=== PATIENT | male | born 1980 | race Caucasian/White ===

== ENCOUNTER 2017-11-24 22:03 | Emergency (ER) | payer MEDICAID ==
[~2017-11-24] VITALS: Ht 195.6 cm; Wt 101.2 kg
[~2017-11-24 22:03] MED LIST: ALBU6.7H INH; DIVA500T7 PO; GEO20I IM; LORA2TAB96 PO; RISP3TAB11 PO; TOPI50TA24 PO; ZIPR20CA2 PO
[2017-11-24 22:15] VITALS: BP 134/102
== END 2017-11-24 22:30 | disposition home or self-care (01) ==
LOC: ER 22:04
DX: Z00.8 Encounter for other general examination (principal); F15.10 Other stimulant abuse, uncomplicated; G89.29 Other chronic pain; M54.9 Dorsalgia, unspecified; Z79.899 Other long term (current) drug therapy
CPT/HCPCS: 99281

== ENCOUNTER 2017-11-26 17:09 | Emergency (ER) | payer MEDICAID ==
[~2017-11-26] VITALS: Ht 213244.9 cm; Wt 101.5 kg
[2017-11-26 17:45] LABS: BASOPHILS % (AUTO) 0.4 % (0-1); EOSINOPHILS # (AUTO) 0.3 X10'3 (0-0.9); EOSINOPHILS % (AUTO) 3.3 % (0-6); HEMATOCRIT 44.9 % (42.0-52.0); HEMOGLOBIN 15.2 g/dl (14.0-17.9); LYMPHOCYTES # (AUTO) 3.2 X10'3 (1.1-4.8); MEAN CORPUSCULAR HGB CONC 33.9 % (33.0-36.5); MEAN CORPUSCULAR VOLUME 88.7 FL (78-98); MEAN PLATELET VOLUME 8.6 FL (7.4-10.4); MONOCYTES # (AUTO) 0.4 X10'3 (0-0.9); MONOCYTES % (AUTO) 4.2 % (2-12); NEUTROPHILS # (AUTO) 5.2 X10'3 (1.8-7.7); NEUTROPHILS % (AUTO) 57.1 % (42-75); PLATELET COUNT 309 X10'3 (140-440); RED BLOOD COUNT 5.07 X10'6 (4.70-6.10); RED CELL DISTRIBUTION WIDTH 13.9 % (11.5-14.5); WHITE BLOOD COUNT 9.2 X10'3 (4.5-11.0)
[2017-11-26] MEDS ORDERED: TOPI50TA PO (17:56)
[2017-11-26] MEDS ORDERED: IBUP-1984 PO (17:57)
[2017-11-26 17:59] LABS: ALANINE AMINOTRANSFERASE 58 U/L (12-78); ALBUMIN/GLOBULIN RATIO 1.2 (1.1-1.5); ALKALINE PHOSPHATASE 68 IU/L (46-116); ANION GAP 7 (8-16); ASPARTATE AMINO TRANSFERASE 39 U/L (10-37); BILIRUBIN,TOTAL 0.6 MG/DL (0.1-1.0); BLOOD UREA NITROGEN 9 MG/DL (7-18); BUN/CREATININE RATIO 10.1 (5.4-32.0); CALCIUM 9.6 MG/DL (8.5-10.1); CHLORIDE 104 MMOL/L (99-107); CREATININE 0.89 MG/DL (0.60-1.10); GLUCOSE 88 MG/DL (70-104); POTASSIUM 3.9 MMOL/L (3.5-5.1); SODIUM 144 MMOL/L (135-145); TOTAL CARBON DIOXIDE 32.8 MMOL/L (24-32); TOTAL PROTEIN 7.3 G/DL (6.4-8.2); eGFR > 90 ML/MIN
[2017-11-26 18:08] LABS: ETHANOL < 0.010 GM/DL (0.0-0.010)
[2017-11-26] MEDS ORDERED: ibuprofen tablet 400 MG TABLET PO PRN (19:20)
[2017-11-26] MEDS: topiramate 25mg tablet PO SCH (20:30)
[2017-11-26] MEDS: risperiDONE 0.5mg tablet PO SCH (20:30)
[2017-11-26] MEDS: divalproex sodium 500mg tablet.DR PO SCH (20:30)
[2017-11-27 02:53] LABS: URINE AMPHETAMINE SCREEN NEGATIVE (Neg); URINE BARBITUATE SCREEN NEGATIVE (Neg); URINE BENZODIAZEPINES SCREEN NEGATIVE (Neg); URINE CANNABINOID SCREEN NEGATIVE (Neg); URINE COCAINE SCREEN NEGATIVE (Neg); URINE METHADONE SCREEN NEGATIVE (Neg); URINE OPIATE SCREEN NEGATIVE (Neg); URINE PHENCYCLIDINE SCREEN NEGATIVE (Neg)
[2017-11-27] MEDS: risperiDONE 0.5mg tablet PO SCH ×2 (07:37→20:26)
[2017-11-27] MEDS: topiramate 25mg tablet PO SCH ×2 (07:37→20:26)
[2017-11-27] MEDS: divalproex sodium 500mg tablet.DR PO SCH ×2 (07:47→20:27)
[2017-11-27] MEDS: risperiDONE 2mg tablet PO SCH (20:26)
[2017-11-28] MEDS: risperiDONE 2mg tablet PO SCH (08:13)
[2017-11-28] MEDS: divalproex sodium 500mg tablet.DR PO SCH (08:13)
[2017-11-28] MEDS: topiramate 25mg tablet PO SCH (08:14)
[2017-11-28] MEDS: risperiDONE 0.5mg tablet PO SCH (08:14)
[2017-11-28 09:57] VITALS: BP 99/58
== END 2017-11-28 09:59 ==
LOC: ER 17:10
DX: R45.851 Suicidal ideations (principal); F25.9 Schizoaffective disorder, unspecified; F15.10 Other stimulant abuse, uncomplicated; F17.200 Nicotine dependence, unspecified, uncomplicated; F41.9 Anxiety disorder, unspecified; G89.29 Other chronic pain; Z59.0 Homelessness
CPT/HCPCS: 36415; 80053; 80305; 80320; 84443; 85025; 99285

== ENCOUNTER 2017-11-29 03:08 | Emergency (ER) | payer MEDICAID ==
[~2017-11-29] VITALS: Ht 195.6 cm; Wt 100.0 kg
[~2017-11-29 03:08] MED LIST changes: -ALBU6.7H INH; -GEO20I IM; +IBUP-1984 PO; -LORA2TAB96 PO; +TOPI50TA PO; -TOPI50TA24 PO; -ZIPR20CA2 PO
[2017-11-29 03:45] VITALS: BP 118/85
== END 2017-11-29 03:47 | disposition home or self-care (01) ==
LOC: ER 03:09
DX: R41.0 Disorientation, unspecified (principal); G89.29 Other chronic pain; F41.9 Anxiety disorder, unspecified; F31.9 Bipolar disorder, unspecified; F17.210 Nicotine dependence, cigarettes, uncomplicated; F15.10 Other stimulant abuse, uncomplicated; Z59.0 Homelessness; Z79.899 Other long term (current) drug therapy
CPT/HCPCS: 99281

== ENCOUNTER 2017-12-10 16:04 | Emergency (ER) | payer MEDICAID ==
[~2017-12-10] VITALS: Ht 195.6 cm; Wt 107.5 kg
[2017-12-10 16:07] VITALS: BP 120/74
[2017-12-10] MEDS ORDERED: CYCL-1 PO (17:12)
[2017-12-10] MEDS ORDERED: TRAM50TA2 PO (17:12)
== END 2017-12-10 17:16 | disposition home or self-care (01) ==
LOC: ER 16:05
DX: S00.83XA Contusion of other part of head, initial encounter (principal); S20.222A Contusion of left back wall of thorax, initial encounter; S20.221A Contusion of right back wall of thorax, initial encounter; M62.838 Other muscle spasm; M54.2 Cervicalgia; G89.29 Other chronic pain; F15.10 Other stimulant abuse, uncomplicated; Z98.890 Other specified postprocedural states; Y08.89XA Assault by other specified means, initial encounter; Y93.89 Activity, other specified; Y92.89 Other specified places as the place of occurrence of the external cause; Y99.8 Other external cause status
CPT/HCPCS: 72040; 99284; A6449

== ENCOUNTER 2017-12-10 22:22 | Emergency (ER) | payer MEDICAID ==
[~2017-12-10] VITALS: Ht 193 cm; Wt 106.0 kg
[~2017-12-10 22:22] MED LIST changes: +CYCL-1 PO; +TRAM50TA2 PO
[2017-12-10 22:30] VITALS: BP 126/85
== END 2017-12-10 23:48 | disposition left against medical advice (07) ==
LOC: ER 22:23
DX: R51 Headache (principal); Z53.21 Procedure and treatment not carried out due to patient leaving prior to being seen by health care provider

== ENCOUNTER 2017-12-12 20:54 | Emergency (ER) | payer MEDICAID ==
[~2017-12-12] VITALS: Ht 190.5 cm; Wt 100.0 kg
[2017-12-12] MEDS ORDERED: acetaminophen 325mg tablet PO ONE (21:30)
[2017-12-12] MEDS ORDERED: ibuprofen tablet 400 MG TABLET PO ONE (21:30)
[2017-12-12 21:46] VITALS: BP 125/83
== END 2017-12-12 21:47 | disposition home or self-care (01) ==
LOC: ER 20:55
DX: M79.672 Pain in left foot (principal); M79.671 Pain in right foot; G89.29 Other chronic pain; F15.10 Other stimulant abuse, uncomplicated; Z59.0 Homelessness
CPT/HCPCS: 99283

== ENCOUNTER 2017-12-13 16:59 | Emergency (ER) | payer MEDICAID ==
[~2017-12-13] VITALS: Ht 190.5 cm; Wt 106.0 kg
[2017-12-13 18:14] LABS: BASOPHILS % (AUTO) 0.3 % (0-1); EOSINOPHILS # (AUTO) 0.2 X10'3 (0-0.9); EOSINOPHILS % (AUTO) 1.8 % (0-6); HEMATOCRIT 42.5 % (42.0-52.0); HEMOGLOBIN 14.5 g/dl (14.0-17.9); LYMPHOCYTES % (AUTO) 33.6 % (21-51); MEAN CORPUSCULAR HEMOGLOBIN 29.8 PG (27.0-31.0); MEAN CORPUSCULAR HGB CONC 34.1 % (33.0-36.5); MEAN CORPUSCULAR VOLUME 87.2 FL (78-98); MEAN PLATELET VOLUME 8.4 FL (7.4-10.4); MONOCYTES # (AUTO) 0.5 X10'3 (0-0.9); MONOCYTES % (AUTO) 5.8 % (2-12); NEUTROPHILS # (AUTO) 5.2 X10'3 (1.8-7.7); NEUTROPHILS % (AUTO) 58.5 % (42-75); PLATELET COUNT 322 X10'3 (140-440); RED BLOOD COUNT 4.87 X10'6 (4.70-6.10); WHITE BLOOD COUNT 8.9 X10'3 (4.5-11.0)
[2017-12-13 18:40] LABS: ALANINE AMINOTRANSFERASE 28 U/L (12-78); ALBUMIN 3.7 G/DL (3.4-5.0); ALBUMIN/GLOBULIN RATIO 1.2 (1.1-1.5); ALKALINE PHOSPHATASE 67 IU/L (46-116); ANION GAP 11 (8-16); ASPARTATE AMINO TRANSFERASE 21 U/L (10-37); BILIRUBIN,TOTAL 0.6 MG/DL (0.1-1.0); BLOOD UREA NITROGEN 19 MG/DL (7-18); BUN/CREATININE RATIO 21.1 (5.4-32.0); CHLORIDE 108 MMOL/L (99-107); ETHANOL < 0.010 GM/DL (0.0-0.010); GLUCOSE 108 MG/DL (70-104); POTASSIUM 3.6 MMOL/L (3.5-5.1); SODIUM 143 MMOL/L (135-145); TOTAL CARBON DIOXIDE 24.5 MMOL/L (24-32); TOTAL PROTEIN 6.9 G/DL (6.4-8.2); eGFR > 90 ML/MIN
[2017-12-13] MEDS ORDERED: ibuprofen tablet 400 MG TABLET PO PRN (19:25)
[2017-12-13] MEDS ORDERED: risperiDONE 2mg tablet PO SCH (20:00)
[2017-12-13] MEDS: divalproex sodium 500mg tablet.DR PO SCH (20:00)
[2017-12-13 20:01] LABS: CLARITY,URINE CLEAR (Clear); COLOR,URINE YELLOW (Yellow); GLUCOSE, URINE NEGATIVE (Neg); KETONES,URINE 40 mg/dl (Neg); LEUKOCYTE ESTERASE ,URINE NEGATIVE (Neg); NITRITES, URINE NEGATIVE (Neg); OCCULT BLOOD,URINE NEGATIVE (Neg); PH,URINE 6.5 (4.8-8.0); PROTEIN,URINE TRACE mg/dl (Neg)
[2017-12-13 20:06] LABS: UA COLLECTION TYPE CLN CATCH MIDSTREAM
[2017-12-13 20:09] LABS: URINE AMPHETAMINE SCREEN NEGATIVE (Neg); URINE BARBITUATE SCREEN NEGATIVE (Neg); URINE BENZODIAZEPINES SCREEN NEGATIVE (Neg); URINE CANNABINOID SCREEN NEGATIVE (Neg); URINE COCAINE SCREEN NEGATIVE (Neg); URINE METHADONE SCREEN NEGATIVE (Neg); URINE OPIATE SCREEN NEGATIVE (Neg); URINE PHENCYCLIDINE SCREEN NEGATIVE (Neg)
[2017-12-13 20:10] LABS: WBC,URINE 0-4 /HPF (0-4)
[2017-12-13 20:11] LABS: BACTERIA,URINE NONE SEEN /HPF (Neg); HYALINE CASTS 0-3 /LPF (NEGATIVE); MUCUS STRANDS MANY /LPF (Neg); RBC,URINE NONE SEEN /HPF (0-2); SQUAMOUS EPITHELIAL CELL,UR FEW /LPF (FEW)
[2017-12-13] MEDS: risperiDONE 0.5mg tablet PO SCH (21:22)
[2017-12-13] MEDS: topiramate 25mg tablet PO SCH (21:22)
[2017-12-14 05:54] VITALS: BP 107/66
[2017-12-14] MEDS: divalproex sodium 500mg tablet.DR PO SCH (07:50)
[2017-12-14] MEDS: risperiDONE 0.5mg tablet PO SCH (07:50)
[2017-12-14] MEDS: topiramate 25mg tablet PO SCH (07:50)
== END 2017-12-14 10:46 ==
LOC: ER 17:00
DX: T14.91XA Suicide attempt, initial encounter (principal); F31.9 Bipolar disorder, unspecified; F41.9 Anxiety disorder, unspecified; G89.29 Other chronic pain; F15.10 Other stimulant abuse, uncomplicated; Z59.0 Homelessness; Z79.899 Other long term (current) drug therapy; Y93.89 Activity, other specified; X83.8XXA Intentional self-harm by other specified means, initial encounter; Y99.8 Other external cause status; Y92.89 Other specified places as the place of occurrence of the external cause
CPT/HCPCS: 36415; 80053; 80305; 80320; 81001; 84443; 85025; 99285

== ENCOUNTER 2018-01-09 00:27 | Emergency (ER) | payer MEDICAID ==
[~2018-01-09] VITALS: Ht 190.5 cm; Wt 105.0 kg
[2018-01-09 00:50] VITALS: BP 137/79
== END 2018-01-09 00:50 | disposition home or self-care (01) ==
LOC: ER 00:27
DX: F29 Unspecified psychosis not due to a substance or known physiological condition (principal); G89.29 Other chronic pain; F15.90 Other stimulant use, unspecified, uncomplicated; Z59.0 Homelessness; Z79.899 Other long term (current) drug therapy
CPT/HCPCS: 99284

== ENCOUNTER 2018-01-15 14:18 | Emergency (ER) | payer MEDICAID ==
[~2018-01-15] VITALS: Ht 193 cm; Wt 105.7 kg
[~2018-01-15 14:18] MED LIST changes: -TRAM50TA2 PO
[2018-01-15 17:23] VITALS: BP 136/78
== END 2018-01-15 17:25 | disposition home or self-care (01) ==
LOC: ER 14:18
DX: R21 Rash and other nonspecific skin eruption (principal); F20.9 Schizophrenia, unspecified; F41.9 Anxiety disorder, unspecified; G89.29 Other chronic pain; F17.200 Nicotine dependence, unspecified, uncomplicated; F15.10 Other stimulant abuse, uncomplicated; Z79.899 Other long term (current) drug therapy; Z59.0 Homelessness
CPT/HCPCS: 99281

== ENCOUNTER 2018-04-29 17:43 | Emergency (ER) | payer MEDICAID ==
[~2018-04-29] VITALS: Ht 673.2 cm; Wt 112.7 kg
[2018-04-29] MEDS ORDERED: LORazepam 1 MG tablet PO ONE (18:10)
[2018-04-29] MEDS ORDERED: OLANZapine 5mg rapidly disint. tablet PO ONE (18:10)
[2018-04-29] MEDS ORDERED: diphenhydrAMINE 25mg capsule PO ONE (18:10)
[2018-04-29 18:22] LABS: BASOPHILS # (AUTO) 0.1 X10'3 (0-0.2); BASOPHILS % (AUTO) 0.9 % (0-1); EOSINOPHILS # (AUTO) 0.3 X10'3 (0-0.9); EOSINOPHILS % (AUTO) 2.6 % (0-6); HEMATOCRIT 46.3 % (42.0-52.0); HEMOGLOBIN 16.1 g/dl (14.0-17.9); LYMPHOCYTES # (AUTO) 4.1 X10'3 (1.1-4.8); LYMPHOCYTES % (AUTO) 41.2 % (21-51); MEAN CORPUSCULAR HEMOGLOBIN 31.4 PG (27.0-31.0); MEAN CORPUSCULAR HGB CONC 34.7 % (33.0-36.5); MEAN CORPUSCULAR VOLUME 90.4 FL (78-98); MEAN PLATELET VOLUME 8.8 FL (7.4-10.4); MONOCYTES # (AUTO) 0.5 X10'3 (0-0.9); NEUTROPHILS % (AUTO) 50.3 % (42-75); PLATELET COUNT 254 X10'3 (140-440); RED BLOOD COUNT 5.12 X10'6 (4.70-6.10); RED CELL DISTRIBUTION WIDTH 14.1 % (11.5-14.5); WHITE BLOOD COUNT 9.9 X10'3 (4.5-11.0)
[2018-04-29] MEDS ORDERED: ziprasidone IM 20mg inj **IM only IM ONE (18:35)
[2018-04-29 18:54] LABS: ALANINE AMINOTRANSFERASE 36 U/L (12-78); ALBUMIN/GLOBULIN RATIO 1.1 (1.1-1.5); ALKALINE PHOSPHATASE 63 IU/L (46-116); ANION GAP 12 (8-16); ASPARTATE AMINO TRANSFERASE 22 U/L (10-37); BILIRUBIN,TOTAL 0.4 MG/DL (0.1-1.0); BLOOD UREA NITROGEN 14 MG/DL (7-18); BUN/CREATININE RATIO 14.1 (5.4-32.0); CHLORIDE 106 MMOL/L (99-107); CREATININE 0.99 MG/DL (0.60-1.10); GLUCOSE 102 MG/DL (70-104); POTASSIUM 4.1 MMOL/L (3.5-5.1); SODIUM 141 MMOL/L (135-145); TOTAL CARBON DIOXIDE 22.6 MMOL/L (24-32); TOTAL PROTEIN 7.6 G/DL (6.4-8.2); eGFR 84 ML/MIN
[2018-04-29 19:02] LABS: ETHANOL 0.023 GM/DL (0.0-0.010)
[2018-04-29 20:09] LABS: CLARITY,URINE CLEAR (Clear); COLOR,URINE YELLOW (Yellow); GLUCOSE, URINE NEGATIVE (Neg); KETONES,URINE TRACE mg/dl (Neg); LEUKOCYTE ESTERASE ,URINE NEGATIVE (Neg); NITRITES, URINE NEGATIVE (Neg); OCCULT BLOOD,URINE NEGATIVE (Neg); PH,URINE 8.5 (4.8-8.0); PROTEIN,URINE NEGATIVE (Neg); UROBILINOGEN,URINE 0.2 E.U/dL (0.2-1.0)
[2018-04-29 20:14] LABS: UA COLLECTION TYPE NON-SPECIFIED
[2018-04-29 20:18] LABS: URINE AMPHETAMINE SCREEN NEGATIVE (Neg); URINE BARBITUATE SCREEN NEGATIVE (Neg); URINE BENZODIAZEPINES SCREEN NEGATIVE (Neg); URINE CANNABINOID SCREEN NEGATIVE (Neg); URINE COCAINE SCREEN NEGATIVE (Neg); URINE METHADONE SCREEN NEGATIVE (Neg); URINE OPIATE SCREEN POSITIVE (Neg); URINE PHENCYCLIDINE SCREEN NEGATIVE (Neg)
[2018-04-29] MEDS ORDERED: OLANZapine **IM** 10 mg inj. IM PRN (22:35)
[2018-04-30] MEDS: risperiDONE 2mg tablet PO SCH ×2 (08:33→22:04)
[2018-04-30] MEDS: topiramate 25mg tablet PO SCH ×2 (08:33→22:03)
[2018-04-30] MEDS: divalproex sodium 500mg tablet.DR PO SCH ×2 (08:33→22:03)
[2018-04-30] MEDS: nicotine 21mg patch - 24 hr TD SCH (10:52)
[2018-04-30] MEDS ORDERED: LORazepam 2 mg/ml vial IM ONE (16:20)
[2018-05-01] MEDS: nicotine 21mg patch - 24 hr TD SCH (08:18)
[2018-05-01] MEDS: divalproex sodium 500mg tablet.DR PO SCH ×2 (08:18→19:13)
[2018-05-01] MEDS: risperiDONE 2mg tablet PO SCH ×2 (08:18→19:15)
[2018-05-01] MEDS: topiramate 25mg tablet PO SCH ×2 (08:18→19:14)
[2018-05-01] MEDS ORDERED: LORazepam 2 mg/ml vial IM ONE (08:55)
[2018-05-01] MEDS ORDERED: haloperidol lactate 5mg/ml inj IM ONE (09:07)
[2018-05-01] MEDS ORDERED: diphenhydrAMINE 50 mg/ml inj ONE (09:08)
[2018-05-01] MEDS ORDERED: traZODone 50mg tablet PO PRN (20:15)
[2018-05-01] MEDS ORDERED: Melatonin 3mg tablet PO SCH (21:00)
[2018-05-02] MEDS: divalproex sodium 500mg tablet.DR PO SCH (08:22)
[2018-05-02] MEDS: risperiDONE 2mg tablet PO SCH (08:22)
[2018-05-02] MEDS: topiramate 25mg tablet PO SCH (08:23)
[2018-05-02] MEDS: nicotine 21mg patch - 24 hr TD SCH (08:23)
[2018-05-02] MEDS ORDERED: haloperidol lactate 5mg/ml inj IM ONE (09:45)
[2018-05-02] MEDS ORDERED: LORazepam 2 mg/ml vial IM ONE (09:45)
[2018-05-02] MEDS ORDERED: diphenhydrAMINE 50 mg/ml inj IM ONE (09:45)
[2018-05-02 12:00] VITALS: BP 111/64
== END 2018-05-02 09:45 ==
LOC: ER 17:43
DX: F20.9 Schizophrenia, unspecified (principal); F31.9 Bipolar disorder, unspecified; F41.9 Anxiety disorder, unspecified; F29 Unspecified psychosis not due to a substance or known physiological condition; G89.29 Other chronic pain; F15.10 Other stimulant abuse, uncomplicated; Z79.899 Other long term (current) drug therapy
CPT/HCPCS: 36415; 80053; 80164; 80305; 80320; 81003; 84443; 85025; 96372; 99285; J2060; J3486; Q0163

== ENCOUNTER 2018-07-06 10:19 | Emergency (ER) | payer MEDICAID ==
[~2018-07-06] VITALS: Ht 188 cm; Wt 102.3 kg
[~2018-07-06 10:19] MED LIST changes: +DIVA-76 PO; -DIVA500T7 PO
[2018-07-06 10:29] VITALS: BP 148/101
[2018-07-06] MEDS ORDERED: ketorolac trometh inj. 60 MG/2 ML VIAL IM ONE (11:05)
== END 2018-07-06 11:46 | disposition home or self-care (01) ==
LOC: ER 10:20
DX: R52 Pain, unspecified (principal); R11.10 Vomiting, unspecified; R19.7 Diarrhea, unspecified; G89.29 Other chronic pain; F15.90 Other stimulant use, unspecified, uncomplicated; Z88.8 Allergy status to other drugs, medicaments and biological substances; Z79.899 Other long term (current) drug therapy
CPT/HCPCS: 96372; 99284; J1885

== ENCOUNTER 2018-07-08 11:13 | Emergency (ER) | payer MEDICAID ==
[~2018-07-08] VITALS: Ht 190.5 cm; Wt 125.0 kg
[2018-07-08 11:19] VITALS: BP 130/84
[2018-07-08] MEDS ORDERED: IBUP-1984 PO (22:42)
== END 2018-07-08 12:13 | disposition left against medical advice (07) ==
LOC: ER 11:14
DX: M54.2 Cervicalgia (principal); Z53.21 Procedure and treatment not carried out due to patient leaving prior to being seen by health care provider

== ENCOUNTER 2018-09-26 07:00 | Emergency (ER) | payer MEDICAID | END 2018-09-26 07:15 | disposition left against medical advice (07) | LOC: ER 07:01 | DX: K08.89 Other specified disorders of teeth and supporting structures (principal); Z53.21 Procedure and treatment not carried out due to patient leaving prior to being seen by health care provider ==

== ENCOUNTER 2020-02-04 00:39 | Emergency (ER) | payer MEDICAID ==
[~2020-02-04] VITALS: Ht 188 cm; Wt 113.0 kg
[2020-02-04] MEDS ORDERED: ACET-3068 PO (01:56)
[2020-02-04 02:03] VITALS: BP 136/89
== END 2020-02-04 02:05 | disposition home or self-care (01) ==
LOC: ER 00:40
DX: K02.9 Dental caries, unspecified (principal); G89.29 Other chronic pain; F31.9 Bipolar disorder, unspecified; F41.9 Anxiety disorder, unspecified; F20.9 Schizophrenia, unspecified; F17.200 Nicotine dependence, unspecified, uncomplicated; Z86.69 Personal history of other diseases of the nervous system and sense organs; Z88.8 Allergy status to other drugs, medicaments and biological substances; Z79.899 Other long term (current) drug therapy
CPT/HCPCS: 99283

== ENCOUNTER 2020-04-05 23:09 | Emergency (ER) | payer MEDICAID ==
[~2020-04-05] VITALS: Ht 195.6 cm; Wt 115.0 kg
[2020-04-05 23:14] VITALS: BP 130/89
== END 2020-04-06 00:12 | disposition home or self-care (01) ==
LOC: ER 23:10
DX: Z00.00 Encounter for general adult medical examination without abnormal findings (principal); G89.29 Other chronic pain; F41.9 Anxiety disorder, unspecified; F31.9 Bipolar disorder, unspecified; F29 Unspecified psychosis not due to a substance or known physiological condition; F20.9 Schizophrenia, unspecified; Z86.69 Personal history of other diseases of the nervous system and sense organs; Z88.8 Allergy status to other drugs, medicaments and biological substances; Z79.899 Other long term (current) drug therapy
CPT/HCPCS: 99281

== ENCOUNTER 2020-04-18 16:54 | Emergency (ER) | payer MEDICAID ==
[~2020-04-18] VITALS: Ht 190.5 cm; Wt 115.0 kg
[2020-04-18 17:03] VITALS: BP 130/81
[2020-04-18 19:03] LABS: BASOPHILS # (AUTO) 0.1 X10'3 (0-0.2); BASOPHILS % (AUTO) 0.4 % (0-1); EOSINOPHILS # (AUTO) 0.5 X10'3 (0-0.9); EOSINOPHILS % (AUTO) 3.9 % (0-6); HEMOGLOBIN 15.5 g/dl (14.0-17.9); LYMPHOCYTES # (AUTO) 3.6 X10'3 (1.1-4.8); LYMPHOCYTES % (AUTO) 30.5 % (21-51); MEAN CORPUSCULAR HEMOGLOBIN 30.3 PG (27.0-31.0); MEAN CORPUSCULAR HGB CONC 34.4 g/dL (33.0-36.5); MEAN CORPUSCULAR VOLUME 88.2 FL (78-98); MEAN PLATELET VOLUME 8.5 FL (7.4-10.4); MONOCYTES # (AUTO) 0.7 X10'3 (0-0.9); MONOCYTES % (AUTO) 6.2 % (2-12); NEUTROPHILS # (AUTO) 6.9 X10'3 (1.8-7.7); PLATELET COUNT 383 X10'3 (140-440); RED CELL DISTRIBUTION WIDTH 13.8 % (11.5-14.5); WHITE BLOOD COUNT 11.7 X10'3 (4.5-11.0)
[2020-04-18 19:17] LABS: PARTIAL THROMBOPLASTIN TIME 32 SECONDS (22-32)
[2020-04-18 19:18] LABS: D-DIMER < 0.19 MG/L FEU (0-0.50)
[2020-04-18 19:23] LABS: ALANINE AMINOTRANSFERASE 30 U/L (12-78); ALBUMIN/GLOBULIN RATIO 1.3 (1.1-1.5); ALKALINE PHOSPHATASE 58 IU/L (46-116); ANION GAP 11 (8-16); ASPARTATE AMINO TRANSFERASE 22 U/L (10-37); BILIRUBIN,TOTAL 0.4 MG/DL (0.1-1.0); BLOOD UREA NITROGEN 14 MG/DL (7-18); CALCIUM 8.9 MG/DL (8.5-10.1); CHLORIDE 106 MMOL/L (99-107); CREATININE 1.08 MG/DL (0.60-1.10); GLUCOSE 92 MG/DL (70-104); POTASSIUM 4.1 MMOL/L (3.5-5.1); SODIUM 140 MMOL/L (135-145); TOTAL CARBON DIOXIDE 23.4 MMOL/L (24-32); TOTAL PROTEIN 7.2 G/DL (6.4-8.2); eGFR 75 ML/MIN
[2020-04-18] MEDS ORDERED: NAPR-56 PO (19:39)
[2020-04-18] MEDS ORDERED: naproxen 500mg tablet PO ONE ×2 (19:40)
== END 2020-04-18 19:57 | disposition home or self-care (01) ==
LOC: ER 16:55
DX: G89.29 Other chronic pain (principal); F17.200 Nicotine dependence, unspecified, uncomplicated; Z88.8 Allergy status to other drugs, medicaments and biological substances
CPT/HCPCS: 36415; 80053; 85025; 85379; 85610; 85730; 99283

== ENCOUNTER 2020-05-18 12:13 | Emergency (ER) | payer MEDICAID ==
[~2020-05-18] VITALS: Ht 193 cm; Wt 113.6 kg
[~2020-05-18 12:13] MED LIST changes: +NAPR-56 PO
[2020-05-18 12:51] VITALS: BP 112/74
[2020-05-18] MEDS ORDERED: ketorolac trometh inj. 60 MG/2 ML VIAL IM ONE (13:55)
[2020-05-18] MEDS ORDERED: CYCL-1 PO (13:57)
[2020-05-18] MEDS ORDERED: NAPR-56 PO (13:57)
== END 2020-05-18 14:51 | disposition home or self-care (01) ==
LOC: ER 12:14
DX: M54.5 Low back pain (principal); G89.29 Other chronic pain; F41.9 Anxiety disorder, unspecified; F20.9 Schizophrenia, unspecified; F31.9 Bipolar disorder, unspecified; Z86.69 Personal history of other diseases of the nervous system and sense organs; Z59.0 Homelessness; Z79.899 Other long term (current) drug therapy
CPT/HCPCS: 96372; 99283; J1885

== ENCOUNTER 2020-05-19 21:40 | Emergency (ER) | payer MEDICAID ==
[~2020-05-19] VITALS: Ht 188 cm; Wt 117.3 kg
[2020-05-19 23:15] LABS: BASOPHILS # (AUTO) 0.1 X10'3 (0-0.2); BASOPHILS % (AUTO) 0.6 % (0-1); EOSINOPHILS # (AUTO) 0.3 X10'3 (0-0.9); EOSINOPHILS % (AUTO) 2.5 % (0-6); HEMOGLOBIN 16.2 g/dl (14.0-17.9); LYMPHOCYTES # (AUTO) 2.8 X10'3 (1.1-4.8); LYMPHOCYTES % (AUTO) 24.3 % (21-51); MEAN CORPUSCULAR HEMOGLOBIN 30.9 PG (27.0-31.0); MEAN CORPUSCULAR HGB CONC 34.4 g/dL (33.0-36.5); MEAN CORPUSCULAR VOLUME 89.8 FL (78-98); MEAN PLATELET VOLUME 8.4 FL (7.4-10.4); MONOCYTES % (AUTO) 9.1 % (2-12); NEUTROPHILS # (AUTO) 7.2 X10'3 (1.8-7.7); NEUTROPHILS % (AUTO) 63.5 % (42-75); PLATELET COUNT 368 X10'3 (140-440); RED BLOOD COUNT 5.24 X10'6 (4.70-6.10); RED CELL DISTRIBUTION WIDTH 14.2 % (11.5-14.5); WHITE BLOOD COUNT 11.4 X10'3 (4.5-11.0)
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
[2020-05-19 23:33] LABS: ALANINE AMINOTRANSFERASE 41 U/L (12-78); ALBUMIN 4.4 G/DL (3.4-5.0); ALBUMIN/GLOBULIN RATIO 1.3 (1.1-1.5); ALKALINE PHOSPHATASE 67 IU/L (46-116); ANION GAP 14 (8-16); ASPARTATE AMINO TRANSFERASE 36 U/L (10-37); BLOOD UREA NITROGEN 31 MG/DL (7-18); BUN/CREATININE RATIO 25.8 (5.4-32.0); CALCIUM 9.5 MG/DL (8.5-10.1); CHLORIDE 100 MMOL/L (99-107); ETHANOL < 0.010 GM/DL (0.0-0.010); GLUCOSE 92 MG/DL (70-104); POTASSIUM 3.8 MMOL/L (3.5-5.1); SODIUM 137 MMOL/L (135-145); TOTAL CARBON DIOXIDE 23.4 MMOL/L (24-32); TOTAL PROTEIN 7.7 G/DL (6.4-8.2); eGFR 67 ML/MIN
[2020-05-19 23:55] LABS: URINE AMPHETAMINE SCREEN NEGATIVE (Neg); URINE BARBITUATE SCREEN NEGATIVE (Neg); URINE BENZODIAZEPINES SCREEN NEGATIVE (Neg); URINE CANNABINOID SCREEN NEGATIVE (Neg); URINE COCAINE SCREEN NEGATIVE (Neg); URINE METHADONE SCREEN NEGATIVE (Neg); URINE OPIATE SCREEN NEGATIVE (Neg); URINE PHENCYCLIDINE SCREEN NEGATIVE (Neg)
--- NOTE | 2020-05-20 00:13 | NUR ---
packet faxed to [facility]
--- NOTE | 2020-05-20 01:09 | NUR ---
The patient appears to be sleeping
--- NOTE | 2020-05-20 02:34 | NUR ---
The patient appears to be sleeping
--- NOTE | 2020-05-20 04:00 | NUR ---
The patient appears to be sleeping
[2020-05-20] MEDS ORDERED: CYCL-1 PO (05:53)
[2020-05-20] MEDS ORDERED: DIVA500T9 PO (05:53)
[2020-05-20] MEDS ORDERED: NAPR-1154 PO (05:53)
[2020-05-20] MEDS ORDERED: RISP3TAB11 PO (05:53)
[2020-05-20] MEDS ORDERED: IBUP-1984 PO (05:53)
[2020-05-20] MEDS ORDERED: TOPI50TA PO (05:53)
--- NOTE | 2020-05-20 07:30 | NUR ---
Nursing Note: Pt laying in bed, eyes closed, no S&S of distress, RR even and unlabored, will continue to monitor.
[2020-05-20] MEDS: naproxen 500mg tablet PO SCH ×2 (08:42→20:13)
[2020-05-20] MEDS: cyclobenzaprine 10mg tablet PO SCH ×2 (08:42→16:50)
[2020-05-20] MEDS: topiramate 25mg tablet PO SCH ×2 (08:42→20:14)
[2020-05-20] MEDS: divalproex sodium 500mg tablet.DR PO SCH ×2 (08:42→20:13)
[2020-05-20] MEDS: risperiDONE 0.5mg tablet PO SCH ×2 (08:43→20:14)
--- NOTE | 2020-05-20 09:17 | NUR ---
Nursing Note: Pt laying in bed on his back, eyes closed, RR even and unlabored, no S&S of distress, will continue to monitor.
[2020-05-20] MEDS ORDERED: albuterol 2.5 MG/3 ML nebule NEB ONE (09:50)
--- NOTE | 2020-05-20 09:50 | NUR ---
Nursing Note: Notified Dr. Brown that pt was complaining of SOB and requesting inhaler. Awaiting orders and will continue to monitor.
--- NOTE | 2020-05-20 11:01 | NUR ---
Nursing Note: Pt laying on R side, RR even and unlabored, no S&S of distress, will continue to monitor.
--- NOTE | 2020-05-20 12:12 | NUR ---
Nursing Note: Pt laying on L side, RT at bedside administering breathing treatment, no S&S of distress, will continue to monitor.
--- NOTE | 2020-05-20 14:00 | NUR ---
Nursing Note: Pt laying in bed with eyes closed, RR even and unlabored, no S&S of distress, will continue to monitor.
--- NOTE | 2020-05-20 15:34 | NUR ---
Nursing Note: Pt laying on L side, eyes closed, appears asleep, RR even and unlabored, will continue to monitor.
--- NOTE | 2020-05-20 16:53 | NUR ---
Nursing Note: Pt awakened to administer Flexeril. After taking medication, pt rolled over and shut his eyes. No S&S of distress, will continue to monitor.
--- NOTE | 2020-05-20 19:20 | NUR ---
One to one with the patient who is resting on his bed. He appears disheveled. He has been quiet and cooperative with the assessment. He has not had any threatening or agitated behaviors. When asked how his mood was he stated, "ailyn confused and stuff" and when asked to elaborate he replied, "I just don't understand how people can be so crappy in the world" He reports suicidal thoughts earlier in the day but not currently. When asked if he had a plan he replied, "Just a bridge. The kind that can't be burnt but you can sure jump off" When asked about AH "A little bit. Just like stuff from the past. Like playing a tape back from the past" He denied being paranoid.
[2020-05-20] MEDS ORDERED: divalproex sodium 500mg tablet.DR PO ONE (20:25)
--- NOTE | 2020-05-20 20:46 | NUR ---
Geovanni Chou is requesting TSH and UA. MD made aware and orders received.
--- NOTE | 2020-05-20 22:06 | NUR ---
The patient appears to be sleeping
--- NOTE | 2020-05-20 23:21 | NUR ---
The patient appears to be sleeping
--- NOTE | 2020-05-21 01:49 | NUR ---
The patient appears to be sleeping
--- NOTE | 2020-05-21 04:05 | NUR ---
The patient appears to be sleeping
[2020-05-21 04:24] LABS: CLARITY,URINE CLEAR (Clear); COLOR,URINE YELLOW (Yellow); GLUCOSE, URINE NEGATIVE (Neg); KETONES,URINE TRACE mg/dl (Neg); LEUKOCYTE ESTERASE ,URINE NEGATIVE (Neg); NITRITES, URINE NEGATIVE (Neg); OCCULT BLOOD,URINE NEGATIVE (Neg); PROTEIN,URINE NEGATIVE (Neg); UROBILINOGEN,URINE 0.2 E.U/dL (0.2-1.0)
[2020-05-21 04:29] LABS: UA COLLECTION TYPE CLN CATCH MIDSTREAM
[2020-05-21 06:14] VITALS: BP 112/61
--- NOTE | 2020-05-21 06:15 | NUR ---
Received report from JAZZ Schmidt. Patient is resting in bed peacefully in the prone position. No distress observed.
[2020-05-21] MEDS ORDERED: divalproex sodium 500mg tablet.DR PO SCH (08:00)
[2020-05-21] MEDS: naproxen 500mg tablet PO SCH (08:12)
[2020-05-21] MEDS: cyclobenzaprine 10mg tablet PO SCH ×2 (08:12)
[2020-05-21] MEDS: topiramate 25mg tablet PO SCH (08:12)
[2020-05-21] MEDS: risperiDONE 0.5mg tablet PO SCH (08:12)
--- NOTE | 2020-05-21 08:25 | NUR ---
Patient is leaning on left elbow, eating breakfast. He is pleasant and cooperative but guarded and takes his medications as ordered without protest. He states that he has been in [facility] for 7-8 years, but it has been "terrible for the last 5". When asked if he would care to elaborate, he states "maybe someday I will talk about it, but not today."
[2020-05-21] MEDS ORDERED: NICOTINE POLACRILEX 4 MG LOZENGE BC PRN (08:45)
--- NOTE | 2020-05-21 08:58 | NUR ---
Shaheed, at [facility] is at bedside re-evaluating patient as he states that he is no longer suicidal.
--- NOTE | 2020-05-21 09:23 | NUR ---
Patient d/c'd home from unit, ambulating self in no distress, accompanied by security. Patient curtrently denies SI, HI, A/VH. All items inventoried and in patient's possession at time of discharge.
== END 2020-05-21 09:27 | disposition home or self-care (01) ==
LOC: ER 21:41
DX: F79 Unspecified intellectual disabilities (principal); G89.29 Other chronic pain; F41.9 Anxiety disorder, unspecified; F31.9 Bipolar disorder, unspecified; F20.9 Schizophrenia, unspecified; F29 Unspecified psychosis not due to a substance or known physiological condition; Z59.0 Homelessness; Z79.899 Other long term (current) drug therapy
CPT/HCPCS: 36415; 80053; 80305; 80320; 81003; 84443; 85025; 99284; 99285

== ENCOUNTER 2020-05-24 22:36 | Emergency (ER) | payer MEDICAID ==
[~2020-05-24] VITALS: Ht 193 cm; Wt 95.5 kg
[~2020-05-24 22:36] MED LIST changes: -DIVA-76 PO; +DIVA500T9 PO; -IBUP-1984 PO; +NAPR-1154 PO; -NAPR-56 PO
[2020-05-24 22:43] VITALS: BP 133/85
== END 2020-05-24 22:59 | disposition home or self-care (01) ==
LOC: ER 22:38
DX: M79.642 Pain in left hand (principal); M79.641 Pain in right hand; G89.29 Other chronic pain; F41.9 Anxiety disorder, unspecified; F31.9 Bipolar disorder, unspecified; F20.9 Schizophrenia, unspecified; F17.200 Nicotine dependence, unspecified, uncomplicated; Z72.89 Other problems related to lifestyle; Z86.69 Personal history of other diseases of the nervous system and sense organs; Z76.5 Malingerer [conscious simulation]; Z59.0 Homelessness; W53.01XA Bitten by mouse, initial encounter; Y93.89 Activity, other specified; Y92.89 Other specified places as the place of occurrence of the external cause; Y99.8 Other external cause status
CPT/HCPCS: 99283

== ENCOUNTER 2021-05-08 20:11 | Emergency (ER) | payer MEDICAID | END 2021-05-08 22:06 | disposition left against medical advice (07) | LOC: ER 20:12 | DX: T78.40XA Allergy, unspecified, initial encounter (principal); Z53.21 Procedure and treatment not carried out due to patient leaving prior to being seen by health care provider; X58.XXXA Exposure to other specified factors, initial encounter ==

== ENCOUNTER 2021-05-15 09:30 | Emergency (ER) | payer MEDICAID ==
[~2021-05-15] VITALS: Ht 190.5 cm; Wt 95.0 kg
[2021-05-15 10:27] VITALS: BP 140/92
[2021-05-15 10:37] LABS: BASOPHILS % (AUTO) 0.4 % (0-1); EOSINOPHILS # (AUTO) 0.2 X10'3 (0-0.9); EOSINOPHILS % (AUTO) 1.3 % (0-6); HEMATOCRIT 46.2 % (42.0-52.0); HEMOGLOBIN 15.9 g/dl (14.0-17.9); LYMPHOCYTES # (AUTO) 2.7 X10'3 (1.1-4.8); LYMPHOCYTES % (AUTO) 22.1 % (21-51); MEAN CORPUSCULAR HEMOGLOBIN 30.6 PG (27.0-31.0); MEAN CORPUSCULAR HGB CONC 34.5 g/dL (33.0-36.5); MEAN CORPUSCULAR VOLUME 88.6 FL (78-98); MEAN PLATELET VOLUME 8.7 FL (7.4-10.4); MONOCYTES # (AUTO) 1.2 X10'3 (0-0.9); MONOCYTES % (AUTO) 9.9 % (2-12); NEUTROPHILS % (AUTO) 66.3 % (42-75); PLATELET COUNT 378 X10'3 (140-440); RED BLOOD COUNT 5.21 X10'6 (4.70-6.10)
[2021-05-15 10:45] LABS: ALANINE AMINOTRANSFERASE 49 U/L (12-78); ALBUMIN 4.2 G/DL (3.4-5.0); ALBUMIN/GLOBULIN RATIO 1.2 (1.1-1.5); ALKALINE PHOSPHATASE 59 IU/L (46-116); ANION GAP 13 (8-16); ASPARTATE AMINO TRANSFERASE 25 U/L (10-37); BILIRUBIN,TOTAL 1.2 MG/DL (0.1-1.0); BLOOD UREA NITROGEN 25 MG/DL (7-18); BUN/CREATININE RATIO 13.4 (5.4-32.0); CALCIUM 8.9 MG/DL (8.5-10.1); CHLORIDE 94 MMOL/L (99-107); CREATININE 1.87 MG/DL (0.60-1.10); GLUCOSE 98 MG/DL (70-104); SODIUM 131 MMOL/L (135-145); TOTAL CARBON DIOXIDE 23.7 MMOL/L (24-32); TOTAL PROTEIN 7.6 G/DL (6.4-8.2); eGFR 40 ML/MIN
[2021-05-15] MEDS ORDERED: normal saline 1000ml 1,000 ML IV ONE (10:55)
== END 2021-05-15 11:51 | disposition home or self-care (01) ==
LOC: ER 09:30
DX: E86.0 Dehydration (principal); R00.2 Palpitations; R42 Dizziness and giddiness; R07.89 Other chest pain; G89.29 Other chronic pain; R60.0 Localized edema; F31.9 Bipolar disorder, unspecified; F20.9 Schizophrenia, unspecified; F17.200 Nicotine dependence, unspecified, uncomplicated; Z86.69 Personal history of other diseases of the nervous system and sense organs; Z59.0 Homelessness; Z79.899 Other long term (current) drug therapy
CPT/HCPCS: 71045; 80053; 83880; 84484; 85025; 93005; 96360; 99285; J7030

== ENCOUNTER 2021-05-30 19:01 | Emergency (ER) | payer MEDICAID ==
[~2021-05-30] VITALS: Ht 185.4 cm; Wt 105.5 kg
[2021-05-30 19:44] LABS: BASOPHILS # (AUTO) 0.1 X10'3 (0-0.2); BASOPHILS % (AUTO) 0.5 % (0-1); EOSINOPHILS # (AUTO) 0.4 X10'3 (0-0.9); EOSINOPHILS % (AUTO) 3.7 % (0-6); HEMATOCRIT 41.4 % (42.0-52.0); HEMOGLOBIN 14.3 g/dl (14.0-17.9); LYMPHOCYTES # (AUTO) 3.1 X10'3 (1.1-4.8); LYMPHOCYTES % (AUTO) 27.9 % (21-51); MEAN CORPUSCULAR HEMOGLOBIN 30.8 PG (27.0-31.0); MEAN CORPUSCULAR HGB CONC 34.6 g/dL (33.0-36.5); MEAN CORPUSCULAR VOLUME 88.9 FL (78-98); MEAN PLATELET VOLUME 8.4 FL (7.4-10.4); MONOCYTES # (AUTO) 0.8 X10'3 (0-0.9); MONOCYTES % (AUTO) 7.6 % (2-12); NEUTROPHILS # (AUTO) 6.7 X10'3 (1.8-7.7); NEUTROPHILS % (AUTO) 60.3 % (42-75); PLATELET COUNT 356 X10'3 (140-440); RED BLOOD COUNT 4.66 X10'6 (4.70-6.10); WHITE BLOOD COUNT 11.1 X10'3 (4.5-11.0)
[2021-05-30 19:58] LABS: ALBUMIN 3.8 G/DL (3.4-5.0); ANION GAP 9 (8-16); BLOOD UREA NITROGEN 19 MG/DL (7-18); BUN/CREATININE RATIO 13.8 (5.4-32.0); CALCIUM 8.4 MG/DL (8.5-10.1); CHLORIDE 103 MMOL/L (99-107); CREATININE 1.38 MG/DL (0.60-1.10); GLUCOSE 115 MG/DL (70-104); SODIUM 139 MMOL/L (135-145); TOTAL CARBON DIOXIDE 26.6 MMOL/L (24-32); eGFR 57 ML/MIN
[2021-05-30 20:19] VITALS: BP 100/76
[2021-05-30] MEDS ORDERED: potassium Cl 20 mEq SR tablet PO STA (20:19)
== END 2021-05-30 20:53 | disposition home or self-care (01) ==
LOC: ER 19:02
DX: T67.9XXA Effect of heat and light, unspecified, initial encounter (principal); E87.6 Hypokalemia; I10 Essential (primary) hypertension; G89.29 Other chronic pain; M54.9 Dorsalgia, unspecified; F31.9 Bipolar disorder, unspecified; X30.XXXA Exposure to excessive natural heat, initial encounter; Y93.89 Activity, other specified; Y92.89 Other specified places as the place of occurrence of the external cause; Y99.8 Other external cause status; Z59.0 Homelessness
CPT/HCPCS: 36415; 80048; 85025; 93005; 99284

== ENCOUNTER 2021-07-23 11:12 | Emergency (ER) | payer MEDICAID ==
[~2021-07-23] VITALS: Ht 190.5 cm; Wt 122.7 kg
[2021-07-23 11:46] VITALS: BP 144/75
== END 2021-07-23 13:46 | disposition left against medical advice (07) ==
LOC: ER 11:14
DX: R20.0 Anesthesia of skin (principal); I10 Essential (primary) hypertension; G89.29 Other chronic pain; F41.9 Anxiety disorder, unspecified; F31.9 Bipolar disorder, unspecified; F20.9 Schizophrenia, unspecified; Z86.69 Personal history of other diseases of the nervous system and sense organs; Z72.89 Other problems related to lifestyle; Z59.0 Homelessness; Z79.899 Other long term (current) drug therapy
CPT/HCPCS: 99281

== ENCOUNTER 2021-09-07 18:40 | Emergency (ER) | payer MEDICAID ==
[~2021-09-07] VITALS: Ht 190.5 cm; Wt 102.0 kg
[2021-09-07] MEDS ORDERED: bacitracin 15gm ointment TP ONE (22:55)
[2021-09-07] MEDS ORDERED: MUPI22OI30 TOP (23:00)
[2021-09-07 23:15] VITALS: BP 136/72
--- NOTE | 2021-09-07 23:15 | NUR ---
PATIENT SEEN BY MD, TREATED AND DISCHARGED.
== END 2021-09-07 23:24 | disposition home or self-care (01) ==
LOC: ER 18:40
DX: T14.8XXA Other injury of unspecified body region, initial encounter (principal); B99.8 Other infectious disease; I10 Essential (primary) hypertension; F41.9 Anxiety disorder, unspecified; F31.9 Bipolar disorder, unspecified; F20.9 Schizophrenia, unspecified; Z86.69 Personal history of other diseases of the nervous system and sense organs; Z72.89 Other problems related to lifestyle; Z59.00 Homelessness unspecified; Z79.899 Other long term (current) drug therapy; X58.XXXA Exposure to other specified factors, initial encounter; Y93.89 Activity, other specified; Y92.89 Other specified places as the place of occurrence of the external cause; Y99.8 Other external cause status
CPT/HCPCS: 99281

== ENCOUNTER 2021-12-23 18:53 | Emergency (ER) | payer MEDICAID ==
[~2021-12-23] VITALS: Ht 190.5 cm; Wt 86.0 kg
[2021-12-23] MEDS ORDERED: CYCL-1 PO (19:19)
[2021-12-23] MEDS ORDERED: NAPR-56 PO (19:19)
[2021-12-23] MEDS ORDERED: HYDROcodone/acetaminophen 5mg/325mg tablet PO ONE (19:20)
[2021-12-23] MEDS ORDERED: orphenadrine citrate 60mg/2ml inj. IM ONE (19:20)
[2021-12-23] MEDS ORDERED: ketorolac trometh inj. 60 MG/2 ML VIAL IM ONE (19:20)
[2021-12-23 19:36] VITALS: BP 135/87
== END 2021-12-23 19:38 | disposition home or self-care (01) ==
LOC: ER 18:54
DX: M54.50 Low back pain, unspecified (principal); G89.29 Other chronic pain; I10 Essential (primary) hypertension; Z59.00 Homelessness unspecified
CPT/HCPCS: 96372; 99284; J1885; J2360

== ENCOUNTER 2021-12-29 15:33 | Emergency (ER) | payer MEDICAID ==
[~2021-12-29] VITALS: Ht 193 cm; Wt 86.0 kg
[~2021-12-29 15:33] MED LIST changes: +NAPR-56 PO
[2021-12-29 15:40] VITALS: BP 135/92
[2021-12-29] MEDS ORDERED: ketorolac trometh inj. 60 MG/2 ML VIAL IM ONE (16:00)
[2021-12-29] MEDS ORDERED: orphenadrine citrate 60mg/2ml inj. IM ONE (16:00)
--- NOTE | 2021-12-29 16:31 | NUR ---
Pt given and understands d/c instructions. Ambulatory with a slow gait.
== END 2021-12-29 16:32 | disposition home or self-care (01) ==
LOC: ER 15:33
DX: M54.41 Lumbago with sciatica, right side (principal); G89.29 Other chronic pain; I10 Essential (primary) hypertension; F41.9 Anxiety disorder, unspecified; F31.9 Bipolar disorder, unspecified; F20.9 Schizophrenia, unspecified; Z86.69 Personal history of other diseases of the nervous system and sense organs; Z72.89 Other problems related to lifestyle; Z59.00 Homelessness unspecified; Z79.899 Other long term (current) drug therapy
CPT/HCPCS: 96372; 99284; J1885; J2360

== ENCOUNTER 2021-12-30 17:32 | Emergency (ER) | payer MEDICAID ==
[~2021-12-30] VITALS: Ht 188 cm; Wt 125.0 kg
[2021-12-30] MEDS ORDERED: cyclobenzaprine 10mg tablet PO ONE (17:55)
[2021-12-30 19:09] VITALS: BP 152/101
== END 2021-12-30 19:11 | disposition home or self-care (01) ==
LOC: ER 17:33
DX: M54.41 Lumbago with sciatica, right side (principal); G89.29 Other chronic pain; Z76.5 Malingerer [conscious simulation]; I10 Essential (primary) hypertension; F41.9 Anxiety disorder, unspecified; F31.9 Bipolar disorder, unspecified; F20.9 Schizophrenia, unspecified; Z72.89 Other problems related to lifestyle; Z59.00 Homelessness unspecified; Z79.899 Other long term (current) drug therapy
CPT/HCPCS: 99283

== ENCOUNTER 2022-01-27 15:29 | Emergency (ER) | payer MEDICAID ==
[~2022-01-27] VITALS: Ht 190.5 cm; Wt 109.0 kg
[2022-01-27 15:29] VITALS: BP 135/85
[~2022-01-27 15:29] MED LIST changes: -NAPR-56 PO
--- NOTE | 2022-01-27 15:45 | NUR ---
Patient reports sore directly above intergluteal cleft x 3 years; patient refuses to allow this RN to assess visually.
== END 2022-01-27 16:20 | disposition home or self-care (01) ==
LOC: ER 15:30
DX: L53.8 Other specified erythematous conditions (principal); M54.59 Other low back pain; M25.552 Pain in left hip; M25.551 Pain in right hip; I10 Essential (primary) hypertension; G89.29 Other chronic pain; M54.9 Dorsalgia, unspecified; F31.9 Bipolar disorder, unspecified; F20.9 Schizophrenia, unspecified
CPT/HCPCS: 99281

== ENCOUNTER 2022-05-11 19:25 | Emergency (ER) | payer MEDICAID ==
[~2022-05-11] VITALS: Ht 190.5 cm; Wt 123.6 kg
[2022-05-11 19:49] VITALS: BP 123/78
[2022-05-11] MEDS ORDERED: PENI250T2 PO (21:48)
[2022-05-11] MEDS ORDERED: naproxen 500mg tablet PO ONE (21:50)
--- NOTE | 2022-05-11 22:03 | NUR ---
po med given
== END 2022-05-11 22:07 | disposition home or self-care (01) ==
LOC: ER 19:25
DX: S02.5XXA Fracture of tooth (traumatic), initial encounter for closed fracture (principal); I10 Essential (primary) hypertension; G89.29 Other chronic pain; F41.9 Anxiety disorder, unspecified; F31.9 Bipolar disorder, unspecified; F20.9 Schizophrenia, unspecified; Z72.89 Other problems related to lifestyle; Z59.00 Homelessness unspecified; Z79.899 Other long term (current) drug therapy; X58.XXXA Exposure to other specified factors, initial encounter; Y93.89 Activity, other specified; Y92.89 Other specified places as the place of occurrence of the external cause; Y99.8 Other external cause status
CPT/HCPCS: 99283

== ENCOUNTER 2022-07-11 23:18 | Emergency (ER) | payer MEDICAID ==
[~2022-07-11] VITALS: Ht 373.4 cm; Wt 124.0 kg
[2022-07-11 23:28] VITALS: BP 132/88
[2022-07-12] MEDS ORDERED: mag hydrox/Alum hydrox/simeth 30ml oral suspension PO ONE (04:00)
[2022-07-12] MEDS ORDERED: divalproex sod 250mg ER (24-hour) tablet PO ONE (04:00)
[2022-07-12] MEDS ORDERED: LIDOcaine Viscous 15ml cup MM ONE (04:00)
[2022-07-12] MEDS ORDERED: topiramate 100mg tablet PO ONE (04:00)
[2022-07-12] MEDS ORDERED: ibuprofen tablet 400 MG TABLET PO ONE (04:00)
--- NOTE | 2022-07-12 05:50 | NUR ---
Pt arrived on unit at 0110. Pleasant and cooperative but fatigued. Dr. Alan here ordered some x1 medications. Pt sleeping at this time.
--- NOTE | 2022-07-12 06:40 | NUR ---
Patient sleeping on right side. No distress observed. Continue to monitor.
--- NOTE | 2022-07-12 08:45 | NUR ---
Patient eating breakfast. No distress observed. Continue to monitor.
== END 2022-07-12 09:17 | disposition home or self-care (01) ==
LOC: ER 23:18
DX: Z13.79 Encounter for other screening for genetic and chromosomal anomalies (principal); K04.7 Periapical abscess without sinus; K08.89 Other specified disorders of teeth and supporting structures; I10 Essential (primary) hypertension; F41.9 Anxiety disorder, unspecified; F31.9 Bipolar disorder, unspecified; F20.9 Schizophrenia, unspecified; Z86.69 Personal history of other diseases of the nervous system and sense organs; Z59.00 Homelessness unspecified; Z72.89 Other problems related to lifestyle; Z79.899 Other long term (current) drug therapy
CPT/HCPCS: 99284

== ENCOUNTER 2022-07-12 20:08 | Emergency (ER) | payer MEDICAID ==
[~2022-07-12] VITALS: Ht 190.5 cm; Wt 118.8 kg
[2022-07-12 21:05] LABS: BASOPHILS % (AUTO) 0.3 % (0-1); EOSINOPHILS # (AUTO) 0.3 X10'3 (0-0.9); EOSINOPHILS % (AUTO) 2.1 % (0-6); HEMATOCRIT 48.8 % (42.0-52.0); HEMOGLOBIN 17.2 g/dl (14.0-17.9); LYMPHOCYTES # (AUTO) 3.4 X10'3 (1.1-4.8); LYMPHOCYTES % (AUTO) 21.9 % (21-51); MEAN CORPUSCULAR HEMOGLOBIN 31.5 PG (27.0-31.0); MEAN CORPUSCULAR HGB CONC 35.3 g/dL (33.0-36.5); MEAN CORPUSCULAR VOLUME 89.2 FL (78-98); MEAN PLATELET VOLUME 8.1 FL (7.4-10.4); MONOCYTES # (AUTO) 1.5 X10'3 (0-0.9); MONOCYTES % (AUTO) 9.5 % (2-12); NEUTROPHILS # (AUTO) 10.2 X10'3 (1.8-7.7); NEUTROPHILS % (AUTO) 66.2 % (42-75); PLATELET COUNT 449 X10'3 (140-440); RED BLOOD COUNT 5.47 X10'6 (4.70-6.10); RED CELL DISTRIBUTION WIDTH 14.4 % (11.5-14.5); WHITE BLOOD COUNT 15.5 X10'3 (4.5-11.0)
[2022-07-12 21:13] LABS: ALANINE AMINOTRANSFERASE 65 U/L (12-78); ALBUMIN 4.6 G/DL (3.4-5.0); ALBUMIN/GLOBULIN RATIO 1.2 (1.1-1.5); ALKALINE PHOSPHATASE 75 IU/L (46-116); ANION GAP 16 (8-16); ASPARTATE AMINO TRANSFERASE 28 U/L (10-37); BILIRUBIN,TOTAL 0.7 MG/DL (0.1-1.0); BLOOD UREA NITROGEN 37 MG/DL (7-18); BUN/CREATININE RATIO 10.7 (5.4-32.0); CALCIUM 10.1 MG/DL (8.5-10.1); CHLORIDE 99 MMOL/L (99-107); CREATININE 3.46 MG/DL (0.60-1.10); GLUCOSE 114 MG/DL (70-104); SODIUM 136 MMOL/L (135-145); TOTAL CARBON DIOXIDE 20.8 MMOL/L (24-32); TOTAL PROTEIN 8.6 G/DL (6.4-8.2); eGFR 19 ML/MIN
[2022-07-12] MEDS ORDERED: normal saline 1000ML IV soln IV ONE (22:00)
[2022-07-12] MEDS ORDERED: CefTRIAXone 2gm/D5W 50ml BAG 50 ML IV ONE (22:00)
[2022-07-12 22:40] LABS: ETHANOL < 0.010 GM/DL (0.0-0.010)
[2022-07-12 23:42] LABS: URINE AMPHETAMINE SCREEN POSITIVE (Neg); URINE BARBITUATE SCREEN NEGATIVE (Neg); URINE BENZODIAZEPINES SCREEN NEGATIVE (Neg); URINE CANNABINOID SCREEN NEGATIVE (Neg); URINE COCAINE SCREEN NEGATIVE (Neg); URINE METHADONE SCREEN NEGATIVE (Neg); URINE OPIATE SCREEN NEGATIVE (Neg); URINE PHENCYCLIDINE SCREEN NEGATIVE (Neg)
[2022-07-12] MEDS ORDERED: normal saline 1000ML IV soln IVB ONE (23:50)
[2022-07-13 04:53] LABS: ALANINE AMINOTRANSFERASE 53 U/L (12-78); ALBUMIN 3.4 G/DL (3.4-5.0); ALKALINE PHOSPHATASE 59 IU/L (46-116); ANION GAP 11 (8-16); ASPARTATE AMINO TRANSFERASE 24 U/L (10-37); BILIRUBIN,TOTAL 0.4 MG/DL (0.1-1.0); BLOOD UREA NITROGEN 31 MG/DL (7-18); BUN/CREATININE RATIO 14.1 (5.4-32.0); CALCIUM 8.4 MG/DL (8.5-10.1); CHLORIDE 106 MMOL/L (99-107); GLUCOSE 96 MG/DL (70-104); POTASSIUM 3.7 MMOL/L (3.5-5.1); SODIUM 141 MMOL/L (135-145); TOTAL CARBON DIOXIDE 24.3 MMOL/L (24-32); TOTAL PROTEIN 6.7 G/DL (6.4-8.2); eGFR 33 ML/MIN
[2022-07-13] MEDS ORDERED: normal saline 1000ml 1,000 ML IV ONE (05:15)
[2022-07-13 06:06] VITALS: BP 140/82
== END 2022-07-13 06:08 | disposition home or self-care (01) ==
LOC: ER 20:12
DX: E86.0 Dehydration (principal); F10.20 Alcohol dependence, uncomplicated; F15.10 Other stimulant abuse, uncomplicated; K13.79 Other lesions of oral mucosa; R07.89 Other chest pain; R06.02 Shortness of breath; I10 Essential (primary) hypertension; G89.29 Other chronic pain; F41.9 Anxiety disorder, unspecified; F31.9 Bipolar disorder, unspecified; F20.9 Schizophrenia, unspecified; Z86.69 Personal history of other diseases of the nervous system and sense organs; Z72.89 Other problems related to lifestyle; Z59.00 Homelessness unspecified; Z79.899 Other long term (current) drug therapy
CPT/HCPCS: 36415; 71045; 80053; 80305; 80320; 83880; 84145; 84484; 85025; 93005; 96361; 96365; 99285; J0696; J7030

== ENCOUNTER 2022-07-13 20:52 | Emergency (ER) | payer MEDICAID | END 2022-07-13 23:10 | disposition left against medical advice (07) | LOC: ER 20:53 | DX: Z00.00 Encounter for general adult medical examination without abnormal findings (principal); Z53.21 Procedure and treatment not carried out due to patient leaving prior to being seen by health care provider ==

== ENCOUNTER 2022-07-14 10:04 | Emergency (ER) | payer MEDICAID ==
[~2022-07-14] VITALS: Ht 188 cm; Wt 113.6 kg
[2022-07-14 10:14] VITALS: BP 124/85
[2022-07-14 12:47] LABS: BASOPHILS % (AUTO) 0.2 % (0-1); EOSINOPHILS # (AUTO) 0.3 X10'3 (0-0.9); EOSINOPHILS % (AUTO) 2.1 % (0-6); HEMATOCRIT 44.2 % (42.0-52.0); HEMOGLOBIN 15.3 g/dl (14.0-17.9); LYMPHOCYTES # (AUTO) 2.5 X10'3 (1.1-4.8); LYMPHOCYTES % (AUTO) 18.2 % (21-51); MEAN CORPUSCULAR HEMOGLOBIN 30.9 PG (27.0-31.0); MEAN CORPUSCULAR HGB CONC 34.6 g/dL (33.0-36.5); MEAN CORPUSCULAR VOLUME 89.4 FL (78-98); MEAN PLATELET VOLUME 7.9 FL (7.4-10.4); MONOCYTES # (AUTO) 1.4 X10'3 (0-0.9); MONOCYTES % (AUTO) 10.5 % (2-12); NEUTROPHILS # (AUTO) 9.3 X10'3 (1.8-7.7); PLATELET COUNT 420 X10'3 (140-440); RED BLOOD COUNT 4.94 X10'6 (4.70-6.10); RED CELL DISTRIBUTION WIDTH 14.1 % (11.5-14.5); WHITE BLOOD COUNT 13.5 X10'3 (4.5-11.0)
[2022-07-14 13:01] LABS: ALANINE AMINOTRANSFERASE 80 U/L (12-78); ALBUMIN 4.1 G/DL (3.4-5.0); ALBUMIN/GLOBULIN RATIO 1.2 (1.1-1.5); ALKALINE PHOSPHATASE 67 IU/L (46-116); ANION GAP 15 (8-16); ASPARTATE AMINO TRANSFERASE 47 U/L (10-37); BILIRUBIN,TOTAL 0.6 MG/DL (0.1-1.0); BLOOD UREA NITROGEN 37 MG/DL (7-18); BUN/CREATININE RATIO 23.6 (5.4-32.0); CALCIUM 9.2 MG/DL (8.5-10.1); CHLORIDE 101 MMOL/L (99-107); CREATININE 1.57 MG/DL (0.60-1.10); GLUCOSE 98 MG/DL (70-104); POTASSIUM 4.7 MMOL/L (3.5-5.1); SODIUM 137 MMOL/L (135-145); TOTAL CARBON DIOXIDE 21.5 MMOL/L (24-32); TOTAL PROTEIN 7.6 G/DL (6.4-8.2); eGFR 48 ML/MIN
[2022-07-14 13:09] LABS: ETHANOL < 0.010 GM/DL (0.0-0.010)
--- NOTE | 2022-07-14 13:10 | NUR ---
PT REPORTS THAT HE HEARS VOICES THAT TELL HIM TO JUMP OFF THE BRIDGE. AWARE.
--- NOTE | 2022-07-14 13:18 | NUR ---
MD WAS TALKING WITH THE PATIENT AND THE PATIENT BECAME UPSET AND WANTED TO LEAVE. MD PRINTED DC INSTRUCTIONS AND HAD THE PT SIGN THE DC FORM. PT LEFT
== END 2022-07-14 13:36 | disposition home or self-care (01) ==
LOC: ER 10:07
DX: Z13.89 Encounter for screening for other disorder (principal); Z20.822 Contact with and (suspected) exposure to COVID-19; I12.9 Hypertensive chronic kidney disease with stage 1 through stage 4 chronic kidney disease, or unspecified chronic kidney disease; N18.9 Chronic kidney disease, unspecified; F15.90 Other stimulant use, unspecified, uncomplicated; G89.29 Other chronic pain; F41.9 Anxiety disorder, unspecified; F31.9 Bipolar disorder, unspecified; F20.9 Schizophrenia, unspecified; Z86.69 Personal history of other diseases of the nervous system and sense organs; Z72.89 Other problems related to lifestyle; Z59.00 Homelessness unspecified; Z79.899 Other long term (current) drug therapy; Z91.19 Patient's noncompliance with other medical treatment and regimen
CPT/HCPCS: 36415; 80053; 80320; 84443; 85025; 87811; 99283

== ENCOUNTER 2022-07-16 09:51 | Emergency (ER) | payer MEDICAID ==
[~2022-07-16] VITALS: Ht 190.5 cm; Wt 106.8 kg
[~2022-07-16 09:51] MED LIST changes: -CYCL-1 PO; -NAPR-1154 PO
[2022-07-16 10:31] VITALS: BP 111/82
== END 2022-07-16 14:58 | disposition left against medical advice (07) ==
LOC: ER 09:51
DX: R53.1 Weakness (principal); Z53.21 Procedure and treatment not carried out due to patient leaving prior to being seen by health care provider

== ENCOUNTER 2022-07-22 14:12 | Emergency (ER) | payer MEDICAID ==
[~2022-07-22] VITALS: Ht 190.5 cm; Wt 108.0 kg
[2022-07-22 14:37] VITALS: BP 121/76
[2022-07-22 16:05] LABS: BASOPHILS % (AUTO) 0.3 % (0-1); EOSINOPHILS # (AUTO) 0.4 X10'3 (0-0.9); EOSINOPHILS % (AUTO) 3.6 % (0-6); HEMATOCRIT 40.1 % (42.0-52.0); LYMPHOCYTES # (AUTO) 2.7 X10'3 (1.1-4.8); LYMPHOCYTES % (AUTO) 23.6 % (21-51); MEAN CORPUSCULAR HEMOGLOBIN 31.3 PG (27.0-31.0); MEAN CORPUSCULAR HGB CONC 34.9 g/dL (33.0-36.5); MEAN CORPUSCULAR VOLUME 89.9 FL (78-98); MEAN PLATELET VOLUME 7.8 FL (7.4-10.4); MONOCYTES # (AUTO) 0.9 X10'3 (0-0.9); MONOCYTES % (AUTO) 7.9 % (2-12); NEUTROPHILS # (AUTO) 7.5 X10'3 (1.8-7.7); NEUTROPHILS % (AUTO) 64.6 % (42-75); PLATELET COUNT 437 X10'3 (140-440); RED BLOOD COUNT 4.46 X10'6 (4.70-6.10); RED CELL DISTRIBUTION WIDTH 14.4 % (11.5-14.5); WHITE BLOOD COUNT 11.6 X10'3 (4.5-11.0)
--- NOTE | 2022-07-22 16:14 | NUR ---
PER LAB, AFTER LABS WERE DRAWN PT STATES THAT "I WILL COME BACK TOMORROW." AND PT LEFT THE LAB ROOM AND EREN LOYD
[2022-07-22 16:22] LABS: ALANINE AMINOTRANSFERASE 54 U/L (12-78); ALBUMIN 3.8 G/DL (3.4-5.0); ALBUMIN/GLOBULIN RATIO 1.2 (1.1-1.5); ALKALINE PHOSPHATASE 56 IU/L (46-116); ANION GAP 6 (8-16); ASPARTATE AMINO TRANSFERASE 39 U/L (10-37); BILIRUBIN,TOTAL 0.5 MG/DL (0.1-1.0); BLOOD UREA NITROGEN 20 MG/DL (7-18); BUN/CREATININE RATIO 15.6 (5.4-32.0); CALCIUM 9.2 MG/DL (8.5-10.1); CHLORIDE 108 MMOL/L (99-107); CREATININE 1.28 MG/DL (0.60-1.10); GLUCOSE 92 MG/DL (70-104); LIPASE 167 U/L (73-393); POTASSIUM 3.7 MMOL/L (3.5-5.1); SODIUM 143 MMOL/L (135-145); TOTAL CARBON DIOXIDE 28.9 MMOL/L (24-32); eGFR 61 ML/MIN
== END 2022-07-22 16:14 | disposition left against medical advice (07) ==
LOC: ER 14:15
DX: K92.1 Melena (principal); Z53.21 Procedure and treatment not carried out due to patient leaving prior to being seen by health care provider
CPT/HCPCS: 36415; 80053; 83690; 85025

== ENCOUNTER 2022-07-24 06:33 | Emergency (ER) | payer MEDICAID ==
[~2022-07-24] VITALS: Ht 190.5 cm; Wt 110.0 kg
[2022-07-24] MEDS ORDERED: ketorolac trometh. 30mg/ml inj. IV ONE (06:55)
[2022-07-24] MEDS ORDERED: acetaminophen 325mg tablet PO ONE (06:55)
[2022-07-24] MEDS ORDERED: normal saline 1000ml 1,000 ML IV ONE (06:55)
[2022-07-24 07:21] VITALS: BP 123/75
[2022-07-24 07:24] LABS: BASOPHILS % (AUTO) 0.1 % (0-1); EOSINOPHILS # (AUTO) 0.2 X10'3 (0-0.9); HEMATOCRIT 39.5 % (42.0-52.0); HEMOGLOBIN 13.7 g/dl (14.0-17.9); LYMPHOCYTES # (AUTO) 0.3 X10'3 (1.1-4.8); LYMPHOCYTES % (AUTO) 4.9 % (21-51); MEAN CORPUSCULAR HEMOGLOBIN 31.1 PG (27.0-31.0); MEAN CORPUSCULAR HGB CONC 34.7 g/dL (33.0-36.5); MEAN CORPUSCULAR VOLUME 89.8 FL (78-98); MEAN PLATELET VOLUME 7.8 FL (7.4-10.4); MONOCYTES # (AUTO) 0.5 X10'3 (0-0.9); MONOCYTES % (AUTO) 8.6 % (2-12); NEUTROPHILS # (AUTO) 4.8 X10'3 (1.8-7.7); NEUTROPHILS % (AUTO) 83.4 % (42-75); PLATELET COUNT 359 X10'3 (140-440); RED CELL DISTRIBUTION WIDTH 14.2 % (11.5-14.5); WHITE BLOOD COUNT 5.7 X10'3 (4.5-11.0)
[2022-07-24 07:39] LABS: ALANINE AMINOTRANSFERASE 55 U/L (12-78); ALBUMIN 3.6 G/DL (3.4-5.0); ALBUMIN/GLOBULIN RATIO 1.2 (1.1-1.5); ALKALINE PHOSPHATASE 51 IU/L (46-116); ANION GAP 11 (8-16); ASPARTATE AMINO TRANSFERASE 35 U/L (10-37); BILIRUBIN,TOTAL 0.4 MG/DL (0.1-1.0); BLOOD UREA NITROGEN 20 MG/DL (7-18); BUN/CREATININE RATIO 17.1 (5.4-32.0); CALCIUM 8.8 MG/DL (8.5-10.1); CHLORIDE 108 MMOL/L (99-107); CREATININE 1.17 MG/DL (0.60-1.10); GLUCOSE 90 MG/DL (70-104); LIPASE 110 U/L (73-393); POTASSIUM 3.4 MMOL/L (3.5-5.1); SODIUM 143 MMOL/L (135-145); TOTAL CARBON DIOXIDE 24.5 MMOL/L (24-32); TOTAL PROTEIN 6.7 G/DL (6.4-8.2); eGFR 68 ML/MIN
[2022-07-24 07:47] LABS: TOTAL CELLS COUNTED 100
[2022-07-24 07:48] LABS: PLATELET ESTIMATE NORMAL; POLYCHROMASIA FEW
[2022-07-24 08:13] LABS: CLARITY,URINE CLEAR (Clear); GLUCOSE, URINE NEGATIVE (Neg); KETONES,URINE 15 mg/dl (Neg); LEUKOCYTE ESTERASE ,URINE NEGATIVE (Neg); NITRITES, URINE NEGATIVE (Neg); OCCULT BLOOD,URINE NEGATIVE (Neg); PROTEIN,URINE NEGATIVE (Neg)
[2022-07-24 08:19] LABS: COLOR,URINE AMBER (Yellow); UA COLLECTION TYPE VOIDED
--- NOTE | 2022-07-24 08:35 | NUR ---
Patient stepped out of bed 8, requesting that IV be removed from is RAC. I discussed with patient the need to keep IV in place until all lab results are finalized, Patient agreed.
--- NOTE | 2022-07-24 08:45 | NUR ---
Patient came to door way again asking for IV to be removed. Dr. Sargent in room now to discuss care of patient. Dr. Sargent stated to me that patient can have IV removed for discharge. I agreed and removed IV.
== END 2022-07-24 09:26 | disposition home or self-care (01) ==
LOC: ER 06:34
DX: B34.9 Viral infection, unspecified (principal); Z20.822 Contact with and (suspected) exposure to COVID-19; M79.10 Myalgia, unspecified site; G89.29 Other chronic pain; M54.9 Dorsalgia, unspecified; F31.9 Bipolar disorder, unspecified; I10 Essential (primary) hypertension; F15.10 Other stimulant abuse, uncomplicated; Z56.0 Unemployment, unspecified; Z79.899 Other long term (current) drug therapy
CPT/HCPCS: 36415; 80053; 81003; 83605; 83690; 84145; 85007; 85025; 87040; 87635; 96361; 96374; 99284; C9803; J1885; J7030

== ENCOUNTER 2022-08-20 21:43 | Emergency (ER) | payer MEDICAID ==
[~2022-08-20] VITALS: Ht 190.5 cm; Wt 117.3 kg
[2022-08-20 22:18] VITALS: BP 119/79
== END 2022-08-21 03:07 | disposition left against medical advice (07) ==
LOC: ER 21:45
DX: M25.571 Pain in right ankle and joints of right foot (principal); M25.572 Pain in left ankle and joints of left foot; Z53.21 Procedure and treatment not carried out due to patient leaving prior to being seen by health care provider

== ENCOUNTER 2022-08-23 22:16 | Emergency (ER) | payer MEDICAID | END 2022-08-24 00:18 | disposition left against medical advice (07) | LOC: ER 22:17 | DX: M79.673 Pain in unspecified foot (principal); Z53.21 Procedure and treatment not carried out due to patient leaving prior to being seen by health care provider ==

== ENCOUNTER 2022-09-06 23:00 | Emergency (ER) | payer MEDICAID ==
[~2022-09-06] VITALS: Ht 193 cm; Wt 102.3 kg
[2022-09-06 23:06] VITALS: BP 118/85
[2022-09-07] MEDS ORDERED: traZODone 150mg tablet PO SCH (20:00)
== END 2022-09-07 01:51 | disposition home or self-care (01) ==
LOC: ER 23:00
DX: G47.00 Insomnia, unspecified (principal); I10 Essential (primary) hypertension; G89.29 Other chronic pain; F41.9 Anxiety disorder, unspecified; F31.9 Bipolar disorder, unspecified; F20.9 Schizophrenia, unspecified; F15.90 Other stimulant use, unspecified, uncomplicated; Z86.69 Personal history of other diseases of the nervous system and sense organs; Z72.89 Other problems related to lifestyle; Z59.00 Homelessness unspecified; Z79.899 Other long term (current) drug therapy
CPT/HCPCS: 99281

== ENCOUNTER 2022-09-19 21:19 | Emergency (ER) | payer MEDICAID ==
[~2022-09-19] VITALS: Ht 193 cm; Wt 114.0 kg
[2022-09-19 21:37] VITALS: BP 170/98
== END 2022-09-20 02:38 | disposition left against medical advice (07) ==
LOC: ER 21:19
DX: F29 Unspecified psychosis not due to a substance or known physiological condition (principal); Z53.21 Procedure and treatment not carried out due to patient leaving prior to being seen by health care provider

== ENCOUNTER 2022-09-20 09:21 | Emergency (ER) | payer MEDICAID ==
[~2022-09-20] VITALS: Ht 190.5 cm; Wt 114.8 kg
[2022-09-20 09:25] VITALS: BP 135/85
== END 2022-09-20 09:53 | disposition left against medical advice (07) ==
LOC: ER 09:22
DX: Z00.8 Encounter for other general examination (principal); Z53.21 Procedure and treatment not carried out due to patient leaving prior to being seen by health care provider

== ENCOUNTER 2022-09-21 17:44 | Emergency (ER) | payer MEDICAID | END 2022-09-21 19:35 | disposition left against medical advice (07) | LOC: ER 17:44 | DX: Z00.8 Encounter for other general examination (principal); Z53.21 Procedure and treatment not carried out due to patient leaving prior to being seen by health care provider ==

== ENCOUNTER 2022-09-30 18:47 | Emergency (ER) | payer MEDICAID ==
[~2022-09-30] VITALS: Ht 190.5 cm; Wt 106.8 kg
[2022-09-30 19:05] VITALS: BP 138/89
== END 2022-09-30 23:38 | disposition left against medical advice (07) ==
LOC: ER 18:47
DX: F29 Unspecified psychosis not due to a substance or known physiological condition (principal); Z53.21 Procedure and treatment not carried out due to patient leaving prior to being seen by health care provider

== ENCOUNTER 2022-12-26 20:13 | Emergency (ER) | payer MEDICAID ==
[~2022-12-26] VITALS: Ht 191.8 cm; Wt 107.5 kg
[2022-12-26] MEDS ORDERED: TOPI50TA24 PO (20:38)
[2022-12-26] MEDS ORDERED: GABA300C PO (20:39)
[2022-12-26 20:43] LABS: BASOPHILS # (AUTO) 0.1 X10'3 (0-0.2); BASOPHILS % (AUTO) 0.7 % (0-1); EOSINOPHILS # (AUTO) 0.4 X10'3 (0-0.9); EOSINOPHILS % (AUTO) 3.2 % (0-6); HEMATOCRIT 44.4 % (42.0-52.0); HEMOGLOBIN 15.3 g/dl (14.0-17.9); LYMPHOCYTES # (AUTO) 3.3 X10'3 (1.1-4.8); LYMPHOCYTES % (AUTO) 24.4 % (21-51); MEAN CORPUSCULAR HGB CONC 34.4 g/dL (33.0-36.5); MEAN CORPUSCULAR VOLUME 87.4 FL (78-98); MEAN PLATELET VOLUME 7.8 FL (7.4-10.4); MONOCYTES # (AUTO) 0.8 X10'3 (0-0.9); MONOCYTES % (AUTO) 5.8 % (2-12); NEUTROPHILS # (AUTO) 8.8 X10'3 (1.8-7.7); NEUTROPHILS % (AUTO) 65.9 % (42-75); PLATELET COUNT 519 X10'3 (140-440); RED BLOOD COUNT 5.08 X10'6 (4.70-6.10); RED CELL DISTRIBUTION WIDTH 14.4 % (11.5-14.5); WHITE BLOOD COUNT 13.4 X10'3 (4.5-11.0)
[2022-12-26 20:57] LABS: ALANINE AMINOTRANSFERASE 65 U/L (12-78); ALBUMIN 4.1 G/DL (3.4-5.0); ALBUMIN/GLOBULIN RATIO 1.4 (1.1-1.5); ALKALINE PHOSPHATASE 84 IU/L (46-116); ANION GAP 9 (8-16); ASPARTATE AMINO TRANSFERASE 46 U/L (10-37); BILIRUBIN,TOTAL 0.4 MG/DL (0.1-1.0); BLOOD UREA NITROGEN 18 MG/DL (7-18); BUN/CREATININE RATIO 18.6 (5.4-32.0); CALCIUM 9.2 MG/DL (8.5-10.1); CHLORIDE 106 MMOL/L (99-107); CREATININE 0.97 MG/DL (0.60-1.10); ETHANOL < 0.010 GM/DL (0.0-0.010); GLUCOSE 111 MG/DL (70-104); POTASSIUM 3.9 MMOL/L (3.5-5.1); SODIUM 140 MMOL/L (135-145); TOTAL CARBON DIOXIDE 25.4 MMOL/L (24-32); TOTAL PROTEIN 7.1 G/DL (6.4-8.2); eGFR 84 ML/MIN
--- NOTE | 2022-12-26 22:08 | NUR ---
The patient moved to bed 25 from the main ER. He was very cooperative. Given a meal and fluids. He is aware that w urine sample is needed.
--- NOTE | 2022-12-26 23:41 | NUR ---
The patient appears to be sleeping.
--- NOTE | 2022-12-27 01:07 | NUR ---
The patient appears to be sleeping
--- NOTE | 2022-12-27 02:54 | NUR ---
The patient appears to be sleeping
[2022-12-27 05:37] LABS: URINE AMPHETAMINE SCREEN POSITIVE (Neg); URINE BARBITUATE SCREEN NEGATIVE (Neg); URINE BENZODIAZEPINES SCREEN NEGATIVE (Neg); URINE CANNABINOID SCREEN POSITIVE (Neg); URINE COCAINE SCREEN NEGATIVE (Neg); URINE METHADONE SCREEN NEGATIVE (Neg); URINE OPIATE SCREEN NEGATIVE (Neg); URINE PHENCYCLIDINE SCREEN NEGATIVE (Neg)
--- NOTE | 2022-12-27 05:40 | NUR ---
The patient appeared to have slept well. He gave a urine sample
--- NOTE | 2022-12-27 05:44 | NUR ---
PACKET SENT TO [facility]
[2022-12-27 06:00] VITALS: BP 101/82
--- NOTE | 2022-12-27 06:40 | NUR ---
Patient sleeping on his right side. No distress observed. Continue to monitor.
[2022-12-27] MEDS ORDERED: risperiDONE 0.5mg tablet PO SCH (08:00)
[2022-12-27] MEDS ORDERED: topiramate 25mg tablet PO SCH (08:00)
[2022-12-27] MEDS ORDERED: gabapentin 300mg capsule PO SCH (08:00)
--- NOTE | 2022-12-27 08:20 | NUR ---
Patient eating breakfast. No distress observed. Continue to monitor.
--- NOTE | 2022-12-27 08:32 | NUR ---
Patient had a small amount of emesis in the BR. Continue to monitor.
--- NOTE | 2022-12-27 09:02 | NUR ---
Patient took his medication and stated he didn't need anything for nausea. No distress observed. Continue to monitor.
== END 2022-12-27 11:25 | disposition home or self-care (01) ==
LOC: ER 20:14
DX: R45.851 Suicidal ideations (principal); Z20.822 Contact with and (suspected) exposure to COVID-19; I10 Essential (primary) hypertension; G89.29 Other chronic pain; M54.50 Low back pain, unspecified; F17.200 Nicotine dependence, unspecified, uncomplicated; F15.20 Other stimulant dependence, uncomplicated; Z59.00 Homelessness unspecified
CPT/HCPCS: 36415; 80053; 80305; 80320; 85025; 87811; 99285

== ENCOUNTER 2023-01-04 17:29 | Emergency (ER) | payer MEDICAID ==
[~2023-01-04] VITALS: Ht 177.8 cm; Wt 77.3 kg
[~2023-01-04 17:29] MED LIST changes: -DIVA500T9 PO; +GABA300C PO; -TOPI50TA PO; +TOPI50TA24 PO
[2023-01-04 17:33] VITALS: BP 135/87
== END 2023-01-04 18:30 | disposition home or self-care (01) ==
LOC: ER 17:30
DX: F10.20 Alcohol dependence, uncomplicated (principal); R22.33 Localized swelling, mass and lump, upper limb, bilateral; I10 Essential (primary) hypertension; G89.29 Other chronic pain; F41.9 Anxiety disorder, unspecified; F31.9 Bipolar disorder, unspecified; F20.9 Schizophrenia, unspecified; F15.90 Other stimulant use, unspecified, uncomplicated; Z72.89 Other problems related to lifestyle; Z59.00 Homelessness unspecified; Z79.899 Other long term (current) drug therapy; Y90.9 Presence of alcohol in blood, level not specified
CPT/HCPCS: 99281

== ENCOUNTER 2023-01-13 13:22 | Emergency (ER) | payer MEDICAID ==
[~2023-01-13] VITALS: Ht 194.3 cm; Wt 108.0 kg
[2023-01-13 13:30] VITALS: BP 123/92
[2023-01-13] MEDS ORDERED: dexamethasone sod phosphate 10mg/ml inj PO STA (16:12)
[2023-01-13] MEDS ORDERED: amox tr/potassium clavulanate 875/125mg TAB PO ONE (16:15)
[2023-01-13] MEDS ORDERED: sulfamethoxazole/trimethoprim DS (800/160mg) tablet PO ONE (16:15)
[2023-01-13] MEDS ORDERED: albuterol 2.5 MG/3 ML nebule NEB ONE (16:15)
[2023-01-13 16:52] LABS: BASOPHILS % (AUTO) 0.3 % (0-1); EOSINOPHILS # (AUTO) 0.3 X10'3 (0-0.9); EOSINOPHILS % (AUTO) 3.5 % (0-6); HEMATOCRIT 45.4 % (42.0-52.0); HEMOGLOBIN 15.1 g/dl (14.0-17.9); LYMPHOCYTES # (AUTO) 2.1 X10'3 (1.1-4.8); MEAN CORPUSCULAR HEMOGLOBIN 29.4 PG (27.0-31.0); MEAN CORPUSCULAR HGB CONC 33.2 g/dL (33.0-36.5); MEAN CORPUSCULAR VOLUME 88.5 FL (78-98); MONOCYTES # (AUTO) 0.5 X10'3 (0-0.9); MONOCYTES % (AUTO) 6.6 % (2-12); NEUTROPHILS % (AUTO) 63.6 % (42-75); PLATELET COUNT 494 X10'3 (140-440); RED BLOOD COUNT 5.13 X10'6 (4.70-6.10); RED CELL DISTRIBUTION WIDTH 14.5 % (11.5-14.5); WHITE BLOOD COUNT 7.9 X10'3 (4.5-11.0)
[2023-01-13 17:05] LABS: ALANINE AMINOTRANSFERASE 39 U/L (12-78); ALBUMIN/GLOBULIN RATIO 1.3 (1.1-1.5); ALKALINE PHOSPHATASE 95 IU/L (46-116); ANION GAP 12 (8-16); ASPARTATE AMINO TRANSFERASE 39 U/L (10-37); BILIRUBIN,TOTAL 0.6 MG/DL (0.1-1.0); BLOOD UREA NITROGEN 19 MG/DL (7-18); BUN/CREATININE RATIO 21.6 (5.4-32.0); CALCIUM 9.4 MG/DL (8.5-10.1); CHLORIDE 106 MMOL/L (99-107); CREATININE 0.88 MG/DL (0.60-1.10); GLUCOSE 90 MG/DL (70-104); POTASSIUM 3.7 MMOL/L (3.5-5.1); SODIUM 142 MMOL/L (135-145); TOTAL PROTEIN 7.1 G/DL (6.4-8.2); eGFR > 90 ML/MIN
[2023-01-13] MEDS ORDERED: AMOX-117 PO (17:09)
[2023-01-13] MEDS ORDERED: SULF1TAB49 PO (17:09)
[2023-01-13] MEDS ORDERED: DIVA500T39 PO (17:20)
== END 2023-01-13 17:33 | disposition home or self-care (01) ==
LOC: ER 13:22
DX: L97.219 Non-pressure chronic ulcer of right calf with unspecified severity (principal); K05.10 Chronic gingivitis, plaque induced; M54.50 Low back pain, unspecified; R06.02 Shortness of breath; I10 Essential (primary) hypertension; G89.29 Other chronic pain; F41.9 Anxiety disorder, unspecified; F31.9 Bipolar disorder, unspecified; F20.9 Schizophrenia, unspecified; F17.200 Nicotine dependence, unspecified, uncomplicated; F15.90 Other stimulant use, unspecified, uncomplicated; Z72.89 Other problems related to lifestyle; Z59.00 Homelessness unspecified; Z79.899 Other long term (current) drug therapy
CPT/HCPCS: 36415; 71045; 80053; 85025; 94640; 99284; A6222; J1100; L3260; 94760; A6449

== ENCOUNTER 2023-02-02 18:27 | Emergency (ER) | payer MEDICAID ==
[~2023-02-02] VITALS: Ht 190.5 cm; Wt 90.9 kg
[~2023-02-02 18:27] MED LIST changes: +DIVA500T39 PO; +TOPI-253 PO; -TOPI50TA24 PO
[2023-02-02 21:17] VITALS: BP 141/97
[2023-02-02] MEDS ORDERED: ibuprofen 200mg tablet PO ONE (22:50)
[2023-02-02] MEDS ORDERED: dexamethasone sod phosphate 10mg/ml inj PO STA (22:52)
[2023-02-02] MEDS ORDERED: albuterol 2.5 MG/3 ML nebule NEB ONE (23:00)
== END 2023-02-02 23:43 | disposition home or self-care (01) ==
LOC: ER 18:28
DX: T69.8XXA Other specified effects of reduced temperature, initial encounter (principal); J40 Bronchitis, not specified as acute or chronic; L84 Corns and callosities
CPT/HCPCS: 71045; 94640; 99283; J1100; 94760

== ENCOUNTER 2023-02-15 13:02 | Emergency (ER) | payer MEDICAID ==
[~2023-02-15] VITALS: Ht 193 cm; Wt 109.0 kg
[2023-02-15] MEDS ORDERED: ALBU6.7H14 INH (14:44)
== END 2023-02-15 15:20 | disposition home or self-care (01) ==
LOC: ER 13:03
DX: R06.02 Shortness of breath (principal); I10 Essential (primary) hypertension; G89.29 Other chronic pain; F41.9 Anxiety disorder, unspecified; F20.9 Schizophrenia, unspecified; F31.9 Bipolar disorder, unspecified; F15.90 Other stimulant use, unspecified, uncomplicated; Z59.00 Homelessness unspecified; Z79.899 Other long term (current) drug therapy
CPT/HCPCS: 71046; 99283

== ENCOUNTER 2023-02-16 02:01 | Emergency (ER) | payer MEDICAID ==
[~2023-02-16] VITALS: Ht 193 cm; Wt 113.6 kg
[~2023-02-16 02:01] MED LIST changes: +ALBU6.7H14 INH
[2023-02-16 02:30] VITALS: BP 101/66
== END 2023-02-16 05:45 | disposition left against medical advice (07) ==
LOC: ER 02:02
DX: M25.511 Pain in right shoulder (principal); Z53.21 Procedure and treatment not carried out due to patient leaving prior to being seen by health care provider
CPT/HCPCS: 99281

== ENCOUNTER 2023-05-07 14:22 | Emergency (ER) | payer MEDICAID ==
[~2023-05-07] VITALS: Ht 190.5 cm; Wt 85.9 kg
[~2023-05-07 14:22] MED LIST changes: -ALBU6.7H14 INH; -DIVA500T39 PO; +DIVA500T9 PO; -GABA300C PO; +HYDR-3686 PO; +IBUP-1986 PO; +METH35.42 TOP; +NICO-687 TD; +NICO-907 BC; -RISP3TAB11 PO; +RISP3TAB63 PO
[2023-05-07 14:28] VITALS: BP 151/91
[2023-05-08] MEDS ORDERED: RISP3TAB63 PO (07:26)
[2023-05-08] MEDS ORDERED: DIVA-76 PO (07:26)
[2023-05-08] MEDS ORDERED: TOPI-253 PO (07:26)
[2023-05-08] MEDS ORDERED: HYDR-3686 PO (07:26)
== END 2023-05-07 14:35 | disposition home or self-care (01) ==
LOC: ER 14:23
DX: F19.10 Other psychoactive substance abuse, uncomplicated (principal); I10 Essential (primary) hypertension; G89.29 Other chronic pain; M54.9 Dorsalgia, unspecified; F41.9 Anxiety disorder, unspecified; F15.10 Other stimulant abuse, uncomplicated; Z59.00 Homelessness unspecified; Z56.0 Unemployment, unspecified; Z88.8 Allergy status to other drugs, medicaments and biological substances; Z79.899 Other long term (current) drug therapy
CPT/HCPCS: 99281

== ENCOUNTER 2023-06-14 09:27 | Emergency (ER) | payer MEDICAID ==
[~2023-06-14] VITALS: Ht 190.5 cm; Wt 100.0 kg
[~2023-06-14 09:27] MED LIST changes: +ALBU8HFA PO; +NAPR-56 PO
[2023-06-14 09:54] VITALS: BP 97/78; PULSE 97; RESP 18; O2SAT 97
[2023-06-14] MEDS ORDERED: normal saline 1000ML IV soln IVB ONE ×2 (13:05)
[2023-07-03] MEDS ORDERED: TOPI-253 PO (17:39)
[2023-07-03] MEDS ORDERED: RISP3TAB63 PO (17:39)
== END 2023-06-14 14:15 | disposition home or self-care (01) ==
LOC: ER 09:28
DX: E86.0 Dehydration (principal); G35 Multiple sclerosis; I10 Essential (primary) hypertension; G89.29 Other chronic pain; F15.90 Other stimulant use, unspecified, uncomplicated; Z56.0 Unemployment, unspecified; Z59.00 Homelessness unspecified; Z88.8 Allergy status to other drugs, medicaments and biological substances; Z79.899 Other long term (current) drug therapy
CPT/HCPCS: 96360; 99284; J7030

== ENCOUNTER 2023-07-03 13:40 | Emergency (ER) | payer MEDICAID ==
[~2023-07-03] VITALS: Ht 193 cm; Wt 105.0 kg
[~2023-07-03 13:40] MED LIST changes: -NAPR-56 PO
[2023-07-03 15:36] VITALS: BP 101/68; PULSE 84; RESP 16; TEMP 98.5; O2SAT 97
[2023-07-03] MEDS ORDERED: DIVA500T9 PO (17:39)
[2023-07-03] MEDS ORDERED: TOPI-253 PO ×2 (17:39)
[2023-07-03] MEDS ORDERED: RISP3TAB63 PO ×2 (17:39)
[2023-07-26] MEDS ORDERED: AMOX500C2 PO ×2 (06:02)
== END 2023-07-03 17:54 | disposition home or self-care (01) ==
LOC: ER 13:41
DX: Z76.0 Encounter for issue of repeat prescription (principal); Z20.822 Contact with and (suspected) exposure to COVID-19; G35 Multiple sclerosis; I10 Essential (primary) hypertension; G89.29 Other chronic pain; F17.200 Nicotine dependence, unspecified, uncomplicated; F15.90 Other stimulant use, unspecified, uncomplicated; Z72.89 Other problems related to lifestyle; Z59.00 Homelessness unspecified; Z56.0 Unemployment, unspecified; Z88.8 Allergy status to other drugs, medicaments and biological substances; Z79.899 Other long term (current) drug therapy
CPT/HCPCS: 36415; 87811; 99283

== ENCOUNTER 2023-07-03 20:34 | Emergency (ER) | payer MEDICAID ==
[~2023-07-03] VITALS: Ht 193 cm; Wt 77.3 kg
[2023-07-03 23:05] VITALS: BP 184/163; PULSE 108; RESP 16; O2SAT 98
--- NOTE | 2023-07-03 23:09 | NUR ---
After telling patient to await a room in the lobby patient became hostile with triage nurse demanding to be on 5150. Triage nurse explained to patient that a room would be worked out for him and that it was out of scope to write "5150", patient then got loud stating "Oh because you think i am crazy okay". Triage nurse attempted to descelate situation, patient eventually took his seat in the lobby. Security present.
== END 2023-07-04 02:01 | disposition left against medical advice (07) ==
LOC: ER 20:35
DX: R44.0 Auditory hallucinations (principal); Z53.21 Procedure and treatment not carried out due to patient leaving prior to being seen by health care provider
CPT/HCPCS: 99281

== ENCOUNTER 2023-07-25 12:49 | Emergency (ER) | payer MEDICAID ==
[~2023-07-25 12:49] MED LIST changes: -ALBU8HFA PO
[2023-07-26] MEDS ORDERED: AMOX500C2 PO (06:02)
== END 2023-07-25 13:55 | disposition left against medical advice (07) ==
LOC: ER 12:50
DX: K04.7 Periapical abscess without sinus (principal); Z53.21 Procedure and treatment not carried out due to patient leaving prior to being seen by health care provider

== ENCOUNTER 2023-07-26 04:42 | Emergency (ER) | payer MEDICAID ==
[~2023-07-26] VITALS: Ht 190.5 cm; Wt 82.6 kg
[2023-07-26 04:46] VITALS: TEMP 97.6
[2023-07-26 05:30] VITALS: BP 133/88; PULSE 76; RESP 18; O2SAT 98
[2023-07-26] MEDS ORDERED: amoxicillin 250mg capsule PO ONE (05:35)
[2023-07-26] MEDS ORDERED: ondansetron 4mg rapidly disintigrating tab PO ONE (05:35)
[2023-07-26] MEDS ORDERED: hydrOXYzine 25 MG tablet PO ONE (05:35)
[2023-07-26] MEDS ORDERED: acetaminophen 325mg tablet PO ONE (05:35)
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
[2023-07-26] MEDS ORDERED: AMOX500C2 PO (06:02)
== END 2023-07-26 06:28 | disposition home or self-care (01) ==
LOC: ER 04:43
DX: K08.89 Other specified disorders of teeth and supporting structures (principal); H92.01 Otalgia, right ear; I10 Essential (primary) hypertension; G89.29 Other chronic pain; F41.9 Anxiety disorder, unspecified; F31.9 Bipolar disorder, unspecified; F20.9 Schizophrenia, unspecified; F15.90 Other stimulant use, unspecified, uncomplicated; Z72.89 Other problems related to lifestyle; Z59.00 Homelessness unspecified; Z56.0 Unemployment, unspecified; Z88.8 Allergy status to other drugs, medicaments and biological substances; Z79.899 Other long term (current) drug therapy; Y04.8XXA Assault by other bodily force, initial encounter; Y93.89 Activity, other specified; Y92.89 Other specified places as the place of occurrence of the external cause; Y99.8 Other external cause status
CPT/HCPCS: 70450; 70486; 99284; Q0177

== ENCOUNTER 2023-07-26 16:23 | Emergency (ER) | payer MEDICAID ==
[~2023-07-26 16:23] MED LIST changes: +AMOX500C2 PO
== END 2023-07-26 18:15 | disposition left against medical advice (07) ==
LOC: ER 16:24
DX: Z00.8 Encounter for other general examination (principal); Z53.21 Procedure and treatment not carried out due to patient leaving prior to being seen by health care provider

== ENCOUNTER 2023-07-26 20:41 | Emergency (ER) | payer MEDICAID ==
[~2023-07-26] VITALS: Ht 193 cm; Wt 97.3 kg
[2023-07-26 20:49] VITALS: BP 117/84; PULSE 80; RESP 16; TEMP 98.3; O2SAT 98
[2023-07-26 22:22] LABS: BASOPHILS # (AUTO) 0.1 X10'3 (0-0.2); EOSINOPHILS # (AUTO) 0.4 X10'3 (0-0.9); MEAN CORPUSCULAR VOLUME 88.7 FL (78-98); MONOCYTES # (AUTO) 1.9 X10'3 (0-0.9)
[2023-07-26 22:23] LABS: BASOPHILS % (AUTO) 0.6 % (0-1); EOSINOPHILS % (AUTO) 2.6 % (0-6); HEMATOCRIT 44.4 % (42.0-52.0); HEMOGLOBIN 15.1 g/dl (14.0-17.9); LYMPHOCYTES # (AUTO) 3.7 X10'3 (1.1-4.8); LYMPHOCYTES % (AUTO) 25.3 % (21-51); MEAN CORPUSCULAR HEMOGLOBIN 30.1 PG (27.0-31.0); MEAN PLATELET VOLUME 7.2 FL (7.4-10.4); MONOCYTES % (AUTO) 13.1 % (2-12); NEUTROPHILS # (AUTO) 8.5 X10'3 (1.8-7.7); NEUTROPHILS % (AUTO) 58.4 % (42-75); PLATELET COUNT 641 X10'3 (140-440); RED CELL DISTRIBUTION WIDTH 14.8 % (11.5-14.5); WHITE BLOOD COUNT 14.5 X10'3 (4.5-11.0)
[2023-07-26 22:36] LABS: ALANINE AMINOTRANSFERASE 21 U/L (12-78); ALBUMIN 3.6 G/DL (3.4-5.0); ALBUMIN/GLOBULIN RATIO 1.1 (1.1-1.5); ALKALINE PHOSPHATASE 63 IU/L (46-116); ANION GAP 7 (8-16); ASPARTATE AMINO TRANSFERASE 17 U/L (10-37); BILIRUBIN,TOTAL 0.5 MG/DL (0.1-1.0); BLOOD UREA NITROGEN 40 MG/DL (7-18); CALCIUM 9.1 MG/DL (8.5-10.1); CHLORIDE 103 MMOL/L (99-107); CREATININE 1.54 MG/DL (0.60-1.10); ETHANOL < 10 MG/DL (<10); GLUCOSE 125 MG/DL (70-104); SODIUM 140 MMOL/L (135-145); TOTAL CARBON DIOXIDE 30.4 MMOL/L (24-32); TOTAL PROTEIN 6.9 G/DL (6.4-8.2); eCRCL 74 ML/MIN; eGFR 49 ML/MIN
== END 2023-07-27 00:12 | disposition left against medical advice (07) ==
LOC: ER 20:42
DX: R45.851 Suicidal ideations (principal); Z20.822 Contact with and (suspected) exposure to COVID-19
CPT/HCPCS: 80053; 80320; 85025; 87811; 99283

== ENCOUNTER 2023-07-27 22:20 | Emergency (ER) | payer MEDICAID | END 2023-07-27 23:07 | disposition left against medical advice (07) | LOC: ER 22:20 | DX: Z00.8 Encounter for other general examination (principal); Z53.21 Procedure and treatment not carried out due to patient leaving prior to being seen by health care provider ==

== ENCOUNTER 2023-08-05 11:30 | Emergency (ER) | payer MEDICAID ==
[~2023-08-05] VITALS: Ht 190.5 cm; Wt 106.4 kg
[2023-08-05 11:40] VITALS: BP 99/69; PULSE 90; RESP 16; TEMP 98.1; O2SAT 97
[2023-08-05] MEDS ORDERED: LIDOcaine 1% W/epiNEPHrine 1:100,000 20ml vial SQ ONE (14:35)
[2023-08-05] MEDS ORDERED: DOXY-356 PO (14:51)
[2023-08-05] MEDS ORDERED: CEPH250T PO (14:51)
== END 2023-08-05 15:07 | disposition home or self-care (01) ==
LOC: ER 11:31
DX: L02.416 Cutaneous abscess of left lower limb (principal); I10 Essential (primary) hypertension; G89.29 Other chronic pain; F41.9 Anxiety disorder, unspecified; F31.9 Bipolar disorder, unspecified; F20.9 Schizophrenia, unspecified; F17.200 Nicotine dependence, unspecified, uncomplicated; F15.90 Other stimulant use, unspecified, uncomplicated; Z72.89 Other problems related to lifestyle; Z59.00 Homelessness unspecified; Z56.0 Unemployment, unspecified; Z88.8 Allergy status to other drugs, medicaments and biological substances; Z79.899 Other long term (current) drug therapy
CPT/HCPCS: 10060; 99283; J7030; A6449

== ENCOUNTER 2023-08-11 16:00 | Emergency (ER) | payer MEDICAID ==
[~2023-08-11] VITALS: Ht 188 cm; Wt 90.0 kg
[~2023-08-11 16:00] MED LIST changes: +CEPH250T PO; +DOXY-356 PO
[2023-08-11 17:08] LABS: BASOPHILS # (AUTO) 0.1 X10'3 (0-0.2); BASOPHILS % (AUTO) 0.5 % (0-1); EOSINOPHILS # (AUTO) 0.3 X10'3 (0-0.9); MONOCYTES # (AUTO) 1.4 X10'3 (0-0.9); MONOCYTES % (AUTO) 10.1 % (2-12)
[2023-08-11 17:09] LABS: EOSINOPHILS % (AUTO) 2.2 % (0-6); HEMATOCRIT 47.9 % (42.0-52.0); HEMOGLOBIN 16.5 g/dl (14.0-17.9); LYMPHOCYTES # (AUTO) 3.8 X10'3 (1.1-4.8); MEAN CORPUSCULAR HEMOGLOBIN 30.7 PG (27.0-31.0); MEAN CORPUSCULAR HGB CONC 34.5 g/dL (33.0-36.5); MEAN PLATELET VOLUME 7.7 FL (7.4-10.4); NEUTROPHILS # (AUTO) 8.5 X10'3 (1.8-7.7); NEUTROPHILS % (AUTO) 60.2 % (42-75); PLATELET COUNT 868 X10'3 (140-440); RED BLOOD COUNT 5.39 X10'6 (4.70-6.10); RED CELL DISTRIBUTION WIDTH 14.9 % (11.5-14.5); WHITE BLOOD COUNT 14.1 X10'3 (4.5-11.0)
[2023-08-11 17:22] LABS: ALANINE AMINOTRANSFERASE 28 U/L (12-78); ALBUMIN 4.1 G/DL (3.4-5.0); ALBUMIN/GLOBULIN RATIO 1.1 (1.1-1.5); ALKALINE PHOSPHATASE 74 IU/L (46-116); ANION GAP 15 (8-16); ASPARTATE AMINO TRANSFERASE 26 U/L (10-37); BILIRUBIN,TOTAL 0.9 MG/DL (0.1-1.0); BLOOD UREA NITROGEN 50 MG/DL (7-18); BUN/CREATININE RATIO 19.9 (10.0-20.0); CALCIUM 10.7 MG/DL (8.5-10.1); CHLORIDE 97 MMOL/L (99-107); CREATININE 2.51 MG/DL (0.60-1.10); GLUCOSE 88 MG/DL (70-104); POTASSIUM 3.9 MMOL/L (3.5-5.1); SODIUM 134 MMOL/L (135-145); TOTAL CARBON DIOXIDE 21.9 MMOL/L (24-32); TOTAL PROTEIN 7.9 G/DL (6.4-8.2); eCRCL 43 ML/MIN; eGFR 28 ML/MIN
[2023-08-11 17:30] LABS: ETHANOL < 10 MG/DL (<10)
[2023-08-11] MEDS ORDERED: ringers solution, lacted 1,000 ML IV ONE ×2 (17:55→19:20)
[2023-08-11] MEDS ORDERED: OLANZapine 5mg rapidly disint. tablet PO ONE (18:30)
[2023-08-11] MEDS ORDERED: LORazepam 1 MG tablet PO ONE (18:30)
[2023-08-11] MEDS ORDERED: diphenhydrAMINE 25mg capsule PO ONE (18:30)
[2023-08-11 20:48] LABS: CKMB RELATIVE INDEX 0.6 RATIO (0-2.5); CREATINE KINASE 443 U/L (39-308); CREATINE KINASE MB 2.8 ng/ml (0.3-3.6)
--- NOTE | 2023-08-11 21:39 | NUR ---
PT IS EXTREMELY PARANOID AND HAVING VISUAL/AUDITORY HALUCINATIONS. PT MOVED FROM ROOM 18 TO ER ROOM 14 D/T BEING UNCOOPERATIVE. PT WAS VERBALLY COMBATIVE WITH SECURITY AND TECH AT BEDSIDE. PT AGREED TO TAKE MEDICATIONS ORDERED BY ER MD AND CHANGE INTO GREEN SCRUBS. PT GIVEN SNACKS REQUESTED. PT IS NOW RESTING IN THE BED WITH THE LIGHTS OFF AND A BLANKET. PT STATES NO FURTHER NEEDS AT THIS TIME.
[2023-08-12] MEDS ORDERED: ringers solution, lacted 1,000 ML IV ONE (00:15)
[2023-08-12 04:40] LABS: BILIRUBIN,URINE NEGATIVE (Neg); CLARITY,URINE CLEAR (Clear); COLOR,URINE YELLOW (Yellow); GLUCOSE, URINE NEGATIVE (Neg); KETONES,URINE TRACE mg/dl (Neg); LEUKOCYTE ESTERASE ,URINE NEGATIVE (Neg); NITRITES, URINE NEGATIVE (Neg); OCCULT BLOOD,URINE NEGATIVE (Neg); PROTEIN,URINE NEGATIVE (Neg); URINE AMPHETAMINE SCREEN POSITIVE (Neg); URINE BARBITUATE SCREEN NEGATIVE (Neg); URINE BENZODIAZEPINES SCREEN NEGATIVE (Neg); URINE CANNABINOID SCREEN NEGATIVE (Neg); URINE COCAINE SCREEN NEGATIVE (Neg); URINE METHADONE SCREEN NEGATIVE (Neg); URINE OPIATE SCREEN NEGATIVE (Neg); URINE PHENCYCLIDINE SCREEN NEGATIVE (Neg); UROBILINOGEN,URINE 0.2 E.U/dL (0.2-1.0)
[2023-08-12 04:46] LABS: UA COLLECTION TYPE VOIDED
[2023-08-12 11:36] LABS: ALBUMIN 3.1 G/DL (3.4-5.0); ANION GAP 9 (8-16); BLOOD UREA NITROGEN 41 MG/DL (7-18); BUN/CREATININE RATIO 31.3 (10.0-20.0); CALCIUM 9.5 MG/DL (8.5-10.1); CHLORIDE 103 MMOL/L (99-107); CREATININE 1.31 MG/DL (0.60-1.10); GLUCOSE 88 MG/DL (70-104); POTASSIUM 3.9 MMOL/L (3.5-5.1); SODIUM 139 MMOL/L (135-145); TOTAL CARBON DIOXIDE 26.8 MMOL/L (24-32); eCRCL 83 ML/MIN; eGFR 59 ML/MIN
[2023-08-12] MEDS: olanzapine 10mg tablet PO SCH (19:03)
--- NOTE | 2023-08-12 19:04 | NUR ---
PT FOUND WANDERING IN [address] REQUESTING TO LEAVE AND REMOVE HIS IV SINCE HE IS "RECIEVING NO TREATMENT". PT WAS ABLE TO BE REDIRECED BACK TO ER ROOM 14. PT STATES HIS NEEDS ARE NOT BEING MET. IV REMOVED FROM RIGHT AC. PT GIVEN DINNER TRAY. MEDICATION GIVEN TO PATIENT PERSCRIBED BY ER MD. PT IS NOW ASKING WHY HE IS HAVING VISUAL HALLUCINATIONS AND IS STILL ON EDGE BUT IS REDIRECTABLE AT THIS TIME.
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
--- NOTE | 2023-08-12 21:00 | NUR ---
Fell asleep at 20:15. Resting on right side. Resp even and unlabored.
--- NOTE | 2023-08-12 22:51 | NUR ---
Asked for a snack at 22:30 then returned to bed and fell asleep. Resting on left side. Resp even and unlabored.
--- NOTE | 2023-08-12 23:43 | NUR ---
Pt awake, requesting snack, provided sandwich and milk.
--- NOTE | 2023-08-13 01:16 | NUR ---
Sleeping. Resp even and unlabored.
--- NOTE | 2023-08-13 03:17 | NUR ---
Sleeping. Resp even and unlabored.
--- NOTE | 2023-08-13 05:27 | NUR ---
Sleeping on left side. Resp even and unlabored.
[2023-08-13 05:53] VITALS: BP 92/58; PULSE 65; RESP 16; TEMP 97.9; O2SAT 100
--- NOTE | 2023-08-13 07:35 | NUR ---
Patient reclining in bed awake. No distress observed. Continue to monitor.
--- NOTE | 2023-08-13 08:20 | NUR ---
Patient eating breakfast. No distress observed. Continue to monitor.
--- NOTE | 2023-08-13 08:45 | NUR ---
Elias WHITFIELD, evaluating patient. No distress observed. Continue to monitor.
[2023-08-13] MEDS: olanzapine 10mg tablet PO SCH (08:48)
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
[2023-08-14] MEDS ORDERED: SULF1TAB49 PO (08:07)
== END 2023-08-13 09:00 | disposition home or self-care (01) ==
LOC: ER 16:01
DX: F19.10 Other psychoactive substance abuse, uncomplicated (principal); Z20.822 Contact with and (suspected) exposure to COVID-19; R44.0 Auditory hallucinations; G35 Multiple sclerosis; I10 Essential (primary) hypertension; G89.29 Other chronic pain; F15.90 Other stimulant use, unspecified, uncomplicated; Z72.89 Other problems related to lifestyle; Z56.0 Unemployment, unspecified; Z59.00 Homelessness unspecified; Z79.899 Other long term (current) drug therapy; Z88.8 Allergy status to other drugs, medicaments and biological substances
CPT/HCPCS: 36415; 80048; 80053; 80305; 80320; 81003; 82550; 82553; 83874; 84443; 85025; 87811; 96360; 96361; 99284; J7120; Q0163; 99285

== ENCOUNTER 2023-08-13 21:55 | Emergency (ER) | payer MEDICAID ==
[~2023-08-13] VITALS: Ht 188 cm; Wt 87.4 kg
[2023-08-13 22:01] VITALS: BP 111/63; PULSE 91; RESP 20; TEMP 98.6; O2SAT 97
[2023-08-14] MEDS ORDERED: SULF1TAB49 PO (08:07)
== END 2023-08-14 00:48 | disposition left against medical advice (07) ==
LOC: ER 21:56
DX: Z04.6 Encounter for general psychiatric examination, requested by authority (principal); Z53.21 Procedure and treatment not carried out due to patient leaving prior to being seen by health care provider
CPT/HCPCS: 99281

== ENCOUNTER 2023-08-14 01:44 | Emergency (ER) | payer MEDICAID ==
[~2023-08-14] VITALS: Ht 188 cm; Wt 87.4 kg
[2023-08-14 01:48] VITALS: BP 104/64; PULSE 82; RESP 18; TEMP 98.4; O2SAT 99
[2023-08-14] MEDS ORDERED: SULF1TAB49 PO (08:07)
== END 2023-08-14 04:12 | disposition left against medical advice (07) ==
LOC: ER 01:45
DX: R45.850 Homicidal ideations (principal); R45.851 Suicidal ideations; Z53.21 Procedure and treatment not carried out due to patient leaving prior to being seen by health care provider
CPT/HCPCS: 99281

== ENCOUNTER 2023-08-14 07:15 | Emergency (ER) | payer MEDICAID ==
[~2023-08-14] VITALS: Ht 190.5 cm; Wt 96.2 kg
[~2023-08-14 07:15] MED LIST changes: -AMOX500C2 PO; -CEPH250T PO; -DOXY-356 PO; -METH35.42 TOP
[2023-08-14 07:16] VITALS: BP 118/58; PULSE 74; RESP 16; TEMP 97.7; O2SAT 99
[2023-08-14] MEDS ORDERED: SULF1TAB49 PO (08:07)
== END 2023-08-14 08:29 | disposition home or self-care (01) ==
LOC: ER 07:16
DX: L73.9 Follicular disorder, unspecified (principal); F31.9 Bipolar disorder, unspecified; I10 Essential (primary) hypertension; F15.90 Other stimulant use, unspecified, uncomplicated; Z88.8 Allergy status to other drugs, medicaments and biological substances; Z79.899 Other long term (current) drug therapy
CPT/HCPCS: 99283

== ENCOUNTER 2023-08-18 05:52 | Emergency (ER) | payer MEDICAID ==
[~2023-08-18] VITALS: Ht 190.5 cm; Wt 76.0 kg
[~2023-08-18 05:52] MED LIST changes: +SULF1TAB49 PO
[2023-08-18 06:28] VITALS: BP 119/71; PULSE 73; RESP 17; TEMP 98.1; O2SAT 100
== END 2023-08-18 08:43 | disposition left against medical advice (07) ==
LOC: ER 05:52
DX: L02.416 Cutaneous abscess of left lower limb (principal); L02.413 Cutaneous abscess of right upper limb; Z53.21 Procedure and treatment not carried out due to patient leaving prior to being seen by health care provider
CPT/HCPCS: 99281

== ENCOUNTER 2023-10-02 00:47 | Emergency (ER) | payer MEDICAID ==
[~2023-10-02] VITALS: Ht 185.4 cm; Wt 100.0 kg
[~2023-10-02 00:47] MED LIST changes: -SULF1TAB49 PO
[2023-10-02] MEDS ORDERED: OLANZapine 5mg rapidly disint. tablet PO ONE (03:55)
[2023-10-02 04:49] LABS: ALANINE AMINOTRANSFERASE 24 U/L (12-78); ALBUMIN 3.6 G/DL (3.4-5.0); ALBUMIN/GLOBULIN RATIO 1.1 (1.1-1.5); ALKALINE PHOSPHATASE 55 IU/L (46-116); ANION GAP 6 (8-16); ASPARTATE AMINO TRANSFERASE 21 U/L (10-37); BILIRUBIN,TOTAL 0.4 MG/DL (0.1-1.0); BLOOD UREA NITROGEN 19 MG/DL (7-18); BUN/CREATININE RATIO 20.4 (10.0-20.0); CALCIUM 9.4 MG/DL (8.5-10.1); CHLORIDE 105 MMOL/L (99-107); CREATININE 0.93 MG/DL (0.60-1.10); GLUCOSE 74 MG/DL (70-104); POTASSIUM 4.1 MMOL/L (3.5-5.1); SODIUM 142 MMOL/L (135-145); TOTAL CARBON DIOXIDE 30.8 MMOL/L (24-32); TOTAL PROTEIN 6.9 G/DL (6.4-8.2); eCRCL 113 ML/MIN; eGFR 88 ML/MIN
[2023-10-02 04:50] LABS: ETHANOL < 10 MG/DL (<10)
[2023-10-02 04:53] LABS: EOSINOPHILS # (AUTO) 0.4 X10'3 (0-0.9); MEAN CORPUSCULAR HEMOGLOBIN 31.4 PG (27.0-31.0); MONOCYTES # (AUTO) 0.8 X10'3 (0-0.9)
[2023-10-02 04:54] LABS: BASOPHILS % (AUTO) 0.4 % (0-1); EOSINOPHILS % (AUTO) 4.1 % (0-6); HEMATOCRIT 41.3 % (42.0-52.0); LYMPHOCYTES # (AUTO) 3.4 X10'3 (1.1-4.8); LYMPHOCYTES % (AUTO) 33.5 % (21-51); MEAN CORPUSCULAR HGB CONC 33.9 g/dL (33.0-36.5); MEAN CORPUSCULAR VOLUME 92.6 FL (78-98); MONOCYTES % (AUTO) 7.6 % (2-12); NEUTROPHILS # (AUTO) 5.5 X10'3 (1.8-7.7); NEUTROPHILS % (AUTO) 54.4 % (42-75); PLATELET COUNT 471 X10'3 (140-440); RED BLOOD COUNT 4.45 X10'6 (4.70-6.10); RED CELL DISTRIBUTION WIDTH 14.6 % (11.5-14.5); WHITE BLOOD COUNT 10.2 X10'3 (4.5-11.0)
[2023-10-02 05:07] LABS: VALPROATE < 3.0 UG/ML (50-100)
[2023-10-02 06:22] LABS: BILIRUBIN,URINE NEGATIVE (Neg); CLARITY,URINE CLEAR (Clear); COLOR,URINE YELLOW (Yellow); GLUCOSE, URINE NEGATIVE (Neg); KETONES,URINE NEGATIVE (Neg); LEUKOCYTE ESTERASE ,URINE NEGATIVE (Neg); NITRITES, URINE NEGATIVE (Neg); OCCULT BLOOD,URINE NEGATIVE (Neg); PROTEIN,URINE NEGATIVE (Neg); UROBILINOGEN,URINE 0.2 E.U/dL (0.2-1.0)
[2023-10-02 06:31] LABS: UA COLLECTION TYPE VOIDED
[2023-10-02 06:39] LABS: URINE AMPHETAMINE SCREEN NEGATIVE (Neg); URINE BARBITUATE SCREEN NEGATIVE (Neg); URINE BENZODIAZEPINES SCREEN NEGATIVE (Neg); URINE CANNABINOID SCREEN NEGATIVE (Neg); URINE COCAINE SCREEN NEGATIVE (Neg); URINE METHADONE SCREEN NEGATIVE (Neg); URINE OPIATE SCREEN NEGATIVE (Neg); URINE PHENCYCLIDINE SCREEN NEGATIVE (Neg)
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
[2023-10-02 13:18] VITALS: BP 127/63; PULSE 72; RESP 13; TEMP 98; O2SAT 98
--- NOTE | 2023-10-02 13:19 | NUR ---
PT MEDICALLY CLEARED AND PER DEVYN WITH [facility] PT MAY BE DISCHARGED AT THIS TIME. CELIA SCHULZ OBTAINING PT MEDS FROM PHARM/PT GIVEN HIS BELONGINGS.
--- NOTE | 2023-10-02 13:20 | NUR ---
DISCHARGE/DISCHARGE ASSESSMENT COMPLETED BY CELIA SCHULZ. PT LEFT ED IN STABLE CONDITION AND STATED HE WOULD RETURN TO NO BOUNDARIES/CONTACTED STAFF THERE WITH PHONE PROVIDED BY RN. PT WAS PROVIDED A MEAL AND REFUSED TRANSPORTATION ASSISTANCE.
== END 2023-10-02 13:24 | disposition home or self-care (01) ==
LOC: ER 00:48
DX: Z02.89 Encounter for other administrative examinations (principal); Z20.822 Contact with and (suspected) exposure to COVID-19; F43.10 Post-traumatic stress disorder, unspecified; G35 Multiple sclerosis; I10 Essential (primary) hypertension; G89.29 Other chronic pain; F41.9 Anxiety disorder, unspecified; F20.9 Schizophrenia, unspecified; F15.90 Other stimulant use, unspecified, uncomplicated; Z56.0 Unemployment, unspecified; Z59.00 Homelessness unspecified; Z79.899 Other long term (current) drug therapy
CPT/HCPCS: 36415; 70450; 80053; 80164; 80305; 80320; 81003; 82948; 85025; 87811; 99284

== ENCOUNTER 2023-10-25 20:00 | Emergency (ER) | payer MEDICAID ==
[~2023-10-25] VITALS: Ht 190.5 cm; Wt 103.7 kg
[2023-10-26 01:24] LABS: ALANINE AMINOTRANSFERASE 20 U/L (12-78); ALBUMIN 3.2 G/DL (3.4-5.0); ALKALINE PHOSPHATASE 53 IU/L (46-116); ANION GAP 3 (8-16); ASPARTATE AMINO TRANSFERASE 16 U/L (10-37); BILIRUBIN,TOTAL 0.3 MG/DL (0.1-1.0); BLOOD UREA NITROGEN 20 MG/DL (7-18); BUN/CREATININE RATIO 17.5 (10.0-20.0); CALCIUM 9.1 MG/DL (8.5-10.1); CHLORIDE 109 MMOL/L (99-107); CREATININE 1.14 MG/DL (0.60-1.10); GLUCOSE 95 MG/DL (70-104); POTASSIUM 4.3 MMOL/L (3.5-5.1); SODIUM 142 MMOL/L (135-145); TOTAL CARBON DIOXIDE 29.8 MMOL/L (24-32); TOTAL PROTEIN 6.3 G/DL (6.4-8.2); eCRCL 98 ML/MIN; eGFR 69 ML/MIN
[2023-10-26 01:30] LABS: BASOPHILS % (AUTO) 0.3 % (0-1); EOSINOPHILS # (AUTO) 0.3 X10'3 (0-0.9); EOSINOPHILS % (AUTO) 3.1 % (0-6); HEMOGLOBIN 13.7 g/dl (14.0-17.9); LYMPHOCYTES # (AUTO) 4.1 X10'3 (1.1-4.8); LYMPHOCYTES % (AUTO) 36.5 % (21-51); MEAN CORPUSCULAR HEMOGLOBIN 31.1 PG (27.0-31.0); MEAN CORPUSCULAR HGB CONC 34.2 g/dL (33.0-36.5); MEAN CORPUSCULAR VOLUME 90.9 FL (78-98); MEAN PLATELET VOLUME 7.7 FL (7.4-10.4); MONOCYTES # (AUTO) 0.7 X10'3 (0-0.9); MONOCYTES % (AUTO) 6.7 % (2-12); NEUTROPHILS # (AUTO) 5.9 X10'3 (1.8-7.7); NEUTROPHILS % (AUTO) 53.4 % (42-75); PLATELET COUNT 485 X10'3 (140-440); RED CELL DISTRIBUTION WIDTH 13.9 % (11.5-14.5); WHITE BLOOD COUNT 11.1 X10'3 (4.5-11.0)
[2023-10-26 01:32] LABS: ETHANOL < 10 MG/DL (<10); THYROID STIMULATING HORMONE 1.17 ulU/ml (0.34-4.50)
[2023-10-26] MEDS ORDERED: PROP10TA10 PO (01:42)
[2023-10-26] MEDS ORDERED: ALBUTERAL INH (01:43)
[2023-10-26] MEDS ORDERED: RISP3TAB63 PO (01:48)
[2023-10-26] MEDS ORDERED: TOPI-253 PO (01:48)
[2023-10-26] MEDS ORDERED: DIVA500T9 PO (01:48)
[2023-10-26 03:04] LABS: URINE AMPHETAMINE SCREEN NEGATIVE (Neg); URINE BARBITUATE SCREEN NEGATIVE (Neg); URINE BENZODIAZEPINES SCREEN NEGATIVE (Neg); URINE CANNABINOID SCREEN NEGATIVE (Neg); URINE COCAINE SCREEN NEGATIVE (Neg); URINE METHADONE SCREEN NEGATIVE (Neg); URINE OPIATE SCREEN NEGATIVE (Neg); URINE PHENCYCLIDINE SCREEN NEGATIVE (Neg)
[2023-10-26] MEDS ORDERED: albuterol 2.5 MG/3 ML nebule NEB PRN (04:35)
[2023-10-26] MEDS ORDERED: risperiDONE 0.5mg tablet PO SCH (08:00)
[2023-10-26] MEDS ORDERED: topiramate 25mg tablet PO SCH (08:00)
[2023-10-26] MEDS ORDERED: divalproex sod 250mg ER (24-hour) tablet PO SCH (08:00)
[2023-10-26] MEDS ORDERED: propranolol 10mg tablet PO SCH (08:00)
[2023-10-26 10:52] VITALS: BP 102/62; PULSE 69; RESP 16; TEMP 98.3; O2SAT 99
== END 2023-10-26 10:55 | disposition home or self-care (01) ==
LOC: ER 20:01
DX: F20.9 Schizophrenia, unspecified (principal); Z20.822 Contact with and (suspected) exposure to COVID-19; I10 Essential (primary) hypertension; G89.29 Other chronic pain; F41.9 Anxiety disorder, unspecified; F31.9 Bipolar disorder, unspecified; F15.90 Other stimulant use, unspecified, uncomplicated; Z86.69 Personal history of other diseases of the nervous system and sense organs; Z59.00 Homelessness unspecified; Z56.0 Unemployment, unspecified; Z88.8 Allergy status to other drugs, medicaments and biological substances; Z79.899 Other long term (current) drug therapy
CPT/HCPCS: 36415; 80053; 80305; 80320; 84443; 85025; 87811; 99284

== ENCOUNTER 2023-10-30 16:54 | Emergency (ER) | payer MEDICAID ==
[~2023-10-30 16:54] MED LIST changes: +ALBUTERAL INH; -HYDR-3686 PO; -IBUP-1986 PO; -NICO-687 TD; -NICO-907 BC; +PROP10TA10 PO
== END 2023-10-30 19:27 | disposition left against medical advice (07) ==
LOC: ER 16:55
DX: Z71.1 Person with feared health complaint in whom no diagnosis is made (principal); Z53.21 Procedure and treatment not carried out due to patient leaving prior to being seen by health care provider

== ENCOUNTER 2023-11-29 19:02 | Emergency (ER) | payer MEDICAID ==
[~2023-11-29] VITALS: Ht 190.5 cm; Wt 100.0 kg
[~2023-11-29 19:02] MED LIST changes: -TOPI-253 PO; +TOPI-95 PO
[2023-11-29 19:10] VITALS: BP 139/81; PULSE 100; RESP 18; TEMP 97.8; O2SAT 100
== END 2023-11-29 20:14 | disposition left against medical advice (07) ==
LOC: ER 19:02
DX: F29 Unspecified psychosis not due to a substance or known physiological condition (principal); Z53.21 Procedure and treatment not carried out due to patient leaving prior to being seen by health care provider
CPT/HCPCS: 99281; C2617

== ENCOUNTER 2023-12-03 01:36 | Emergency (ER) | payer MEDICAID ==
[~2023-12-03] VITALS: Ht 188 cm; Wt 100.4 kg
[2023-12-03 03:54] VITALS: BP 142/86; PULSE 80; RESP 14; TEMP 98.2; O2SAT 100
== END 2023-12-03 08:08 | disposition left against medical advice (07) ==
LOC: ER 01:36
DX: F29 Unspecified psychosis not due to a substance or known physiological condition (principal); Z53.21 Procedure and treatment not carried out due to patient leaving prior to being seen by health care provider
CPT/HCPCS: 99281

== ENCOUNTER 2023-12-03 22:55 | Emergency (ER) | payer MEDICAID ==
[~2023-12-03] VITALS: Ht 188 cm; Wt 102.1 kg
[2023-12-03 22:57] VITALS: BP 114/84; PULSE 91; RESP 18; TEMP 98.2; O2SAT 100
== END 2023-12-04 00:34 | disposition left against medical advice (07) ==
LOC: ER 22:55
DX: M79.10 Myalgia, unspecified site (principal); Z53.21 Procedure and treatment not carried out due to patient leaving prior to being seen by health care provider
CPT/HCPCS: 99281

== ENCOUNTER 2023-12-06 09:44 | Emergency (ER) | payer MEDICAID ==
[2023-12-07] MEDS ORDERED: ALBU8HFA INH (20:35)
== END 2023-12-06 13:35 | disposition left against medical advice (07) ==
LOC: ER 09:45
DX: F29 Unspecified psychosis not due to a substance or known physiological condition (principal); Z53.21 Procedure and treatment not carried out due to patient leaving prior to being seen by health care provider

== ENCOUNTER 2023-12-07 08:31 | Emergency (ER) | payer MEDICAID ==
[~2023-12-07] VITALS: Ht 190.5 cm; Wt 99.5 kg
[2023-12-07] MEDS ORDERED: LORazepam 1 MG tablet PO ONE ×2 (10:15→18:55)
[2023-12-07 11:12] LABS: BASOPHILS # (AUTO) 0.1 X10'3 (0-0.2); BASOPHILS % (AUTO) 0.6 % (0-1); EOSINOPHILS # (AUTO) 0.4 X10'3 (0-0.9); HEMATOCRIT 47.4 % (42.0-52.0); HEMOGLOBIN 15.6 g/dl (14.0-17.9); LYMPHOCYTES # (AUTO) 2.1 X10'3 (1.1-4.8); LYMPHOCYTES % (AUTO) 16.6 % (21-51); MEAN CORPUSCULAR HEMOGLOBIN 29.8 PG (27.0-31.0); MEAN CORPUSCULAR VOLUME 90.3 FL (78-98); MEAN PLATELET VOLUME 7.5 FL (7.4-10.4); MONOCYTES # (AUTO) 0.8 X10'3 (0-0.9); MONOCYTES % (AUTO) 6.7 % (2-12); NEUTROPHILS # (AUTO) 9.2 X10'3 (1.8-7.7); NEUTROPHILS % (AUTO) 73.1 % (42-75); PLATELET COUNT 690 X10'3 (140-440); RED BLOOD COUNT 5.25 X10'6 (4.70-6.10); WHITE BLOOD COUNT 12.5 X10'3 (4.5-11.0)
[2023-12-07 11:35] LABS: ALANINE AMINOTRANSFERASE 30 U/L (12-78); ALBUMIN 3.4 G/DL (3.4-5.0); ALBUMIN/GLOBULIN RATIO 0.9 (1.1-1.5); ALKALINE PHOSPHATASE 67 IU/L (46-116); ANION GAP 4 (8-16); ASPARTATE AMINO TRANSFERASE 20 U/L (10-37); BILIRUBIN,TOTAL 0.4 MG/DL (0.1-1.0); BLOOD UREA NITROGEN 19 MG/DL (7-18); BUN/CREATININE RATIO 19.8 (10.0-20.0); CALCIUM 9.3 MG/DL (8.5-10.1); CHLORIDE 103 MMOL/L (99-107); CREATININE 0.96 MG/DL (0.60-1.10); ETHANOL < 10 MG/DL (<10); GLUCOSE 68 MG/DL (70-104); POTASSIUM 4.3 MMOL/L (3.5-5.1); SALICYLATE 3.9 MG/DL (4.0-20.0); SODIUM 140 MMOL/L (135-145); TOTAL PROTEIN 7.3 G/DL (6.4-8.2); eCRCL 116 ML/MIN; eGFR 85 ML/MIN
[2023-12-07 11:39] LABS: ACETAMINOPHEN < 2.0 UG/ML (10-30)
[2023-12-07 12:15] LABS: URINE AMPHETAMINE SCREEN POSITIVE (Neg); URINE BARBITUATE SCREEN NEGATIVE (Neg); URINE BENZODIAZEPINES SCREEN NEGATIVE (Neg); URINE CANNABINOID SCREEN NEGATIVE (Neg); URINE COCAINE SCREEN NEGATIVE (Neg); URINE METHADONE SCREEN NEGATIVE (Neg); URINE OPIATE SCREEN NEGATIVE (Neg); URINE PHENCYCLIDINE SCREEN NEGATIVE (Neg)
[2023-12-07] MEDS ORDERED: ibuprofen tablet 400 MG TABLET PO ONE (18:55)
[2023-12-07] MEDS ORDERED: ALBU8HFA INH (20:35)
[2023-12-07] MEDS ORDERED: albuterol 2.5 MG/3 ML nebule NEB PRN (20:45)
[2023-12-07] MEDS: propranolol 10mg tablet PO SCH (22:19)
[2023-12-07] MEDS: risperiDONE 0.5mg tablet PO SCH (22:20)
[2023-12-07] MEDS: topiramate 25mg tablet PO SCH (22:21)
[2023-12-08] MEDS ORDERED: divalproex sod 250mg ER (24-hour) tablet PO SCH (08:00)
[2023-12-08] MEDS: propranolol 10mg tablet PO SCH (08:00)
[2023-12-08] MEDS: risperiDONE 0.5mg tablet PO SCH (08:04)
[2023-12-08] MEDS: topiramate 25mg tablet PO SCH (08:05)
[2023-12-08] MEDS ORDERED: acetaminophen 325mg tablet PO PRN (11:15)
[2023-12-08] MEDS ORDERED: DIVA-76 PO (11:55)
[2023-12-08] MEDS ORDERED: RISP3TAB63 PO (11:55)
[2023-12-08 12:01] VITALS: BP 95/55; PULSE 85; RESP 15; TEMP 98.6; O2SAT 98
[2023-12-09] MEDS ORDERED: CLIN300C3 PO (09:17)
== END 2023-12-08 12:29 | disposition home or self-care (01) ==
LOC: ER 08:32
DX: F23 Brief psychotic disorder (principal); F32.A Depression, unspecified; F41.9 Anxiety disorder, unspecified; Z20.822 Contact with and (suspected) exposure to COVID-19
CPT/HCPCS: 36415; 71045; 80053; 80305; 80320; 80329; 85025; 87502; 87503; 87811; 99285

== ENCOUNTER 2023-12-09 08:51 | Emergency (ER) | payer MEDICAID ==
[~2023-12-09] VITALS: Ht 190.5 cm; Wt 91.0 kg
[~2023-12-09 08:51] MED LIST changes: +ALBU8HFA INH; -ALBUTERAL INH; +DIVA-76 PO
[2023-12-09 08:53] VITALS: BP 127/85; PULSE 120; RESP 18; O2SAT 100
[2023-12-09] MEDS ORDERED: clindamycin 150mg capsule PO ONE (09:10)
[2023-12-09] MEDS ORDERED: clindamycin 150mg capsule PO SCH (09:10)
[2023-12-09] MEDS ORDERED: CLIN300C3 PO (09:17)
[2023-12-09] MEDS ORDERED: ibuprofen tablet 400 MG TABLET PO ONE (09:20)
[2023-12-09 09:33] VITALS: TEMP 98.4
== END 2023-12-09 09:35 | disposition home or self-care (01) ==
LOC: ER 08:51
DX: K04.7 Periapical abscess without sinus (principal); K02.9 Dental caries, unspecified
CPT/HCPCS: 99283

== ENCOUNTER 2023-12-10 17:36 | Emergency (ER) | payer MEDICAID ==
[~2023-12-10] VITALS: Ht 190.5 cm; Wt 101.1 kg
[~2023-12-10 17:36] MED LIST changes: +CLIN300C3 PO
[2023-12-10 17:54] VITALS: BP 130/82; PULSE 98; RESP 16; TEMP 96.9; O2SAT 100
[2023-12-10] MEDS ORDERED: clindamycin 150mg capsule PO STA (17:59)
== END 2023-12-10 18:31 | disposition home or self-care (01) ==
LOC: ER 17:37
DX: K08.89 Other specified disorders of teeth and supporting structures (principal); I10 Essential (primary) hypertension; F41.9 Anxiety disorder, unspecified; F20.9 Schizophrenia, unspecified; Z59.00 Homelessness unspecified; F10.90 Alcohol use, unspecified, uncomplicated; F15.90 Other stimulant use, unspecified, uncomplicated
CPT/HCPCS: 99283

== ENCOUNTER 2024-04-26 09:43 | Emergency (ER) | payer SELFPAY ==
[~2024-04-26] VITALS: Ht 190.5 cm; Wt 90.9 kg
[~2024-04-26 09:43] MED LIST changes: -CLIN300C3 PO; -DIVA-76 PO; -RISP3TAB63 PO; +RISP3TAB77 PO
[2024-04-26 09:46] VITALS: BP 111/78; PULSE 80; RESP 16; TEMP 98.6; O2SAT 98
[2024-04-26] MEDS ORDERED: TOPI-95 PO (10:04)
[2024-04-26] MEDS ORDERED: RISP3TAB77 PO ×2 (10:04)
[2024-04-26] MEDS ORDERED: DIVA500T9 PO (10:04)
[2024-04-26] MEDS ORDERED: ALBU8HFA INH (10:04)
[2024-04-26] MEDS ORDERED: PROP10TA10 PO (10:04)
== END 2024-04-26 10:47 | disposition home or self-care (01) ==
LOC: ER 09:46
DX: Z76.0 Encounter for issue of repeat prescription (principal); F15.90 Other stimulant use, unspecified, uncomplicated; I10 Essential (primary) hypertension; F41.9 Anxiety disorder, unspecified; Z88.8 Allergy status to other drugs, medicaments and biological substances; Z79.1 Long term (current) use of non-steroidal anti-inflammatories (NSAID); Z79.899 Other long term (current) drug therapy
CPT/HCPCS: 99283

== ENCOUNTER 2024-05-22 01:30 | Emergency (ER) | payer SELFPAY ==
[~2024-05-22] VITALS: Ht 190.5 cm; Wt 91.4 kg
[2024-05-22 01:32] VITALS: BP 115/91; PULSE 87; RESP 16; TEMP 98.4; O2SAT 97
[2024-05-22] MEDS ORDERED: NAPR-56 PO (16:26)
[2024-05-24] MEDS ORDERED: DOXY-224 PO (18:46)
== END 2024-05-22 02:53 | disposition left against medical advice (07) ==
LOC: ER 01:30
DX: H57.10 Ocular pain, unspecified eye (principal); R07.0 Pain in throat; Z88.8 Allergy status to other drugs, medicaments and biological substances; Z53.21 Procedure and treatment not carried out due to patient leaving prior to being seen by health care provider

== ENCOUNTER 2024-05-22 13:48 | Emergency (ER) | payer MEDICAID ==
[~2024-05-22] VITALS: Ht 190.5 cm; Wt 100.5 kg
[2024-05-22 13:53] VITALS: BP 126/78; RESP 16; O2SAT 96
[2024-05-22] MEDS ORDERED: NAPR-56 PO (16:26)
[2024-05-22 16:34] VITALS: TEMP 98.6
[2024-05-24] MEDS ORDERED: DOXY-224 PO (18:46)
== END 2024-05-22 16:36 | disposition home or self-care (01) ==
LOC: ER 13:49
DX: S16.1XXA Strain of muscle, fascia and tendon at neck level, initial encounter (principal); R68.84 Jaw pain; I10 Essential (primary) hypertension; F31.9 Bipolar disorder, unspecified; F17.200 Nicotine dependence, unspecified, uncomplicated; F15.90 Other stimulant use, unspecified, uncomplicated; Z88.8 Allergy status to other drugs, medicaments and biological substances; Z79.899 Other long term (current) drug therapy; X58.XXXA Exposure to other specified factors, initial encounter; Y93.89 Activity, other specified; Y92.89 Other specified places as the place of occurrence of the external cause; Y99.8 Other external cause status
CPT/HCPCS: 99282

== ENCOUNTER 2024-05-26 19:46 | Emergency (ER) | payer MEDICAID ==
[~2024-05-26] VITALS: Ht 190.5 cm; Wt 86.4 kg
[~2024-05-26 19:46] MED LIST changes: +DOXY-224 PO; +NAPR-56 PO
[2024-05-26 19:56] VITALS: PULSE 85; TEMP 98.2
[2024-05-26 21:48] VITALS: RESP 18
[2024-05-26] MEDS: ketorolac trometh. 30mg/ml inj. IM ONE (21:48)
== END 2024-05-26 21:52 | disposition home or self-care (01) ==
LOC: ER 19:46
DX: K08.89 Other specified disorders of teeth and supporting structures (principal); I10 Essential (primary) hypertension; F15.90 Other stimulant use, unspecified, uncomplicated; Z88.8 Allergy status to other drugs, medicaments and biological substances; Z79.899 Other long term (current) drug therapy; Z79.1 Long term (current) use of non-steroidal anti-inflammatories (NSAID); Z79.2 Long term (current) use of antibiotics
CPT/HCPCS: 96372; 99283; J1885

== ENCOUNTER 2024-05-27 20:08 | Emergency (ER) | payer MEDICAID ==
[~2024-05-27] VITALS: Ht 190.5 cm; Wt 90.9 kg
[2024-05-27 20:13] VITALS: BP 128/93; PULSE 96; RESP 18; TEMP 98.7; O2SAT 97
[2024-05-27 21:38] LABS: BASOPHILS # (AUTO) 0.1 X10'3 (0-0.2); EOSINOPHILS # (AUTO) 0.5 X10'3 (0-0.9); EOSINOPHILS % (AUTO) 2.9 % (0-6); HEMOGLOBIN 16.1 g/dl (14.0-17.9); LYMPHOCYTES # (AUTO) 4.1 X10'3 (1.1-4.8); MEAN PLATELET VOLUME 8.2 FL (7.4-10.4); MONOCYTES # (AUTO) 1.3 X10'3 (0-0.9)
[2024-05-27 21:39] LABS: BASOPHILS % (AUTO) 0.5 % (0-1); HEMATOCRIT 46.1 % (42.0-52.0); LYMPHOCYTES % (AUTO) 24.8 % (21-51); MEAN CORPUSCULAR HEMOGLOBIN 30.8 PG (27.0-31.0); MEAN CORPUSCULAR HGB CONC 34.9 g/dL (33.0-36.5); MEAN CORPUSCULAR VOLUME 88.3 FL (78-98); MONOCYTES % (AUTO) 7.6 % (2-12); NEUTROPHILS # (AUTO) 10.7 X10'3 (1.8-7.7); NEUTROPHILS % (AUTO) 64.2 % (42-75); PLATELET COUNT 727 X10'3 (140-440); RED BLOOD COUNT 5.22 X10'6 (4.70-6.10); RED CELL DISTRIBUTION WIDTH 13.9 % (11.5-14.5); WHITE BLOOD COUNT 16.7 X10'3 (4.5-11.0)
[2024-05-27 21:47] LABS: ALBUMIN 4.4 G/DL (3.4-5.0); ANION GAP 11 (8-16); BLOOD UREA NITROGEN 30 MG/DL (7-18); BUN/CREATININE RATIO 22.7 (10.0-20.0); CALCIUM 9.8 MG/DL (8.5-10.1); CHLORIDE 104 MMOL/L (99-107); CREATININE 1.32 MG/DL (0.60-1.10); ETHANOL < 10 MG/DL (<10); GLUCOSE 84 MG/DL (70-104); POTASSIUM 4.2 MMOL/L (3.5-5.1); SODIUM 138 MMOL/L (135-145); TOTAL CARBON DIOXIDE 22.7 MMOL/L (24-32); eCRCL 84 ML/MIN; eGFR 59 ML/MIN
== END 2024-05-27 21:49 | disposition left against medical advice (07) ==
LOC: ER 20:09
DX: Z00.00 Encounter for general adult medical examination without abnormal findings (principal); Z20.822 Contact with and (suspected) exposure to COVID-19; R11.2 Nausea with vomiting, unspecified; I10 Essential (primary) hypertension; G89.29 Other chronic pain; G35 Multiple sclerosis; F15.90 Other stimulant use, unspecified, uncomplicated; Z56.0 Unemployment, unspecified; Z59.00 Homelessness unspecified; Z79.899 Other long term (current) drug therapy; Z88.8 Allergy status to other drugs, medicaments and biological substances
CPT/HCPCS: 36415; 80048; 80320; 85025; 87811; 99283

== ENCOUNTER 2024-06-01 14:34 | Emergency (ER) | payer MEDICAID ==
[~2024-06-01] VITALS: Ht 190.5 cm; Wt 95.6 kg
[2024-06-01 15:29] LABS: BASOPHILS # (AUTO) 0.1 X10'3 (0-0.2); BASOPHILS % (AUTO) 0.4 % (0-1); EOSINOPHILS # (AUTO) 0.2 X10'3 (0-0.9); EOSINOPHILS % (AUTO) 1.7 % (0-6); HEMATOCRIT 47.8 % (42.0-52.0); HEMOGLOBIN 16.3 g/dl (14.0-17.9); LYMPHOCYTES # (AUTO) 2.5 X10'3 (1.1-4.8); LYMPHOCYTES % (AUTO) 18.9 % (21-51); MEAN CORPUSCULAR HEMOGLOBIN 30.3 PG (27.0-31.0); MEAN CORPUSCULAR HGB CONC 34.2 g/dL (33.0-36.5); MEAN CORPUSCULAR VOLUME 88.8 FL (78-98); MEAN PLATELET VOLUME 8.2 FL (7.4-10.4); MONOCYTES # (AUTO) 0.9 X10'3 (0-0.9); MONOCYTES % (AUTO) 7.2 % (2-12); NEUTROPHILS # (AUTO) 9.4 X10'3 (1.8-7.7); NEUTROPHILS % (AUTO) 71.8 % (42-75); PLATELET COUNT 603 X10'3 (140-440); RED BLOOD COUNT 5.39 X10'6 (4.70-6.10); RED CELL DISTRIBUTION WIDTH 13.8 % (11.5-14.5); WHITE BLOOD COUNT 13.2 X10'3 (4.5-11.0)
[2024-06-01 15:40] LABS: ALBUMIN 4.2 G/DL (3.4-5.0); ANION GAP 14 (8-16); BLOOD UREA NITROGEN 32 MG/DL (7-18); BUN/CREATININE RATIO 17.9 (10.0-20.0); CALCIUM 10.4 MG/DL (8.5-10.1); CHLORIDE 101 MMOL/L (99-107); CREATININE 1.79 MG/DL (0.60-1.10); ETHANOL < 10 MG/DL (<10); GLUCOSE 137 MG/DL (70-104); POTASSIUM 3.1 MMOL/L (3.5-5.1); SODIUM 137 MMOL/L (135-145); TOTAL CARBON DIOXIDE 21.6 MMOL/L (24-32); eCRCL 62 ML/MIN; eGFR 41 ML/MIN
[2024-06-01] MEDS: ondansetron/PF 4mg/2ml inj IV ONE (16:03)
[2024-06-01] MEDS: normal saline 1000ML IV soln IVB ONE (16:03)
[2024-06-01] MEDS: LORazepam 2 mg/ml vial IV ONE (16:04)
[2024-06-01] MEDS: ketorolac tromethamine 15mg/ml inj. IV ONE (16:05)
[2024-06-01] MEDS: potassium Cl 20 mEq SR tablet PO ONE (16:20)
[2024-06-01] MEDS: normal saline 1000ml 1,000 ML IV ONE (17:49)
[2024-06-01 18:11] LABS: URINE AMPHETAMINE SCREEN NEGATIVE (Neg); URINE BARBITUATE SCREEN NEGATIVE (Neg); URINE BENZODIAZEPINES SCREEN NEGATIVE (Neg); URINE CANNABINOID SCREEN NEGATIVE (Neg); URINE COCAINE SCREEN NEGATIVE (Neg); URINE METHADONE SCREEN NEGATIVE (Neg); URINE OPIATE SCREEN NEGATIVE (Neg); URINE PHENCYCLIDINE SCREEN NEGATIVE (Neg)
[2024-06-01] MEDS: bacitracin 15gm ointment TP SCH (20:57)
[2024-06-02 06:10] VITALS: BP 99/52; PULSE 57; TEMP 99.4; O2SAT 98
[2024-06-02 07:50] VITALS: RESP 16
[2024-06-02] MEDS: LORazepam 1 MG tablet PO ONE (12:42)
[2024-06-02] MEDS ORDERED: RISP3TAB77 PO (13:13)
[2024-06-02] MEDS ORDERED: DIVA500T9 PO (13:13)
[2024-06-02] MEDS ORDERED: TOPI-95 PO (13:13)
[2024-06-02] MEDS ORDERED: GABA300C PO (13:13)
[2024-06-02] MEDS ORDERED: topiramate 100mg tablet PO ONE (17:20)
[2024-06-02] MEDS ORDERED: risperiDONE 0.5mg tablet PO ONE (17:20)
[2024-06-02] MEDS ORDERED: gabapentin 300mg capsule PO ONE (17:20)
[2024-06-02] MEDS ORDERED: topiramate 25mg tablet PO ONE (17:30)
[2024-06-02] MEDS ORDERED: topiramate 25mg tablet PO SCH (20:00)
[2024-06-02] MEDS ORDERED: risperiDONE 0.5mg tablet PO SCH (20:00)
[2024-06-02] MEDS ORDERED: gabapentin 300mg capsule PO SCH (21:00)
[2024-06-03] MEDS ORDERED: divalproex sod 250mg ER (24-hour) tablet PO SCH (08:00)
== END 2024-06-02 17:48 | disposition still patient (30) ==
LOC: ER 14:35
DX: R45.851 Suicidal ideations (principal); Z20.822 Contact with and (suspected) exposure to COVID-19; E86.0 Dehydration; F10.90 Alcohol use, unspecified, uncomplicated; F15.90 Other stimulant use, unspecified, uncomplicated; I10 Essential (primary) hypertension; G89.29 Other chronic pain; M54.9 Dorsalgia, unspecified; F41.9 Anxiety disorder, unspecified; F20.9 Schizophrenia, unspecified; F31.9 Bipolar disorder, unspecified; F28 Other psychotic disorder not due to a substance or known physiological condition; Z79.1 Long term (current) use of non-steroidal anti-inflammatories (NSAID); Z79.2 Long term (current) use of antibiotics; Z79.899 Other long term (current) drug therapy; Z56.0 Unemployment, unspecified; Z59.00 Homelessness unspecified
CPT/HCPCS: 36415; 80048; 80305; 80320; 85025; 87811; 96361; 96374; 96375; 99285; J1885; J2060; J2405; J7030

== ENCOUNTER 2024-06-02 19:52 | Emergency (ER) | payer MEDICAID ==
[~2024-06-02] VITALS: Ht 190.5 cm; Wt 100.0 kg
[~2024-06-02 19:52] MED LIST changes: +GABA300C PO
[2024-06-02 19:56] VITALS: BP 142/78; PULSE 90; RESP 16; TEMP 98; O2SAT 99
== END 2024-06-02 20:50 | disposition home or self-care (01) ==
LOC: ER 19:52
DX: M54.9 Dorsalgia, unspecified (principal); M54.2 Cervicalgia; Z53.21 Procedure and treatment not carried out due to patient leaving prior to being seen by health care provider

== ENCOUNTER 2024-06-03 08:46 | Emergency (ER) | payer MEDICAID ==
[~2024-06-03] VITALS: Ht 190.5 cm; Wt 99.4 kg
[~2024-06-03 08:46] MED LIST changes: -ALBU8HFA INH; -DOXY-224 PO; -NAPR-56 PO; -PROP10TA10 PO
[2024-06-03 08:48] VITALS: BP 142/80; PULSE 102; RESP 16; TEMP 98; O2SAT 99
== END 2024-06-03 09:54 | disposition left against medical advice (07) ==
LOC: ER 08:46
DX: Z04.6 Encounter for general psychiatric examination, requested by authority (principal); Z53.21 Procedure and treatment not carried out due to patient leaving prior to being seen by health care provider

== ENCOUNTER 2024-06-07 16:10 | Emergency (ER) | payer MEDICAID | END 2024-06-07 16:25 | disposition left against medical advice (07) | LOC: ER 16:11 | DX: Z53.21 Procedure and treatment not carried out due to patient leaving prior to being seen by health care provider (principal); Z88.8 Allergy status to other drugs, medicaments and biological substances ==

== ENCOUNTER 2024-06-08 20:41 | Emergency (ER) | payer MEDICAID ==
[~2024-06-08] VITALS: Ht 195.6 cm; Wt 89.5 kg
[2024-06-08 20:42] VITALS: BP 130/83; PULSE 97; RESP 16; TEMP 98; O2SAT 97
== END 2024-06-08 21:39 | disposition home or self-care (01) ==
LOC: ER 20:41
DX: R51.9 Headache, unspecified (principal); I10 Essential (primary) hypertension; G89.29 Other chronic pain; M54.9 Dorsalgia, unspecified; F41.9 Anxiety disorder, unspecified; F20.9 Schizophrenia, unspecified; F31.9 Bipolar disorder, unspecified; F10.90 Alcohol use, unspecified, uncomplicated; F15.90 Other stimulant use, unspecified, uncomplicated; Z59.00 Homelessness unspecified; Z56.0 Unemployment, unspecified; Z88.8 Allergy status to other drugs, medicaments and biological substances; Z79.899 Other long term (current) drug therapy
CPT/HCPCS: 70450; 99284

== ENCOUNTER 2024-06-15 08:34 | Emergency (ER) | payer MEDICAID ==
[~2024-06-15] VITALS: Ht 190.5 cm; Wt 95.2 kg
[2024-06-15 09:54] LABS: BASOPHILS # (AUTO) 0.1 X10'3 (0-0.2); HEMOGLOBIN 15.7 g/dl (14.0-17.9); LYMPHOCYTES # (AUTO) 2.9 X10'3 (1.1-4.8)
[2024-06-15 09:56] LABS: BASOPHILS % (AUTO) 0.6 % (0-1); EOSINOPHILS # (AUTO) 0.2 X10'3 (0-0.9); EOSINOPHILS % (AUTO) 2.2 % (0-6); HEMATOCRIT 44.7 % (42.0-52.0); LYMPHOCYTES % (AUTO) 27.4 % (21-51); MEAN CORPUSCULAR HEMOGLOBIN 30.7 PG (27.0-31.0); MEAN CORPUSCULAR HGB CONC 35.1 g/dL (33.0-36.5); MEAN CORPUSCULAR VOLUME 87.6 FL (78-98); MEAN PLATELET VOLUME 8.3 FL (7.4-10.4); MONOCYTES # (AUTO) 0.9 X10'3 (0-0.9); NEUTROPHILS # (AUTO) 6.6 X10'3 (1.8-7.7); NEUTROPHILS % (AUTO) 61.8 % (42-75); PLATELET COUNT 635 X10'3 (140-440); RED BLOOD COUNT 5.11 X10'6 (4.70-6.10); RED CELL DISTRIBUTION WIDTH 13.9 % (11.5-14.5); WHITE BLOOD COUNT 10.7 X10'3 (4.5-11.0)
[2024-06-15 10:04] LABS: ALBUMIN 4.2 G/DL (3.4-5.0); ANION GAP 12 (8-16); BLOOD UREA NITROGEN 32 MG/DL (7-18); BUN/CREATININE RATIO 25.6 (10.0-20.0); CHLORIDE 100 MMOL/L (99-107); CREATININE 1.25 MG/DL (0.60-1.10); GLUCOSE 108 MG/DL (70-104); POTASSIUM 3.9 MMOL/L (3.5-5.1); SODIUM 137 MMOL/L (135-145); TOTAL CARBON DIOXIDE 25.5 MMOL/L (24-32); eCRCL 89 ML/MIN; eGFR 62 ML/MIN
[2024-06-15 10:17] LABS: ETHANOL < 10 MG/DL (<10)
[2024-06-15 11:27] LABS: URINE AMPHETAMINE SCREEN POSITIVE (Neg); URINE BARBITUATE SCREEN NEGATIVE (Neg); URINE BENZODIAZEPINES SCREEN NEGATIVE (Neg); URINE COCAINE SCREEN NEGATIVE (Neg)
[2024-06-15 11:28] LABS: URINE CANNABINOID SCREEN NEGATIVE (Neg); URINE METHADONE SCREEN NEGATIVE (Neg); URINE OPIATE SCREEN NEGATIVE (Neg); URINE PHENCYCLIDINE SCREEN NEGATIVE (Neg)
[2024-06-15 16:21] LABS: BILIRUBIN,URINE SMALL (Neg); CLARITY,URINE CLOUDY (Clear); COLOR,URINE AMBER (Yellow); GLUCOSE, URINE NEGATIVE (Neg); KETONES,URINE NEGATIVE (Neg); LEUKOCYTE ESTERASE ,URINE NEGATIVE (Neg); NITRITES, URINE NEGATIVE (Neg); OCCULT BLOOD,URINE NEGATIVE (Neg); PH,URINE 5.5 (4.8-8.0); PROTEIN,URINE 30 mg/dl (Neg)
[2024-06-15 16:23] LABS: UA COLLECTION TYPE CLN CATCH MIDSTREAM
[2024-06-15 16:28] LABS: BACTERIA,URINE NONE SEEN /HPF (Neg); MUCUS STRANDS MODERATE /LPF (Neg); RBC,URINE NONE SEEN /HPF (0-2); SPERM FEW /HPF (NEGATIVE); SQUAMOUS EPITHELIAL CELL,UR NONE SEEN /LPF (FEW); WBC,URINE 0-4 /HPF (0-4)
[2024-06-15 16:33] LABS: ALANINE AMINOTRANSFERASE 47 U/L (12-78); ALBUMIN/GLOBULIN RATIO 1.1 (1.1-1.5); ALKALINE PHOSPHATASE 79 IU/L (46-116); ASPARTATE AMINO TRANSFERASE 33 U/L (10-37); BILIRUBIN,DIRECT 0.3 MG/DL (0-0.3); BILIRUBIN,TOTAL 1.3 MG/DL (0.1-1.0); THYROID STIMULATING HORMONE 1.01 ulU/ml (0.34-4.50)
[2024-06-15] MEDS: ibuprofen tablet 400 MG TABLET PO ONE (19:28)
[2024-06-15] MEDS: risperiDONE 2mg tablet PO SCH (20:00)
[2024-06-15] MEDS: topiramate 25mg tablet PO SCH (20:00)
[2024-06-15] MEDS: divalproex sod 250mg ER (24-hour) tablet PO SCH (21:11)
[2024-06-15] MEDS: gabapentin 300mg capsule PO SCH (21:11)
[2024-06-15] MEDS: LORazepam 2 mg/ml vial IM ONE (21:20)
[2024-06-15] MEDS: LORazepam 1 MG tablet PO ONE (21:20)
[2024-06-15] MEDS: haloperidol lactate 5mg/ml inj IM ONE (21:35)
[2024-06-15] MEDS: diphenhydrAMINE 50 mg/ml inj IM ONE (21:35)
[2024-06-17] MEDS: LORazepam 2 mg/ml vial ONE (03:38)
[2024-06-17] MEDS: LORazepam 1 MG tablet PO STA (03:38)
[2024-06-17] MEDS: haloperidol lactate 5mg/ml inj ONE (03:39)
[2024-06-17] MEDS: diphenhydrAMINE 50 mg/ml inj ONE (03:39)
[2024-06-17] MEDS: haloperidol 5mg tablet PO STA (03:40)
[2024-06-17 08:53] VITALS: BP 106/60; PULSE 63; TEMP 97.3; O2SAT 97
[2024-06-17 08:58] VITALS: RESP 14
[2024-06-17] MEDS ORDERED: RISP3TAB77 PO (17:52)
[2024-06-17] MEDS ORDERED: DIVA500T9 PO (17:52)
[2024-06-17] MEDS ORDERED: TOPI-95 PO (17:52)
[2024-06-17] MEDS ORDERED: GABA300C PO (17:52)
== END 2024-06-17 18:03 | disposition home or self-care (01) ==
LOC: ER 08:35
DX: R44.0 Auditory hallucinations (principal); R45.851 Suicidal ideations; Z20.822 Contact with and (suspected) exposure to COVID-19; I10 Essential (primary) hypertension; G89.29 Other chronic pain; M54.9 Dorsalgia, unspecified; F41.9 Anxiety disorder, unspecified; F15.90 Other stimulant use, unspecified, uncomplicated; F31.9 Bipolar disorder, unspecified; Z59.00 Homelessness unspecified; Z56.0 Unemployment, unspecified; Z72.89 Other problems related to lifestyle; Z88.8 Allergy status to other drugs, medicaments and biological substances; Z79.899 Other long term (current) drug therapy
CPT/HCPCS: 36415; 80048; 80076; 80305; 80320; 81001; 84443; 85025; 87811; 96372; 99285; J1200; J1630; J2060

== ENCOUNTER 2024-06-19 21:07 | Emergency (ER) | payer MEDICAID ==
[~2024-06-19] VITALS: Ht 190.5 cm; Wt 104.5 kg
[2024-06-19] MEDS: traZODone 50mg tablet PO STA (21:57)
[2024-06-19] MEDS: diphenhydrAMINE 50 mg/ml inj IM ONE (22:00)
[2024-06-19 22:01] LABS: BASOPHILS % (AUTO) 0.4 % (0-1); EOSINOPHILS # (AUTO) 0.1 X10'3 (0-0.9); EOSINOPHILS % (AUTO) 0.7 % (0-6); HEMATOCRIT 41.2 % (42.0-52.0); LYMPHOCYTES # (AUTO) 1.9 X10'3 (1.1-4.8); LYMPHOCYTES % (AUTO) 22.1 % (21-51); MEAN CORPUSCULAR HEMOGLOBIN 30.1 PG (27.0-31.0); MEAN CORPUSCULAR VOLUME 88.4 FL (78-98); MEAN PLATELET VOLUME 8.1 FL (7.4-10.4); MONOCYTES # (AUTO) 0.4 X10'3 (0-0.9); NEUTROPHILS # (AUTO) 6.1 X10'3 (1.8-7.7); NEUTROPHILS % (AUTO) 71.8 % (42-75); PLATELET COUNT 512 X10'3 (140-440); RED BLOOD COUNT 4.66 X10'6 (4.70-6.10); RED CELL DISTRIBUTION WIDTH 13.6 % (11.5-14.5); WHITE BLOOD COUNT 8.6 X10'3 (4.5-11.0)
[2024-06-19 22:11] LABS: ALBUMIN 3.5 G/DL (3.4-5.0); ANION GAP 11 (8-16); BLOOD UREA NITROGEN 30 MG/DL (7-18); BUN/CREATININE RATIO 22.2 (10.0-20.0); CALCIUM 9.6 MG/DL (8.5-10.1); CHLORIDE 104 MMOL/L (99-107); CREATININE 1.35 MG/DL (0.60-1.10); GLUCOSE 104 MG/DL (70-104); POTASSIUM 3.2 MMOL/L (3.5-5.1); SODIUM 138 MMOL/L (135-145); TOTAL CARBON DIOXIDE 23.3 MMOL/L (24-32); eCRCL 83 ML/MIN; eGFR 57 ML/MIN
[2024-06-19 22:16] LABS: ETHANOL < 10 MG/DL (<10)
[2024-06-19 23:24] LABS: MAGNESIUM 2.3 MG/DL (1.5-2.4)
[2024-06-19 23:30] LABS: VALPROATE 117 UG/ML (50-100)
[2024-06-20] MEDS: normal saline 1000ml 1,000 ML IV ONE ×2 (02:25→02:52)
[2024-06-20 05:20] LABS: CALCIUM 8.7 MG/DL (8.5-10.1); MAGNESIUM 2.2 MG/DL (1.5-2.4)
[2024-06-20 05:40] VITALS: TEMP 98.7; O2SAT 98
[2024-06-20] MEDS: potassium Cl 20 mEq SR tablet PO STA (07:13)
[2024-06-20 07:46] VITALS: BP 102/70; PULSE 74; RESP 14
[2024-06-20 09:06] LABS: URINE AMPHETAMINE SCREEN POSITIVE (Neg); URINE BARBITUATE SCREEN NEGATIVE (Neg); URINE BENZODIAZEPINES SCREEN NEGATIVE (Neg); URINE CANNABINOID SCREEN NEGATIVE (Neg); URINE COCAINE SCREEN NEGATIVE (Neg); URINE METHADONE SCREEN NEGATIVE (Neg); URINE OPIATE SCREEN NEGATIVE (Neg); URINE PHENCYCLIDINE SCREEN NEGATIVE (Neg)
[2024-06-20 09:59] LABS: ALANINE AMINOTRANSFERASE 29 U/L (12-78); ALKALINE PHOSPHATASE 52 IU/L (46-116); ANION GAP 11 (8-16); ASPARTATE AMINO TRANSFERASE 22 U/L (10-37); BILIRUBIN,TOTAL 0.7 MG/DL (0.1-1.0); BLOOD UREA NITROGEN 26 MG/DL (7-18); BUN/CREATININE RATIO 27.1 (10.0-20.0); CALCIUM 8.7 MG/DL (8.5-10.1); CHLORIDE 107 MMOL/L (99-107); CREATININE 0.96 MG/DL (0.60-1.10); GLUCOSE 143 MG/DL (70-104); MAGNESIUM 2.2 MG/DL (1.5-2.4); POTASSIUM 3.5 MMOL/L (3.5-5.1); SALICYLATE 2.8 MG/DL (4.0-20.0); SODIUM 138 MMOL/L (135-145); TOTAL CARBON DIOXIDE 20.3 MMOL/L (24-32); VALPROATE 90 UG/ML (50-100); eCRCL 116 ML/MIN; eGFR 85 ML/MIN
[2024-06-20 10:06] LABS: ACETAMINOPHEN < 2.0 UG/ML (10-30)
[2024-06-20] MEDS ORDERED: RISP3TAB42 PO (12:40)
[2024-06-20] MEDS ORDERED: DIVA500T4 PO (12:40)
[2024-06-20 13:27] LABS: CALCIUM 9.1 MG/DL (8.5-10.1); MAGNESIUM 2.3 MG/DL (1.5-2.4)
== END 2024-06-20 14:07 | disposition home or self-care (01) ==
LOC: ER 21:08
DX: F32.A Depression, unspecified (principal); Z20.822 Contact with and (suspected) exposure to COVID-19; Z91.148 Patient's other noncompliance with medication regimen for other reason; I10 Essential (primary) hypertension; G89.29 Other chronic pain; M54.9 Dorsalgia, unspecified; F41.9 Anxiety disorder, unspecified; F15.90 Other stimulant use, unspecified, uncomplicated; Z88.8 Allergy status to other drugs, medicaments and biological substances; Z79.1 Long term (current) use of non-steroidal anti-inflammatories (NSAID); Z79.899 Other long term (current) drug therapy
CPT/HCPCS: 36415; 80048; 80053; 80164; 80305; 80320; 80329; 82140; 82310; 83735; 84132; 85025; 87811; 93005; 96360; 99285; J7030

== ENCOUNTER 2024-06-22 13:12 | Emergency (ER) | payer MEDICAID ==
[~2024-06-22] VITALS: Ht 188 cm; Wt 98.5 kg
[~2024-06-22 13:12] MED LIST changes: +DIVA500T4 PO; -DIVA500T9 PO; +RISP3TAB42 PO; -RISP3TAB77 PO
== END 2024-06-23 09:09 | disposition left against medical advice (07) ==
LOC: ER 13:13
DX: M54.2 Cervicalgia (principal); M54.9 Dorsalgia, unspecified; Z53.21 Procedure and treatment not carried out due to patient leaving prior to being seen by health care provider

== ENCOUNTER 2024-06-27 22:13 | Emergency (ER) | payer MEDICAID ==
[~2024-06-27] VITALS: Ht 190.5 cm; Wt 81.8 kg
[2024-06-27 22:40] VITALS: TEMP 98.9
[2024-06-27] MEDS ORDERED: TOPI-95 PO (23:27)
[2024-06-27] MEDS ORDERED: DIVA-52 PO (23:27)
[2024-06-27] MEDS ORDERED: RISP3TAB77 PO (23:27)
[2024-06-27 23:44] VITALS: BP 143/81; PULSE 90; O2SAT 98
[2024-06-27 23:49] VITALS: RESP 17
[2024-06-27] MEDS: HYDROcodone/acetaminophen 5mg/325mg tablet PO ONE (23:49)
== END 2024-06-27 23:50 | disposition home or self-care (01) ==
LOC: ER 22:13
DX: M54.9 Dorsalgia, unspecified (principal); M25.559 Pain in unspecified hip; I10 Essential (primary) hypertension; F31.9 Bipolar disorder, unspecified; F15.90 Other stimulant use, unspecified, uncomplicated; Z88.8 Allergy status to other drugs, medicaments and biological substances; Z79.1 Long term (current) use of non-steroidal anti-inflammatories (NSAID); Z79.899 Other long term (current) drug therapy
CPT/HCPCS: 99283

== ENCOUNTER 2024-06-29 15:06 | Emergency (ER) | payer MEDICAID ==
[~2024-06-29 15:06] MED LIST changes: +DIVA-52 PO; +RISP3TAB77 PO
== END 2024-06-29 15:10 | disposition left against medical advice (07) ==
LOC: ER 15:07
DX: Z00.00 Encounter for general adult medical examination without abnormal findings (principal); Z53.21 Procedure and treatment not carried out due to patient leaving prior to being seen by health care provider

== ENCOUNTER 2024-07-01 10:24 | Emergency (ER) | payer MEDICAID ==
[~2024-07-01] VITALS: Ht 182.9 cm; Wt 95.2 kg
[2024-07-01 10:32] VITALS: BP 143/107; PULSE 130; RESP 18; TEMP 98.2; O2SAT 98
[2024-07-01] MEDS ORDERED: RISP3TAB77 PO (11:00)
[2024-07-01] MEDS ORDERED: TOPI-95 PO (11:00)
[2024-07-01] MEDS ORDERED: DIVA-52 PO (11:00)
[2024-07-02] MEDS ORDERED: DIVA125T31 PO (13:44)
== END 2024-07-01 11:12 | disposition home or self-care (01) ==
LOC: ER 10:25
DX: F31.9 Bipolar disorder, unspecified (principal); Z76.0 Encounter for issue of repeat prescription; I10 Essential (primary) hypertension; G89.29 Other chronic pain; M54.9 Dorsalgia, unspecified; F41.9 Anxiety disorder, unspecified; F20.9 Schizophrenia, unspecified; F28 Other psychotic disorder not due to a substance or known physiological condition; F10.90 Alcohol use, unspecified, uncomplicated; F15.90 Other stimulant use, unspecified, uncomplicated; Z59.00 Homelessness unspecified; Z56.0 Unemployment, unspecified; Z88.8 Allergy status to other drugs, medicaments and biological substances; Z79.899 Other long term (current) drug therapy
CPT/HCPCS: 99281

== ENCOUNTER 2024-07-02 07:02 | Emergency (ER) | payer MEDICAID ==
[~2024-07-02] VITALS: Ht 188 cm; Wt 94.5 kg
[2024-07-02 07:05] VITALS: BP 124/67; PULSE 102; TEMP 97.8; O2SAT 99
[2024-07-02 07:47] LABS: EOSINOPHILS # (AUTO) 0.2 X10'3 (0-0.9); HEMOGLOBIN 14.5 g/dl (14.0-17.9); LYMPHOCYTES # (AUTO) 3.1 X10'3 (1.1-4.8); MEAN PLATELET VOLUME 7.1 FL (7.4-10.4)
[2024-07-02 07:48] LABS: BASOPHILS % (AUTO) 0.3 % (0-1); EOSINOPHILS % (AUTO) 1.9 % (0-6); HEMATOCRIT 42.4 % (42.0-52.0); LYMPHOCYTES % (AUTO) 26.5 % (21-51); MEAN CORPUSCULAR HEMOGLOBIN 30.2 PG (27.0-31.0); MEAN CORPUSCULAR HGB CONC 34.2 g/dL (33.0-36.5); MEAN CORPUSCULAR VOLUME 88.3 FL (78-98); MONOCYTES # (AUTO) 0.9 X10'3 (0-0.9); MONOCYTES % (AUTO) 7.8 % (2-12); NEUTROPHILS # (AUTO) 7.5 X10'3 (1.8-7.7); NEUTROPHILS % (AUTO) 63.5 % (42-75); PLATELET COUNT 658 X10'3 (140-440); RED BLOOD COUNT 4.81 X10'6 (4.70-6.10); RED CELL DISTRIBUTION WIDTH 14.2 % (11.5-14.5); WHITE BLOOD COUNT 11.8 X10'3 (4.5-11.0)
[2024-07-02 07:53] LABS: ALBUMIN 3.7 G/DL (3.4-5.0); ANION GAP 8 (8-16); BLOOD UREA NITROGEN 16 MG/DL (7-18); BUN/CREATININE RATIO 16.2 (10.0-20.0); CHLORIDE 103 MMOL/L (99-107); CREATININE 0.99 MG/DL (0.60-1.10); ETHANOL < 10 MG/DL (<10); GLUCOSE 110 MG/DL (70-104); POTASSIUM 4.1 MMOL/L (3.5-5.1); SODIUM 138 MMOL/L (135-145); TOTAL CARBON DIOXIDE 27.3 MMOL/L (24-32); eCRCL 108 ML/MIN; eGFR 81 ML/MIN
[2024-07-02 09:11] LABS: LARGE PLATELETS FEW; PLATELET ESTIMATE INCREASED; TOTAL CELLS COUNTED 100
[2024-07-02 10:16] LABS: URINE AMPHETAMINE SCREEN POSITIVE (Neg); URINE BARBITUATE SCREEN NEGATIVE (Neg); URINE BENZODIAZEPINES SCREEN NEGATIVE (Neg); URINE CANNABINOID SCREEN NEGATIVE (Neg); URINE COCAINE SCREEN NEGATIVE (Neg); URINE METHADONE SCREEN NEGATIVE (Neg); URINE OPIATE SCREEN NEGATIVE (Neg); URINE PHENCYCLIDINE SCREEN NEGATIVE (Neg)
[2024-07-02 12:30] VITALS: RESP 18
[2024-07-02] MEDS ORDERED: DIVA125T31 PO (13:44)
[2024-07-02] MEDS: LORazepam 1 MG tablet PO ONE (15:22)
[2024-07-02] MEDS ORDERED: divalproex sod 125mg tablet.DR PO SCH (20:00)
== END 2024-07-02 15:35 | disposition home or self-care (01) ==
LOC: ER 07:03
DX: F19.10 Other psychoactive substance abuse, uncomplicated (principal); Z20.822 Contact with and (suspected) exposure to COVID-19; R44.2 Other hallucinations; I10 Essential (primary) hypertension; G89.29 Other chronic pain; M54.9 Dorsalgia, unspecified; F41.9 Anxiety disorder, unspecified; F15.90 Other stimulant use, unspecified, uncomplicated; Z88.8 Allergy status to other drugs, medicaments and biological substances; Z79.899 Other long term (current) drug therapy
CPT/HCPCS: 36415; 80048; 80305; 80320; 85007; 85025; 87811; 99284

== ENCOUNTER 2024-07-03 11:31 | Emergency (ER) | payer MEDICAID ==
[~2024-07-03] VITALS: Ht 190.5 cm; Wt 127.3 kg
[~2024-07-03 11:31] MED LIST changes: -DIVA-52 PO; +DIVA125T31 PO; -DIVA500T4 PO; -GABA300C PO; -RISP3TAB42 PO; -RISP3TAB77 PO; -TOPI-95 PO
[2024-07-03 12:43] LABS: BILIRUBIN,URINE NEGATIVE (Neg); CLARITY,URINE CLEAR (Clear); COLOR,URINE YELLOW (Yellow); GLUCOSE, URINE NEGATIVE (Neg); KETONES,URINE TRACE mg/dl (Neg); LEUKOCYTE ESTERASE ,URINE NEGATIVE (Neg); OCCULT BLOOD,URINE NEGATIVE (Neg); PROTEIN,URINE NEGATIVE (Neg); UROBILINOGEN,URINE 0.2 E.U/dL (0.2-1.0)
[2024-07-03 12:51] LABS: URINE AMPHETAMINE SCREEN POSITIVE (Neg); URINE BARBITUATE SCREEN NEGATIVE (Neg); URINE BENZODIAZEPINES SCREEN NEGATIVE (Neg); URINE CANNABINOID SCREEN NEGATIVE (Neg); URINE COCAINE SCREEN NEGATIVE (Neg); URINE METHADONE SCREEN NEGATIVE (Neg); URINE OPIATE SCREEN NEGATIVE (Neg); URINE PHENCYCLIDINE SCREEN NEGATIVE (Neg)
[2024-07-03 12:59] LABS: BASOPHILS % (AUTO) 0.3 % (0-1); EOSINOPHILS # (AUTO) 0.2 X10'3 (0-0.9); EOSINOPHILS % (AUTO) 1.5 % (0-6); HEMOGLOBIN 14.4 g/dl (14.0-17.9); MONOCYTES # (AUTO) 0.5 X10'3 (0-0.9)
[2024-07-03 13:00] LABS: HEMATOCRIT 42.8 % (42.0-52.0); LYMPHOCYTES # (AUTO) 3.3 X10'3 (1.1-4.8); LYMPHOCYTES % (AUTO) 26.7 % (21-51); MEAN CORPUSCULAR HEMOGLOBIN 29.9 PG (27.0-31.0); MEAN CORPUSCULAR HGB CONC 33.7 g/dL (33.0-36.5); MEAN CORPUSCULAR VOLUME 88.7 FL (78-98); MEAN PLATELET VOLUME 7.3 FL (7.4-10.4); MONOCYTES % (AUTO) 4.3 % (2-12); NEUTROPHILS # (AUTO) 8.4 X10'3 (1.8-7.7); NEUTROPHILS % (AUTO) 67.2 % (42-75); PLATELET COUNT 687 X10'3 (140-440); RED BLOOD COUNT 4.82 X10'6 (4.70-6.10); RED CELL DISTRIBUTION WIDTH 14.4 % (11.5-14.5); WHITE BLOOD COUNT 12.4 X10'3 (4.5-11.0)
[2024-07-03 13:03] LABS: NITRITES, URINE NEGATIVE (Neg); UA COLLECTION TYPE VOIDED
[2024-07-03 13:12] LABS: ALBUMIN 3.5 G/DL (3.4-5.0); ANION GAP 7 (8-16); BLOOD UREA NITROGEN 23 MG/DL (7-18); BUN/CREATININE RATIO 22.3 (10.0-20.0); CALCIUM 8.8 MG/DL (8.5-10.1); CHLORIDE 103 MMOL/L (99-107); CREATININE 1.03 MG/DL (0.60-1.10); ETHANOL < 10 MG/DL (<10); GLUCOSE 117 MG/DL (70-104); POTASSIUM 3.6 MMOL/L (3.5-5.1); SODIUM 138 MMOL/L (135-145); TOTAL CARBON DIOXIDE 27.8 MMOL/L (24-32); eCRCL 107 ML/MIN; eGFR 78 ML/MIN
[2024-07-03] MEDS: divalproex sod 125mg tablet.DR PO SCH (20:33)
[2024-07-04] MEDS: diphenhydrAMINE 50 mg/ml inj IM ONE (04:46)
[2024-07-04] MEDS: haloperidol lactate 5mg/ml inj IM ONE (04:46)
[2024-07-04] MEDS: LORazepam 2 mg/ml vial IM ONE (04:46)
[2024-07-04 12:55] VITALS: BP 94/60; PULSE 82; RESP 18; TEMP 97.7; O2SAT 90
[2024-07-08] MEDS ORDERED: TOPI-95 PO (22:35)
[2024-07-08] MEDS ORDERED: RISP3TAB77 PO (22:37)
[2024-07-08] MEDS ORDERED: TRAZ-251 PO (22:37)
[2024-07-08] MEDS ORDERED: DIVA500T5 PO (22:38)
== END 2024-07-04 12:50 | disposition home or self-care (01) ==
LOC: ER 11:32
DX: R45.851 Suicidal ideations (principal); F99 Mental disorder, not otherwise specified; I10 Essential (primary) hypertension; G89.29 Other chronic pain; M54.9 Dorsalgia, unspecified; F41.9 Anxiety disorder, unspecified; F31.9 Bipolar disorder, unspecified; F20.9 Schizophrenia, unspecified; F15.90 Other stimulant use, unspecified, uncomplicated; F10.90 Alcohol use, unspecified, uncomplicated; Z20.822 Contact with and (suspected) exposure to COVID-19; Z59.00 Homelessness unspecified; Z56.0 Unemployment, unspecified; Z88.8 Allergy status to other drugs, medicaments and biological substances; Z79.899 Other long term (current) drug therapy
CPT/HCPCS: 36415; 80048; 80305; 80320; 81003; 85025; 87811; 96372; 99284; J1200; J1630; J2060

== ENCOUNTER 2024-07-05 09:55 | Emergency (ER) | payer MEDICAID ==
[~2024-07-05] VITALS: Ht 190.5 cm; Wt 96.6 kg
[2024-07-05 09:59] VITALS: TEMP 98.8
[2024-07-05 10:36] VITALS: BP 118/81; PULSE 77; RESP 16; O2SAT 99
[2024-07-08] MEDS ORDERED: TOPI-95 PO (22:35)
[2024-07-08] MEDS ORDERED: RISP3TAB77 PO (22:37)
[2024-07-08] MEDS ORDERED: TRAZ-251 PO (22:37)
[2024-07-08] MEDS ORDERED: DIVA500T5 PO (22:38)
== END 2024-07-05 10:44 | disposition left against medical advice (07) ==
LOC: ER 09:56
DX: R45.6 Violent behavior (principal); I10 Essential (primary) hypertension; G89.29 Other chronic pain; M54.9 Dorsalgia, unspecified; F31.9 Bipolar disorder, unspecified; F15.90 Other stimulant use, unspecified, uncomplicated; Z88.8 Allergy status to other drugs, medicaments and biological substances; Z79.1 Long term (current) use of non-steroidal anti-inflammatories (NSAID); Z79.899 Other long term (current) drug therapy
CPT/HCPCS: 99284

== ENCOUNTER 2024-07-07 21:41 | Emergency (ER) | payer MEDICAID ==
[~2024-07-07] VITALS: Ht 190.5 cm; Wt 94.3 kg
[2024-07-07 22:31] VITALS: BP 138/80; PULSE 90; RESP 17; TEMP 98; O2SAT 98
[2024-07-08] MEDS ORDERED: TOPI-95 PO (22:35)
[2024-07-08] MEDS ORDERED: RISP3TAB77 PO (22:37)
[2024-07-08] MEDS ORDERED: TRAZ-251 PO (22:37)
[2024-07-08] MEDS ORDERED: DIVA500T5 PO (22:38)
== END 2024-07-07 22:34 | disposition home or self-care (01) ==
LOC: ER 21:42
DX: Z04.6 Encounter for general psychiatric examination, requested by authority (principal); K62.5 Hemorrhage of anus and rectum; I10 Essential (primary) hypertension; G89.29 Other chronic pain; M54.9 Dorsalgia, unspecified; F41.9 Anxiety disorder, unspecified; F31.9 Bipolar disorder, unspecified; F15.90 Other stimulant use, unspecified, uncomplicated; Z88.8 Allergy status to other drugs, medicaments and biological substances; Z79.1 Long term (current) use of non-steroidal anti-inflammatories (NSAID)
CPT/HCPCS: 99281

== ENCOUNTER 2024-07-14 21:25 | Emergency (ER) | payer MEDICAID ==
[~2024-07-14] VITALS: Ht 182.9 cm; Wt 75.0 kg
[~2024-07-14 21:25] MED LIST changes: -DIVA125T31 PO; +DIVA500T5 PO; +RISP3TAB77 PO; +TOPI-95 PO; +TRAZ-251 PO
[2024-07-14] MEDS ORDERED: GABA-530 PO (22:05)
[2024-07-14 22:24] LABS: BASOPHILS # (AUTO) 0.1 X10'3 (0-0.2); BASOPHILS % (AUTO) 0.5 % (0-1); EOSINOPHILS # (AUTO) 0.4 X10'3 (0-0.9); EOSINOPHILS % (AUTO) 3.3 % (0-6); HEMOGLOBIN 14.6 g/dl (14.0-17.9); LYMPHOCYTES # (AUTO) 2.5 X10'3 (1.1-4.8); LYMPHOCYTES % (AUTO) 23.7 % (21-51); MEAN CORPUSCULAR HEMOGLOBIN 29.2 PG (27.0-31.0); MEAN CORPUSCULAR HGB CONC 33.1 g/dL (33.0-36.5); MEAN CORPUSCULAR VOLUME 88.2 FL (78-98); MEAN PLATELET VOLUME 7.8 FL (7.4-10.4); MONOCYTES % (AUTO) 9.5 % (2-12); NEUTROPHILS # (AUTO) 6.8 X10'3 (1.8-7.7); PLATELET COUNT 590 X10'3 (140-440); RED BLOOD COUNT 4.99 X10'6 (4.70-6.10); RED CELL DISTRIBUTION WIDTH 14.8 % (11.5-14.5); WHITE BLOOD COUNT 10.7 X10'3 (4.5-11.0)
[2024-07-14 22:38] LABS: ALANINE AMINOTRANSFERASE 28 U/L (12-78); ALBUMIN 4.1 G/DL (3.4-5.0); ALBUMIN/GLOBULIN RATIO 1.2 (1.1-1.5); ALKALINE PHOSPHATASE 56 IU/L (46-116); ANION GAP 12 (8-16); ASPARTATE AMINO TRANSFERASE 22 U/L (10-37); BLOOD UREA NITROGEN 34 MG/DL (7-18); BUN/CREATININE RATIO 30.4 (10.0-20.0); CALCIUM 9.5 MG/DL (8.5-10.1); CHLORIDE 105 MMOL/L (99-107); CREATININE 1.12 MG/DL (0.60-1.10); GLUCOSE 88 MG/DL (70-104); POTASSIUM 3.7 MMOL/L (3.5-5.1); SODIUM 141 MMOL/L (135-145); TOTAL CARBON DIOXIDE 24.4 MMOL/L (24-32); TOTAL PROTEIN 7.4 G/DL (6.4-8.2); eCRCL 87 ML/MIN; eGFR 71 ML/MIN
[2024-07-14 22:48] LABS: ETHANOL < 10 MG/DL (<10); THYROID STIMULATING HORMONE 1.22 ulU/ml (0.34-4.50)
[2024-07-15 06:10] LABS: BILIRUBIN,URINE NEGATIVE (Neg); CLARITY,URINE SLIGHTLY CLOUDY (Clear); COLOR,URINE YELLOW (Yellow); GLUCOSE, URINE NEGATIVE (Neg); KETONES,URINE TRACE mg/dl (Neg); LEUKOCYTE ESTERASE ,URINE NEGATIVE (Neg); NITRITES, URINE NEGATIVE (Neg); OCCULT BLOOD,URINE NEGATIVE (Neg); PROTEIN,URINE NEGATIVE (Neg); UROBILINOGEN,URINE 0.2 E.U/dL (0.2-1.0)
[2024-07-15 06:21] LABS: UA COLLECTION TYPE CLN CATCH MIDSTREAM; URINE AMPHETAMINE SCREEN POSITIVE (Neg); URINE BARBITUATE SCREEN NEGATIVE (Neg); URINE BENZODIAZEPINES SCREEN NEGATIVE (Neg); URINE CANNABINOID SCREEN NEGATIVE (Neg); URINE COCAINE SCREEN NEGATIVE (Neg); URINE METHADONE SCREEN NEGATIVE (Neg); URINE OPIATE SCREEN NEGATIVE (Neg); URINE PHENCYCLIDINE SCREEN NEGATIVE (Neg)
[2024-07-15 06:22] LABS: MUCUS STRANDS MANY /LPF (Neg)
[2024-07-15 06:23] LABS: AMORPHOUS URATES 1+; TRANSITIONAL EPI CELLS,URINE FEW /HPF
[2024-07-15 06:24] LABS: BACTERIA,URINE FEW /HPF (Neg); RBC,URINE 0-2 /HPF (0-2); SQUAMOUS EPITHELIAL CELL,UR FEW /LPF (FEW)
[2024-07-15] MEDS: haloperidol lactate 5mg/ml inj ONE (07:16)
[2024-07-15] MEDS: LORazepam 2 mg/ml vial ONE (07:17)
[2024-07-15] MEDS: diphenhydrAMINE 50 mg/ml inj ONE (07:18)
[2024-07-15] MEDS: topiramate 25mg tablet PO SCH (08:00)
[2024-07-15] MEDS: risperiDONE 0.5mg tablet PO SCH (08:37)
[2024-07-15] MEDS: risperiDONE 2mg tablet PO SCH (08:37)
[2024-07-15] MEDS: divalproex sodium 500mg tablet.DR PO SCH (08:38)
[2024-07-15] MEDS: gabapentin 300mg capsule PO SCH (08:38)
[2024-07-15] MEDS: traZODone 50mg tablet PO SCH (20:50)
[2024-07-16 07:42] VITALS: BP 105/65; PULSE 78; RESP 16; TEMP 98.3; O2SAT 98
[2024-07-16] MEDS: nicotine 14mg patch - 24hr TD SCH (08:20)
== END 2024-07-16 09:09 | disposition left against medical advice (07) ==
LOC: ER 21:26
DX: F32.A Depression, unspecified (principal); Z20.822 Contact with and (suspected) exposure to COVID-19; F20.9 Schizophrenia, unspecified; F29 Unspecified psychosis not due to a substance or known physiological condition; I10 Essential (primary) hypertension; G89.29 Other chronic pain; M54.9 Dorsalgia, unspecified; F41.9 Anxiety disorder, unspecified; F15.90 Other stimulant use, unspecified, uncomplicated; Z88.8 Allergy status to other drugs, medicaments and biological substances; Z79.899 Other long term (current) drug therapy; Z79.1 Long term (current) use of non-steroidal anti-inflammatories (NSAID)
CPT/HCPCS: 36415; 80053; 80305; 80320; 81001; 82948; 84443; 85025; 87811; 99285; J1200; J1630; J2060

== ENCOUNTER 2024-07-24 23:33 | Emergency (ER) | payer MEDICAID ==
[~2024-07-24] VITALS: Ht 195.6 cm; Wt 95.2 kg
[~2024-07-24 23:33] MED LIST changes: +GABA-530 PO
[2024-07-24 23:43] VITALS: BP 125/84; PULSE 77; RESP 16; TEMP 98.4; O2SAT 98
== END 2024-07-25 02:28 | disposition left against medical advice (07) ==
LOC: ER 23:34
DX: R50.9 Fever, unspecified (principal); R51.9 Headache, unspecified; R53.81 Other malaise; Z53.21 Procedure and treatment not carried out due to patient leaving prior to being seen by health care provider

== ENCOUNTER 2024-07-31 06:56 | Inpatient (IN) | payer MEDICAID ==
[~2024-07-31] VITALS: Ht 190.5 cm; Wt 90.9 kg
[2024-07-31] MEDS: normal saline 1000ML IV soln IVB ONE ×2 (07:25→08:30)
[2024-07-31 07:48] LABS: BASOPHILS % (AUTO) 0.1 % (0-1); EOSINOPHILS % (AUTO) 0 % (0-6); HEMATOCRIT 43.5 % (42.0-52.0); HEMOGLOBIN 14.9 g/dl (14.0-17.9); LYMPHOCYTES # (AUTO) 0.9 X10'3 (1.1-4.8); LYMPHOCYTES % (AUTO) 3.3 % (21-51); MEAN CORPUSCULAR HEMOGLOBIN 30.3 PG (27.0-31.0); MEAN CORPUSCULAR HGB CONC 34.3 g/dL (33.0-36.5); MEAN CORPUSCULAR VOLUME 88.5 FL (78-98); MEAN PLATELET VOLUME 8.4 FL (7.4-10.4); MONOCYTES # (AUTO) 1.8 X10'3 (0-0.9); MONOCYTES % (AUTO) 6.4 % (2-12); NEUTROPHILS # (AUTO) 25.3 X10'3 (1.8-7.7); NEUTROPHILS % (AUTO) 90.2 % (42-75); PLATELET COUNT 466 X10'3 (140-440); RED BLOOD COUNT 4.91 X10'6 (4.70-6.10); RED CELL DISTRIBUTION WIDTH 14.9 % (11.5-14.5)
[2024-07-31 07:51] LABS: ALBUMIN 3.4 G/DL (3.4-5.0); ANION GAP 13 (8-16); BLOOD UREA NITROGEN 30 MG/DL (7-18); BUN/CREATININE RATIO 19.7 (10.0-20.0); CALCIUM 9.4 MG/DL (8.5-10.1); CHLORIDE 100 MMOL/L (99-107); CREATININE 1.52 MG/DL (0.60-1.10); GLUCOSE 101 MG/DL (70-104); POTASSIUM 3.6 MMOL/L (3.5-5.1); SODIUM 133 MMOL/L (135-145); TOTAL CARBON DIOXIDE 20.5 MMOL/L (24-32); eCRCL 73 ML/MIN; eGFR 50 ML/MIN
[2024-07-31] MEDS: CefTRIAXone 2gm/D5W 50ml BAG 50 ML IV ONE (08:06)
[2024-07-31 08:21] LABS: PLATELET ESTIMATE INCREASED; TOTAL CELLS COUNTED 100
[2024-07-31] MEDS: azithromycin/NS 500mg/250ml 250 ML IV ONE (08:38)
[2024-07-31 08:49] LABS: PRO BRAIN NATRIURETIC PEPTIDE 374 PG/ML (0-125)
[2024-07-31] MEDS: acetaminophen 1,000mg/100ml IV 100 ML IV ONE (09:43)
[2024-07-31] MEDS ORDERED: mag hydrox/Alum hydrox/simeth 30ml oral suspension PO PRN (10:15)
[2024-07-31] MEDS ORDERED: potassium Cl 40MEQ/1/2NS 520ml 520 ML IV PRN (10:15)
[2024-07-31] MEDS ORDERED: magnesium hydroxide 30ml (MOM) UD suspension PO PRN (10:15)
[2024-07-31] MEDS ORDERED: ondansetron/PF 4mg/2ml inj IV PRN (10:15)
[2024-07-31] MEDS ORDERED: magnesium Cl slow-release 64mg tablet PO PRN (10:15)
[2024-07-31] MEDS ORDERED: magnesium sulf-water 2g/50mL 50 ML IV PRN (10:15)
[2024-07-31] MEDS ORDERED: potassium Cl 20 mEq SR tablet PO PRN ×2 (10:15)
[2024-07-31] MEDS ORDERED: magnesium sulf-water 4G/100mL 100 ML IV PRN (10:15)
[2024-07-31] MEDS ORDERED: albuterol 2.5 MG/3 ML nebule NEB PRN (10:25)
[2024-07-31] MEDS ORDERED: ipratropium/albuterol 3ml nebule NEB PRN (10:25)
[2024-07-31] MEDS: normal saline 1000ml 1,000 ML IV SCH (10:36)
--- NOTE | 2024-07-31 12:14 | NUR ---
Patient up to use the bathroom, ambulated independently.
--- NOTE | 2024-07-31 12:37 | NUR ---
Patient states he had diarrhea this morning and could not clean himself up. Patient extremely weak. RN helped patient get cleaned up.
[2024-07-31 13:34] VITALS: PULSE 100; RESP 16; O2SAT 99
--- NOTE | 2024-07-31 16:37 | NUR ---
Called the CASH REGISTER SERVICER regarding patient's increasingly high heart rate. She will put new orders in.
[2024-07-31] MEDS: diltiazem 5mg/ml 5ml inj. IV ONE (17:01)
[2024-07-31] MEDS: acetaminophen 325mg tablet PO PRN (18:29)
--- NOTE | 2024-07-31 18:30 | NUR ---
ns running 150/hr
--- NOTE | 2024-07-31 19:36 | NUR ---
ADMIT MD DARBY THORPE CALLED DUE TO VITAL SIGNS. INFORMED PATIENTS TEMP 100.1 POST 1 HR 650MG TYLENOL , WELL HR 104-110BPM, AND BP 91/46 MAP 56. TELEPHONE ORDER GIVEN FOR 50ML NS AT THIS TIME.
[2024-07-31] MEDS: normal saline 500ml IV soln 500 ML IV ONE (19:46)
[2024-07-31] MEDS: heparin, porcine 5000 units/ml vial SQ SCH (20:15)
[2024-07-31] MEDS: K and/or MAG REPLACEMENT MC SCH (20:16)
[2024-07-31] MEDS: docusate sod 100mg capsule PO SCH (20:16)
[2024-07-31 21:05] VITALS: PULSE 93; RESP 16; O2SAT 94
[2024-08-01 02:21] LABS: BASOPHILS # (AUTO) 0.1 X10'3 (0-0.2); BASOPHILS % (AUTO) 0.4 % (0-1); EOSINOPHILS # (AUTO) 0.1 X10'3 (0-0.9); EOSINOPHILS % (AUTO) 0.6 % (0-6); HEMATOCRIT 35.7 % (42.0-52.0); HEMOGLOBIN 11.7 g/dl (14.0-17.9); LYMPHOCYTES # (AUTO) 1.2 X10'3 (1.1-4.8); LYMPHOCYTES % (AUTO) 7.5 % (21-51); MEAN CORPUSCULAR HGB CONC 32.7 g/dL (33.0-36.5); MEAN CORPUSCULAR VOLUME 88.9 FL (78-98); MEAN PLATELET VOLUME 8.6 FL (7.4-10.4); NEUTROPHILS # (AUTO) 14.2 X10'3 (1.8-7.7); NEUTROPHILS % (AUTO) 85.5 % (42-75); PLATELET COUNT 352 X10'3 (140-440); RED BLOOD COUNT 4.02 X10'6 (4.70-6.10); RED CELL DISTRIBUTION WIDTH 14.6 % (11.5-14.5); WHITE BLOOD COUNT 16.6 X10'3 (4.5-11.0)
[2024-08-01 02:33] LABS: ALANINE AMINOTRANSFERASE 18 U/L (12-78); ALBUMIN 2.3 G/DL (3.4-5.0); ALBUMIN/GLOBULIN RATIO 0.7 (1.1-1.5); ALKALINE PHOSPHATASE 69 IU/L (46-116); ANION GAP 7 (8-16); ASPARTATE AMINO TRANSFERASE 18 U/L (10-37); BILIRUBIN,TOTAL 0.9 MG/DL (0.1-1.0); BLOOD UREA NITROGEN 28 MG/DL (7-18); BUN/CREATININE RATIO 25.5 (10.0-20.0); CALCIUM 8.5 MG/DL (8.5-10.1); CHLORIDE 108 MMOL/L (99-107); GLUCOSE 93 MG/DL (70-104); MAGNESIUM 1.8 MG/DL (1.5-2.4); SODIUM 138 MMOL/L (135-145); TOTAL CARBON DIOXIDE 22.6 MMOL/L (24-32); TOTAL PROTEIN 5.7 G/DL (6.4-8.2); eCRCL 100 ML/MIN; eGFR 72 ML/MIN
--- NOTE | 2024-08-01 05:43 | NUR ---
patient assisted to restoom at this time
[2024-08-01 07:10] VITALS: BP 89/57; PULSE 87; RESP 16; TEMP 97; O2SAT 100
--- NOTE | 2024-08-01 09:20 | NUR ---
pharmacy notified that patient does not have Rocephin or zithromax. Pharmacy stated that they will bring antibiotics to floor.
[2024-08-01 10:00] VITALS: BP 96/58; PULSE 88; RESP 18; TEMP 97.3; O2SAT 99
[2024-08-01] MEDS: CefTRIAXone 2gm/D5W 50ml BAG 50 ML IV SCH (10:05)
[2024-08-01] MEDS: azithromycin/NS 500mg/250ml 250 ML IV SCH (10:05)
[2024-08-01 10:33] VITALS: PULSE 87; RESP 16; O2SAT 99
--- NOTE | 2024-08-01 11:30 | NUR ---
patient was aggressive and yelling that IV in his arms were poison and was being disrespected. Security was called and said he was leaving and wanted his medication right now. I tried to tell the patient that we are here to take care of him and want him to get the treatment he needs to get better, but he demanded that I get the IV's and that he was leaving. I offered ativan for anxiety but patient refused any medications and still wanted the IV to be removed. I discontinued the IV with cannula intact and patient signed the [facility] paper. I contacted the nurse practitioner and she said that she would come talk to him, she was not able to convince him to stay. Patient left [facility] at 1130 and was escorted out with security.
[2024-08-02] MEDS ORDERED: DIVA-76 PO (08:34)
[2024-08-02] MEDS ORDERED: LEVO-65 PO (11:27)
== END 2024-08-01 11:30 | disposition left against medical advice (07) | DRG 720 ==
LOC: ER 06:57 → ED HOLD 10:23 → EDBEDREQ 14:31 → CANBEDREQ 14:32 → ORTHO 4S 08-01 07:10
PROVIDERS: ADMIT Nurse Practitioner Family; ATTEND Nurse Practitioner Family
DX: A41.9 Sepsis, unspecified organism (principal); N17.9 Acute kidney failure, unspecified; J18.9 Pneumonia, unspecified organism; F17.210 Nicotine dependence, cigarettes, uncomplicated; F31.9 Bipolar disorder, unspecified; F20.9 Schizophrenia, unspecified; G35 Multiple sclerosis; I10 Essential (primary) hypertension; F41.9 Anxiety disorder, unspecified; G89.29 Other chronic pain; M54.9 Dorsalgia, unspecified; Z53.21 Procedure and treatment not carried out due to patient leaving prior to being seen by health care provider; E86.0 Dehydration; F15.90 Other stimulant use, unspecified, uncomplicated; Z59.00 Homelessness unspecified; Z79.899 Other long term (current) drug therapy; Z88.8 Allergy status to other drugs, medicaments and biological substances
CPT/HCPCS: 36415; 71045; 71250; 80048; 80053; 83605; 83735; 83880; 84145; 84484; 85007; 85025; 87040; 87081; 93005; 94760; 99285; G0378; J0131; J0456; J0696; J1644; J3490; J7030; J7040

== ENCOUNTER 2024-08-01 20:07 | Emergency (ER) | payer MEDICAID ==
[~2024-08-01] VITALS: Ht 188 cm; Wt 90.9 kg
[2024-08-01 20:45] LABS: EOSINOPHILS # (AUTO) 0.3 X10'3 (0-0.9); HEMOGLOBIN 13.1 g/dl (14.0-17.9); MEAN PLATELET VOLUME 8.9 FL (7.4-10.4); RED CELL DISTRIBUTION WIDTH 14.8 % (11.5-14.5)
[2024-08-01 20:47] LABS: BASOPHILS # (AUTO) 0.1 X10'3 (0-0.2); BASOPHILS % (AUTO) 0.4 % (0-1); EOSINOPHILS % (AUTO) 2.1 % (0-6); LYMPHOCYTES # (AUTO) 1.7 X10'3 (1.1-4.8); LYMPHOCYTES % (AUTO) 11.9 % (21-51); MEAN CORPUSCULAR HEMOGLOBIN 29.5 PG (27.0-31.0); MEAN CORPUSCULAR HGB CONC 33.6 g/dL (33.0-36.5); MEAN CORPUSCULAR VOLUME 87.8 FL (78-98); MONOCYTES % (AUTO) 7.1 % (2-12); NEUTROPHILS # (AUTO) 11.3 X10'3 (1.8-7.7); NEUTROPHILS % (AUTO) 78.5 % (42-75); PLATELET COUNT 443 X10'3 (140-440); RED BLOOD COUNT 4.44 X10'6 (4.70-6.10); WHITE BLOOD COUNT 14.4 X10'3 (4.5-11.0)
[2024-08-01 20:53] LABS: ALBUMIN 2.9 G/DL (3.4-5.0); ANION GAP 13 (8-16); BLOOD UREA NITROGEN 26 MG/DL (7-18); BUN/CREATININE RATIO 27.7 (10.0-20.0); CALCIUM 9.6 MG/DL (8.5-10.1); CHLORIDE 110 MMOL/L (99-107); CREATININE 0.94 MG/DL (0.60-1.10); GLUCOSE 90 MG/DL (70-104); POTASSIUM 3.3 MMOL/L (3.5-5.1); SODIUM 142 MMOL/L (135-145); TOTAL CARBON DIOXIDE 18.6 MMOL/L (24-32); eCRCL 114 ML/MIN; eGFR 86 ML/MIN
[2024-08-01 21:38] LABS: ETHANOL < 10 MG/DL (<10)
[2024-08-01] MEDS: levoFLOXACIN 750MG TABLET PO ONE (21:40)
[2024-08-01] MEDS: olanzapine 10mg tablet PO ONE (21:40)
[2024-08-01] MEDS: normal saline 1000ml 1,000 ML IV ONE (21:41)
[2024-08-02] MEDS: MIDAZolam 5mg/ml 2ml vial IV ONE (00:11)
[2024-08-02] MEDS: normal saline 1000ml 1,000 ML IV ONE (00:49)
[2024-08-02 07:28] LABS: BILIRUBIN,URINE NEGATIVE (Neg); CLARITY,URINE SLIGHTLY CLOUDY (Clear); GLUCOSE, URINE NEGATIVE (Neg); KETONES,URINE TRACE mg/dl (Neg); LEUKOCYTE ESTERASE ,URINE NEGATIVE (Neg); OCCULT BLOOD,URINE NEGATIVE (Neg); PROTEIN,URINE 30 mg/dl (Neg); UROBILINOGEN,URINE 0.2 E.U/dL (0.2-1.0)
[2024-08-02 07:29] LABS: URINE AMPHETAMINE SCREEN POSITIVE (Neg); URINE BARBITUATE SCREEN NEGATIVE (Neg); URINE BENZODIAZEPINES SCREEN POSITIVE (Neg); URINE CANNABINOID SCREEN NEGATIVE (Neg); URINE COCAINE SCREEN NEGATIVE (Neg); URINE METHADONE SCREEN NEGATIVE (Neg); URINE OPIATE SCREEN POSITIVE (Neg); URINE PHENCYCLIDINE SCREEN NEGATIVE (Neg)
[2024-08-02 07:30] LABS: COLOR,URINE AMBER (Yellow); UA COLLECTION TYPE NON-SPECIFIED
[2024-08-02 07:32] LABS: NITRITES, URINE NEGATIVE (Neg)
[2024-08-02 07:34] LABS: BACTERIA,URINE FEW /HPF (Neg); MUCUS STRANDS MANY /LPF (Neg); RBC,URINE NONE SEEN /HPF (0-2)
[2024-08-02 07:35] LABS: HYALINE CASTS 0-3 /LPF (NEGATIVE); SQUAMOUS EPITHELIAL CELL,UR MODERATE /LPF (FEW)
[2024-08-02] MEDS ORDERED: DIVA-76 PO (08:34)
[2024-08-02] MEDS ORDERED: LEVO-65 PO (11:27)
[2024-08-02] MEDS: levoFLOXACIN 750MG TABLET PO SCH (11:30)
[2024-08-02] MEDS: gabapentin 100mg capsule PO SCH (13:00)
[2024-08-02 13:55] VITALS: BP 101/56; PULSE 72; RESP 16; TEMP 97.5; O2SAT 98
[2024-08-02] MEDS ORDERED: topiramate 25mg tablet PO SCH (20:00)
[2024-08-02] MEDS ORDERED: risperiDONE 0.5mg tablet PO SCH (20:00)
[2024-08-02] MEDS ORDERED: divalproex sodium 500mg tablet.DR PO SCH (20:00)
[2024-08-02] MEDS ORDERED: traZODone 50mg tablet PO SCH (21:00)
== END 2024-08-02 14:08 | disposition home or self-care (01) ==
LOC: ER 20:08
DX: F28 Other psychotic disorder not due to a substance or known physiological condition (principal); J16.8 Pneumonia due to other specified infectious organisms; I10 Essential (primary) hypertension; G89.29 Other chronic pain; M54.9 Dorsalgia, unspecified; F41.9 Anxiety disorder, unspecified; F31.9 Bipolar disorder, unspecified; F20.9 Schizophrenia, unspecified; F10.90 Alcohol use, unspecified, uncomplicated; F15.90 Other stimulant use, unspecified, uncomplicated; Z20.822 Contact with and (suspected) exposure to COVID-19; Z88.8 Allergy status to other drugs, medicaments and biological substances; Z79.899 Other long term (current) drug therapy; Z79.1 Long term (current) use of non-steroidal anti-inflammatories (NSAID); Z59.00 Homelessness unspecified; Z56.0 Unemployment, unspecified
CPT/HCPCS: 36415; 71045; 80048; 80320; 81001; 83605; 84145; 85025; 87040; 87088; 87811; 96361; 96374; 99285; J2250; J7030

== ENCOUNTER 2024-08-13 15:37 | Emergency (ER) | payer MEDICAID ==
[~2024-08-13] VITALS: Ht 188 cm; Wt 93.2 kg
[~2024-08-13 15:37] MED LIST changes: +DIVA-76 PO; -DIVA500T5 PO; +LEVO-65 PO
[2024-08-13 15:48] VITALS: BP 111/72; PULSE 100; RESP 16; O2SAT 99
[2024-08-13] MEDS ORDERED: CLIN-97 PO (17:41)
[2024-08-13 18:02] VITALS: TEMP 98.2
== END 2024-08-13 18:08 | disposition home or self-care (01) ==
LOC: ER 15:38
DX: K08.89 Other specified disorders of teeth and supporting structures (principal); K04.7 Periapical abscess without sinus; F10.90 Alcohol use, unspecified, uncomplicated; I10 Essential (primary) hypertension; G89.29 Other chronic pain; M54.9 Dorsalgia, unspecified; F41.9 Anxiety disorder, unspecified; F31.9 Bipolar disorder, unspecified; F20.9 Schizophrenia, unspecified; Z88.8 Allergy status to other drugs, medicaments and biological substances; Z79.899 Other long term (current) drug therapy; Z59.00 Homelessness unspecified; Z56.0 Unemployment, unspecified
CPT/HCPCS: 99283

== ENCOUNTER 2024-08-16 11:51 | Emergency (ER) | payer MEDICAID ==
[~2024-08-16] VITALS: Ht 190.5 cm; Wt 92.3 kg
[~2024-08-16 11:51] MED LIST changes: +CLIN-97 PO
[2024-08-16 11:56] VITALS: BP 112/77; PULSE 97; RESP 14; TEMP 98.2; O2SAT 97
[2024-08-16 13:35] LABS: URINE AMPHETAMINE SCREEN POSITIVE (Neg); URINE BARBITUATE SCREEN NEGATIVE (Neg); URINE BENZODIAZEPINES SCREEN NEGATIVE (Neg); URINE CANNABINOID SCREEN NEGATIVE (Neg); URINE COCAINE SCREEN NEGATIVE (Neg); URINE METHADONE SCREEN NEGATIVE (Neg); URINE OPIATE SCREEN NEGATIVE (Neg); URINE PHENCYCLIDINE SCREEN NEGATIVE (Neg)
== END 2024-08-16 14:13 | disposition home or self-care (01) ==
LOC: ER 11:52
DX: F19.10 Other psychoactive substance abuse, uncomplicated (principal); F15.90 Other stimulant use, unspecified, uncomplicated; F20.9 Schizophrenia, unspecified; I10 Essential (primary) hypertension; G89.29 Other chronic pain; M54.9 Dorsalgia, unspecified; F41.9 Anxiety disorder, unspecified; F31.9 Bipolar disorder, unspecified; F28 Other psychotic disorder not due to a substance or known physiological condition; F10.90 Alcohol use, unspecified, uncomplicated; Z88.8 Allergy status to other drugs, medicaments and biological substances; Z79.2 Long term (current) use of antibiotics; Z79.899 Other long term (current) drug therapy; Z59.00 Homelessness unspecified; Z56.0 Unemployment, unspecified
CPT/HCPCS: 80305; 99283

== ENCOUNTER 2024-09-27 16:15 | Emergency (ER) | payer MEDICAID ==
[~2024-09-27] VITALS: Ht 195.6 cm; Wt 72.6 kg
[2024-09-27 16:21] VITALS: BP 126/72; PULSE 92; RESP 14; TEMP 96.5; O2SAT 100
[2024-09-27] MEDS ORDERED: AMOX-580 PO (16:46)
== END 2024-09-27 17:22 | disposition home or self-care (01) ==
LOC: ER 16:16
DX: K08.89 Other specified disorders of teeth and supporting structures (principal); I10 Essential (primary) hypertension; G89.29 Other chronic pain; M54.9 Dorsalgia, unspecified; F20.9 Schizophrenia, unspecified; F41.9 Anxiety disorder, unspecified; F31.9 Bipolar disorder, unspecified; F17.210 Nicotine dependence, cigarettes, uncomplicated; F15.90 Other stimulant use, unspecified, uncomplicated; Z56.0 Unemployment, unspecified; Z59.00 Homelessness unspecified; Z79.2 Long term (current) use of antibiotics; Z79.899 Other long term (current) drug therapy; Z20.822 Contact with and (suspected) exposure to COVID-19
CPT/HCPCS: 36415; 87811; 99284

== ENCOUNTER 2024-09-29 01:17 | Emergency (ER) | payer MEDICAID ==
[~2024-09-29] VITALS: Ht 190.5 cm; Wt 78.0 kg
[~2024-09-29 01:17] MED LIST changes: +AMOX-580 PO
[2024-09-29 01:21] VITALS: BP 106/69; PULSE 86; TEMP 97.8; O2SAT 99
[2024-09-29 02:05] LABS: BASOPHILS # (AUTO) 0.1 X10'3 (0-0.2); BASOPHILS % (AUTO) 0.8 % (0-1); HEMOGLOBIN 14.2 g/dl (14.0-17.9)
[2024-09-29 02:07] LABS: EOSINOPHILS # (AUTO) 0.3 X10'3 (0-0.9); EOSINOPHILS % (AUTO) 3.3 % (0-6); HEMATOCRIT 41.5 % (42.0-52.0); LYMPHOCYTES # (AUTO) 3.4 X10'3 (1.1-4.8); LYMPHOCYTES % (AUTO) 32.2 % (21-51); MEAN CORPUSCULAR HEMOGLOBIN 29.8 PG (27.0-31.0); MEAN CORPUSCULAR HGB CONC 34.1 g/dL (33.0-36.5); MEAN CORPUSCULAR VOLUME 87.4 FL (78-98); MEAN PLATELET VOLUME 7.1 FL (7.4-10.4); MONOCYTES # (AUTO) 0.8 X10'3 (0-0.9); MONOCYTES % (AUTO) 7.2 % (2-12); NEUTROPHILS % (AUTO) 56.5 % (42-75); PLATELET COUNT 597 X10'3 (140-440); RED BLOOD COUNT 4.75 X10'6 (4.70-6.10); RED CELL DISTRIBUTION WIDTH 14.9 % (11.5-14.5); WHITE BLOOD COUNT 10.6 X10'3 (4.5-11.0)
[2024-09-29 02:19] LABS: ALANINE AMINOTRANSFERASE 27 U/L (12-78); ALBUMIN 3.6 G/DL (3.4-5.0); ALBUMIN/GLOBULIN RATIO 1.2 (1.1-1.5); ALKALINE PHOSPHATASE 59 IU/L (46-116); ANION GAP 8 (8-16); ASPARTATE AMINO TRANSFERASE 24 U/L (10-37); BILIRUBIN,TOTAL 0.5 MG/DL (0.1-1.0); BLOOD UREA NITROGEN 18 MG/DL (7-18); BUN/CREATININE RATIO 20.7 (10.0-20.0); CALCIUM 9.1 MG/DL (8.5-10.1); CHLORIDE 102 MMOL/L (99-107); CREATININE 0.87 MG/DL (0.60-1.10); GLUCOSE 79 MG/DL (70-104); POTASSIUM 3.8 MMOL/L (3.5-5.1); SODIUM 137 MMOL/L (135-145); TOTAL CARBON DIOXIDE 27.5 MMOL/L (24-32); TOTAL PROTEIN 6.5 G/DL (6.4-8.2); eCRCL 117 ML/MIN; eGFR > 90 ML/MIN
[2024-09-29 02:29] LABS: ETHANOL < 10 MG/DL (<10); THYROID STIMULATING HORMONE 1.21 ulU/ml (0.34-4.50)
[2024-09-29] MEDS: OLANZapine 5mg rapidly disint. tablet PO ONE (04:29)
[2024-09-29 06:45] VITALS: RESP 18
[2024-09-29 06:48] LABS: BILIRUBIN,URINE NEGATIVE (Neg); CLARITY,URINE CLEAR (Clear); COLOR,URINE YELLOW (Yellow); GLUCOSE, URINE NEGATIVE (Neg); KETONES,URINE TRACE mg/dl (Neg); LEUKOCYTE ESTERASE ,URINE NEGATIVE (Neg); NITRITES, URINE NEGATIVE (Neg); OCCULT BLOOD,URINE NEGATIVE (Neg); PH,URINE 7.5 (4.8-8.0); PROTEIN,URINE NEGATIVE (Neg); UROBILINOGEN,URINE 0.2 E.U/dL (0.2-1.0)
[2024-09-29 06:49] LABS: UA COLLECTION TYPE CLN CATCH MIDSTREAM
[2024-09-29 06:53] LABS: URINE AMPHETAMINE SCREEN POSITIVE (Neg); URINE BARBITUATE SCREEN NEGATIVE (Neg); URINE BENZODIAZEPINES SCREEN NEGATIVE (Neg); URINE CANNABINOID SCREEN NEGATIVE (Neg); URINE COCAINE SCREEN NEGATIVE (Neg); URINE METHADONE SCREEN NEGATIVE (Neg); URINE OPIATE SCREEN NEGATIVE (Neg); URINE PHENCYCLIDINE SCREEN NEGATIVE (Neg)
== END 2024-09-29 10:43 | disposition home or self-care (01) ==
LOC: ER 01:19
DX: F32.A Depression, unspecified (principal); R44.0 Auditory hallucinations; R44.1 Visual hallucinations; I10 Essential (primary) hypertension; F17.200 Nicotine dependence, unspecified, uncomplicated; Z88.0 Allergy status to penicillin; Z88.1 Allergy status to other antibiotic agents; Z88.8 Allergy status to other drugs, medicaments and biological substances; Z59.00 Homelessness unspecified; Z20.822 Contact with and (suspected) exposure to COVID-19
CPT/HCPCS: 36415; 80053; 80305; 80320; 81003; 84443; 85025; 87811; 99284

== ENCOUNTER 2024-10-03 06:04 | Emergency (ER) | payer MEDICAID | END 2024-10-03 06:17 | disposition left against medical advice (07) | LOC: ER 06:05 | DX: Z53.21 Procedure and treatment not carried out due to patient leaving prior to being seen by health care provider (principal) ==

== ENCOUNTER 2024-10-06 05:45 | Emergency (ER) | payer MEDICAID ==
[~2024-10-06] VITALS: Ht 190.5 cm; Wt 100.2 kg
[2024-10-06 05:51] VITALS: BP 141/68; PULSE 89; RESP 18; TEMP 98.2; O2SAT 98
[2024-10-06] MEDS ORDERED: ACET-1025 PO (16:36)
== END 2024-10-06 07:40 | disposition left against medical advice (07) ==
LOC: ER 05:47
DX: R69 Illness, unspecified (principal); Z53.21 Procedure and treatment not carried out due to patient leaving prior to being seen by health care provider

== ENCOUNTER 2024-10-06 15:43 | Emergency (ER) | payer MEDICAID ==
[~2024-10-06] VITALS: Ht 190.5 cm; Wt 81.8 kg
[2024-10-06 15:46] VITALS: BP 145/74; PULSE 96; RESP 18; O2SAT 98
[2024-10-06] MEDS ORDERED: ACET-1025 PO (16:36)
[2024-10-06] MEDS ORDERED: LORazepam 1 MG tablet PO ONE (16:40)
[2024-10-06] MEDS: acetaminophen 325mg tablet PO ONE (16:58)
[2024-10-06 17:00] VITALS: TEMP 97.8
== END 2024-10-06 17:02 | disposition home or self-care (01) ==
LOC: ER 15:44
DX: G44.209 Tension-type headache, unspecified, not intractable (principal); F19.10 Other psychoactive substance abuse, uncomplicated; I10 Essential (primary) hypertension; G89.29 Other chronic pain; F31.9 Bipolar disorder, unspecified; F20.9 Schizophrenia, unspecified; F15.90 Other stimulant use, unspecified, uncomplicated; Z88.8 Allergy status to other drugs, medicaments and biological substances; Z79.2 Long term (current) use of antibiotics; Z79.899 Other long term (current) drug therapy
CPT/HCPCS: 99282

== ENCOUNTER 2024-10-07 07:41 | Emergency (ER) | payer MEDICAID ==
[~2024-10-07] VITALS: Ht 189.2 cm; Wt 98.1 kg
[~2024-10-07 07:41] MED LIST changes: +ACET-1025 PO
[2024-10-07 07:50] VITALS: BP 121/56; PULSE 68; RESP 17; TEMP 98.3; O2SAT 100
== END 2024-10-07 10:15 | disposition left against medical advice (07) ==
LOC: ER 07:41
DX: J02.9 Acute pharyngitis, unspecified (principal); R51.9 Headache, unspecified; H57.10 Ocular pain, unspecified eye; R44.2 Other hallucinations; Z53.21 Procedure and treatment not carried out due to patient leaving prior to being seen by health care provider

== ENCOUNTER 2024-10-11 18:09 | Emergency (ER) | payer MEDICAID ==
[~2024-10-11] VITALS: Ht 185.4 cm; Wt 86.4 kg
[2024-10-11 18:27] VITALS: TEMP 98.7
[2024-10-11 20:09] VITALS: BP 148/77; PULSE 87; RESP 19; O2SAT 99
== END 2024-10-11 21:08 | disposition home or self-care (01) ==
LOC: ER 18:09
DX: R44.2 Other hallucinations (principal); I10 Essential (primary) hypertension; F41.9 Anxiety disorder, unspecified; F31.9 Bipolar disorder, unspecified; G89.29 Other chronic pain; M54.9 Dorsalgia, unspecified; F10.90 Alcohol use, unspecified, uncomplicated; F15.90 Other stimulant use, unspecified, uncomplicated; Z59.00 Homelessness unspecified; Z56.0 Unemployment, unspecified; Z88.8 Allergy status to other drugs, medicaments and biological substances; Z79.899 Other long term (current) drug therapy
CPT/HCPCS: 99281

== ENCOUNTER 2024-10-13 00:48 | Emergency (ER) | payer MEDICAID ==
[~2024-10-13] VITALS: Ht 190.5 cm; Wt 92.3 kg
[2024-10-13 01:10] VITALS: BP 200/162; PULSE 116; RESP 18; TEMP 98.7; O2SAT 99
== END 2024-10-13 03:31 | disposition home or self-care (01) ==
LOC: ER 00:49
DX: F41.9 Anxiety disorder, unspecified (principal); J39.8 Other specified diseases of upper respiratory tract; B97.89 Other viral agents as the cause of diseases classified elsewhere; Z88.8 Allergy status to other drugs, medicaments and biological substances; I10 Essential (primary) hypertension; G89.29 Other chronic pain; M54.9 Dorsalgia, unspecified; F31.9 Bipolar disorder, unspecified; F20.9 Schizophrenia, unspecified; F15.90 Other stimulant use, unspecified, uncomplicated; F10.90 Alcohol use, unspecified, uncomplicated; F17.210 Nicotine dependence, cigarettes, uncomplicated; Z59.00 Homelessness unspecified; Z79.899 Other long term (current) drug therapy; Z56.0 Unemployment, unspecified
CPT/HCPCS: 99281

== ENCOUNTER 2024-10-14 12:51 | Emergency (ER) | payer MEDICAID ==
[~2024-10-14] VITALS: Ht 188 cm; Wt 81.8 kg
[2024-10-14 13:22] LABS: BASOPHILS # (AUTO) 0.1 X10'3 (0-0.2); EOSINOPHILS # (AUTO) 0.2 X10'3 (0-0.9); HEMOGLOBIN 15.4 g/dl (14.0-17.9); LYMPHOCYTES # (AUTO) 2.7 X10'3 (1.1-4.8); MEAN PLATELET VOLUME 7.8 FL (7.4-10.4); MONOCYTES # (AUTO) 0.6 X10'3 (0-0.9)
[2024-10-14 13:24] LABS: BASOPHILS % (AUTO) 0.6 % (0-1); EOSINOPHILS % (AUTO) 2.4 % (0-6); HEMATOCRIT 46.5 % (42.0-52.0); LYMPHOCYTES % (AUTO) 28.9 % (21-51); MEAN CORPUSCULAR HEMOGLOBIN 29.4 PG (27.0-31.0); MEAN CORPUSCULAR HGB CONC 33.1 g/dL (33.0-36.5); MEAN CORPUSCULAR VOLUME 88.9 FL (78-98); MONOCYTES % (AUTO) 5.9 % (2-12); NEUTROPHILS # (AUTO) 5.9 X10'3 (1.8-7.7); NEUTROPHILS % (AUTO) 62.2 % (42-75); PLATELET COUNT 687 X10'3 (140-440); RED BLOOD COUNT 5.23 X10'6 (4.70-6.10); RED CELL DISTRIBUTION WIDTH 15.4 % (11.5-14.5); WHITE BLOOD COUNT 9.5 X10'3 (4.5-11.0)
[2024-10-14 13:45] LABS: ALBUMIN 3.7 G/DL (3.4-5.0); ANION GAP 10 (8-16); BLOOD UREA NITROGEN 26 MG/DL (7-18); BUN/CREATININE RATIO 22.8 (10.0-20.0); CALCIUM 9.6 MG/DL (8.5-10.1); CHLORIDE 106 MMOL/L (99-107); CREATININE 1.14 MG/DL (0.60-1.10); GLUCOSE 127 MG/DL (70-104); POTASSIUM 3.6 MMOL/L (3.5-5.1); SODIUM 143 MMOL/L (135-145); THYROID STIMULATING HORMONE 0.46 ulU/ml (0.34-4.50); TOTAL CARBON DIOXIDE 27.3 MMOL/L (24-32); eCRCL 94 ML/MIN; eGFR 69 ML/MIN
[2024-10-14 13:47] LABS: ETHANOL < 10 MG/DL (<10)
[2024-10-14 13:53] LABS: BILIRUBIN,URINE NEGATIVE (Neg); CLARITY,URINE CLEAR (Clear); COLOR,URINE YELLOW (Yellow); GLUCOSE, URINE NEGATIVE (Neg); KETONES,URINE NEGATIVE (Neg); LEUKOCYTE ESTERASE ,URINE NEGATIVE (Neg); NITRITES, URINE NEGATIVE (Neg); OCCULT BLOOD,URINE NEGATIVE (Neg); PROTEIN,URINE TRACE mg/dl (Neg); UROBILINOGEN,URINE 0.2 E.U/dL (0.2-1.0)
[2024-10-14 13:55] LABS: UA COLLECTION TYPE URINAL
[2024-10-14 13:57] LABS: URINE AMPHETAMINE SCREEN NEGATIVE (Neg); URINE BARBITUATE SCREEN NEGATIVE (Neg); URINE BENZODIAZEPINES SCREEN NEGATIVE (Neg); URINE CANNABINOID SCREEN NEGATIVE (Neg); URINE COCAINE SCREEN NEGATIVE (Neg); URINE METHADONE SCREEN NEGATIVE (Neg); URINE OPIATE SCREEN NEGATIVE (Neg); URINE PHENCYCLIDINE SCREEN NEGATIVE (Neg)
[2024-10-14 14:02] LABS: BACTERIA,URINE NONE SEEN /HPF (Neg); FINE GRANULAR CAST 0-3 /LPF (NEGATIVE); RBC,URINE 0-2 /HPF (0-2); SQUAMOUS EPITHELIAL CELL,UR FEW /LPF (FEW); WBC,URINE 0-4 /HPF (0-4)
[2024-10-14] MEDS: divalproex sodium 500mg tablet.DR PO SCH (19:11)
[2024-10-14] MEDS: risperiDONE 0.5mg tablet PO SCH (19:12)
[2024-10-14] MEDS: topiramate 25mg tablet PO SCH (19:17)
[2024-10-14] MEDS: gabapentin 300mg capsule PO SCH (19:17)
[2024-10-14] MEDS: traZODone 50mg tablet PO SCH (19:17)
[2024-10-14] MEDS: haloperidol lactate 5mg/ml inj ONE (19:51)
[2024-10-14] MEDS: diphenhydrAMINE 50 mg/ml inj ONE (19:51)
[2024-10-14] MEDS: LORazepam 2 mg/ml vial ONE (19:51)
[2024-10-16] MEDS: LORazepam 2 mg/ml vial IM ONE (09:34)
[2024-10-16] MEDS: diphenhydrAMINE 50 mg/ml inj IM ONE (09:34)
[2024-10-16 09:35] VITALS: BP 120/86; PULSE 100; TEMP 98.7; O2SAT 99
[2024-10-16] MEDS: haloperidol lactate 5mg/ml inj IM ONE (09:35)
[2024-10-16 09:48] LABS: BASOPHILS % (AUTO) 0.6 % (0-1); EOSINOPHILS # (AUTO) 0.3 X10'3 (0-0.9); EOSINOPHILS % (AUTO) 3.5 % (0-6); HEMATOCRIT 42.6 % (42.0-52.0); HEMOGLOBIN 14.2 g/dl (14.0-17.9); LYMPHOCYTES # (AUTO) 2.1 X10'3 (1.1-4.8); LYMPHOCYTES % (AUTO) 25.7 % (21-51); MEAN CORPUSCULAR HEMOGLOBIN 29.5 PG (27.0-31.0); MEAN CORPUSCULAR HGB CONC 33.4 g/dL (33.0-36.5); MEAN CORPUSCULAR VOLUME 88.3 FL (78-98); MEAN PLATELET VOLUME 7.7 FL (7.4-10.4); MONOCYTES # (AUTO) 0.5 X10'3 (0-0.9); MONOCYTES % (AUTO) 6.1 % (2-12); NEUTROPHILS # (AUTO) 5.2 X10'3 (1.8-7.7); NEUTROPHILS % (AUTO) 64.1 % (42-75); PLATELET COUNT 535 X10'3 (140-440); RED BLOOD COUNT 4.82 X10'6 (4.70-6.10); RED CELL DISTRIBUTION WIDTH 14.9 % (11.5-14.5); WHITE BLOOD COUNT 8.2 X10'3 (4.5-11.0)
[2024-10-16 10:22] LABS: BILIRUBIN,URINE NEGATIVE (Neg); CLARITY,URINE CLEAR (Clear); COLOR,URINE YELLOW (Yellow); GLUCOSE, URINE NEGATIVE (Neg); KETONES,URINE NEGATIVE (Neg); LEUKOCYTE ESTERASE ,URINE NEGATIVE (Neg); NITRITES, URINE NEGATIVE (Neg); OCCULT BLOOD,URINE NEGATIVE (Neg); PROTEIN,URINE NEGATIVE (Neg); UROBILINOGEN,URINE 0.2 E.U/dL (0.2-1.0)
[2024-10-16 10:26] LABS: UA COLLECTION TYPE CLN CATCH MIDSTREAM
[2024-10-16 10:33] LABS: ALBUMIN 3.4 G/DL (3.4-5.0); ANION GAP 8 (8-16); BLOOD UREA NITROGEN 23 MG/DL (7-18); CALCIUM 8.9 MG/DL (8.5-10.1); CHLORIDE 106 MMOL/L (99-107); POTASSIUM 3.3 MMOL/L (3.5-5.1); SODIUM 141 MMOL/L (135-145); THYROID STIMULATING HORMONE 0.75 ulU/ml (0.34-4.50); TOTAL CARBON DIOXIDE 26.9 MMOL/L (24-32); eCRCL 107 ML/MIN; eGFR 80 ML/MIN
[2024-10-16 10:35] VITALS: RESP 16
[2024-10-16 10:35] LABS: URINE AMPHETAMINE SCREEN NEGATIVE (Neg); URINE BARBITUATE SCREEN NEGATIVE (Neg); URINE BENZODIAZEPINES SCREEN NEGATIVE (Neg); URINE CANNABINOID SCREEN NEGATIVE (Neg); URINE COCAINE SCREEN NEGATIVE (Neg); URINE METHADONE SCREEN NEGATIVE (Neg); URINE OPIATE SCREEN NEGATIVE (Neg); URINE PHENCYCLIDINE SCREEN NEGATIVE (Neg)
[2024-10-16 10:39] LABS: ETHANOL < 10 MG/DL (<10); GLUCOSE 49 MG/DL (70-104)
[2024-10-16] MEDS: LORazepam 1 MG tablet PO ONE (17:01)
[2024-10-16] MEDS: ibuprofen tablet 400 MG TABLET PO ONE (17:01)
== END 2024-10-16 17:55 ==
LOC: ER 12:52
DX: R45.851 Suicidal ideations (principal); Z20.822 Contact with and (suspected) exposure to COVID-19; I10 Essential (primary) hypertension; F15.90 Other stimulant use, unspecified, uncomplicated; F20.9 Schizophrenia, unspecified; F31.9 Bipolar disorder, unspecified; G89.29 Other chronic pain; Z79.899 Other long term (current) drug therapy; Z88.8 Allergy status to other drugs, medicaments and biological substances; Z59.00 Homelessness unspecified
CPT/HCPCS: 36415; 80048; 80305; 80320; 81001; 81003; 82948; 84443; 85025; 87811; 99285; J1200; J1630; J2060

== ENCOUNTER 2024-10-26 03:38 | Emergency (ER) | payer MEDICAID ==
[~2024-10-26] VITALS: Ht 185.4 cm; Wt 90.0 kg
[~2024-10-26 03:38] MED LIST changes: -ACET-1025 PO; -AMOX-580 PO; -CLIN-97 PO; -LEVO-65 PO; -RISP3TAB77 PO
[2024-10-26 03:40] VITALS: BP 149/102; PULSE 117; RESP 18; TEMP 98.1; O2SAT 100
== END 2024-10-26 04:07 | disposition home or self-care (01) ==
LOC: ER 03:39
DX: Z00.8 Encounter for other general examination (principal); I10 Essential (primary) hypertension; F20.9 Schizophrenia, unspecified; F31.9 Bipolar disorder, unspecified; G35 Multiple sclerosis; Z88.8 Allergy status to other drugs, medicaments and biological substances
CPT/HCPCS: 99281

== ENCOUNTER 2024-11-02 23:12 | Emergency (ER) | payer MEDICAID ==
[~2024-11-02] VITALS: Ht 193 cm; Wt 98.3 kg
[2024-11-02 23:15] VITALS: BP 130/88; PULSE 106; RESP 20; TEMP 97.1; O2SAT 98
== END 2024-11-03 02:14 | disposition left against medical advice (07) ==
LOC: ER 23:13
DX: K08.89 Other specified disorders of teeth and supporting structures (principal); Z53.21 Procedure and treatment not carried out due to patient leaving prior to being seen by health care provider
CPT/HCPCS: J7120

== ENCOUNTER 2024-11-03 21:28 | Emergency (ER) | payer MEDICAID | END 2024-11-03 22:17 | disposition left against medical advice (07) | LOC: ER 21:29 | DX: Z04.6 Encounter for general psychiatric examination, requested by authority (principal); Z53.21 Procedure and treatment not carried out due to patient leaving prior to being seen by health care provider ==

== ENCOUNTER 2024-11-06 12:10 | Emergency (ER) | payer MEDICAID ==
[~2024-11-06] VITALS: Ht 188 cm; Wt 97.7 kg
[2024-11-06 12:36] VITALS: BP 121/87; PULSE 82; RESP 16; TEMP 98; O2SAT 99
[2024-11-06 13:27] LABS: EOSINOPHILS # (AUTO) 0.1 X10'3 (0-0.9); LYMPHOCYTES # (AUTO) 2.4 X10'3 (1.1-4.8); PLATELET COUNT 693 X10'3 (140-440)
[2024-11-06 13:28] LABS: BASOPHILS % (AUTO) 0.2 % (0-1); EOSINOPHILS % (AUTO) 0.5 % (0-6); HEMATOCRIT 42.7 % (42.0-52.0); HEMOGLOBIN 14.8 g/dl (14.0-17.9); LYMPHOCYTES % (AUTO) 20.6 % (21-51); MEAN CORPUSCULAR HEMOGLOBIN 30.3 PG (27.0-31.0); MEAN CORPUSCULAR HGB CONC 34.7 g/dL (33.0-36.5); MEAN CORPUSCULAR VOLUME 87.3 FL (78-98); MEAN PLATELET VOLUME 7.3 FL (7.4-10.4); MONOCYTES % (AUTO) 8.7 % (2-12); NEUTROPHILS # (AUTO) 8.2 X10'3 (1.8-7.7); RED BLOOD COUNT 4.89 X10'6 (4.70-6.10); RED CELL DISTRIBUTION WIDTH 14.9 % (11.5-14.5); WHITE BLOOD COUNT 11.7 X10'3 (4.5-11.0)
[2024-11-06 13:51] LABS: ALBUMIN 3.5 G/DL (3.4-5.0); ANION GAP 7 (8-16); BLOOD UREA NITROGEN 17 MG/DL (7-18); BUN/CREATININE RATIO 20.5 (10.0-20.0); CALCIUM 9.1 MG/DL (8.5-10.1); CHLORIDE 103 MMOL/L (99-107); CREATININE 0.83 MG/DL (0.60-1.10); GLUCOSE 76 MG/DL (70-104); POTASSIUM 4.4 MMOL/L (3.5-5.1); SODIUM 139 MMOL/L (135-145); THYROID STIMULATING HORMONE 0.81 ulU/ml (0.34-4.50); TOTAL CARBON DIOXIDE 29.5 MMOL/L (24-32); eCRCL 129 ML/MIN; eGFR > 90 ML/MIN
[2024-11-06] MEDS ORDERED: LORazepam 2 mg/ml vial IM ONE (13:55)
[2024-11-06] MEDS ORDERED: haloperidol lactate 5mg/ml inj IM ONE (13:55)
[2024-11-06] MEDS ORDERED: diphenhydrAMINE 50 mg/ml inj IM ONE (13:55)
[2024-11-06 14:04] LABS: ETHANOL < 10 MG/DL (<10)
== END 2024-11-06 19:35 | disposition left against medical advice (07) ==
LOC: ER 12:11
DX: R45.851 Suicidal ideations (principal); F99 Mental disorder, not otherwise specified; F15.10 Other stimulant abuse, uncomplicated; I10 Essential (primary) hypertension; G89.29 Other chronic pain; G35 Multiple sclerosis; F31.9 Bipolar disorder, unspecified; F20.9 Schizophrenia, unspecified; Z88.8 Allergy status to other drugs, medicaments and biological substances
CPT/HCPCS: 80048; 80320; 84443; 85025; 99285

== ENCOUNTER 2024-11-06 19:50 | Emergency (ER) | payer MEDICAID ==
[~2024-11-06] VITALS: Ht 188 cm; Wt 79.5 kg
[2024-11-06 19:54] VITALS: BP 121/81; PULSE 83; RESP 18; TEMP 98.2; O2SAT 94
== END 2024-11-06 23:27 | disposition home or self-care (01) ==
LOC: ER 19:50
DX: Z04.6 Encounter for general psychiatric examination, requested by authority (principal); I10 Essential (primary) hypertension; G89.29 Other chronic pain; G35 Multiple sclerosis; F20.9 Schizophrenia, unspecified; F31.9 Bipolar disorder, unspecified; F15.90 Other stimulant use, unspecified, uncomplicated; Z88.8 Allergy status to other drugs, medicaments and biological substances; Z79.899 Other long term (current) drug therapy
CPT/HCPCS: 99285

== ENCOUNTER 2025-05-09 00:49 | Emergency (ER) | payer MEDICAID ==
[~2025-05-09] VITALS: Ht 195.6 cm; Wt 69.1 kg
[2025-05-09 01:00] VITALS: BP 142/89; PULSE 112; RESP 15; O2SAT 97
[2025-05-09 02:27] VITALS: TEMP 96.7
--- NOTE | 2025-05-09 02:45 | RADIOLOGY REPORT ---
DI PELVIS,LIMITED 1-2 VIEWS HISTORY: Injury TECHNICAL DATA: Frontal view was obtained of the pelvis. COMPARISON: None IMPRESSION: Pelvic ring appears intact. No acute fracture or dislocation. Hip joints appear symmetric and satisfa ctory. Sacroiliac joints are patent.
--- NOTE | 2025-05-09 02:45 | RADIOLOGY REPORT ---
EXAM: DI CERVICAL SPINE LTD INDICATION: injury 6 months ago, pain base of c-spine COMPARISON: DI CERVICAL SPINE,FLEX EXTEN on DOS: 07/09/24 TECHNIQUE: 3 views of the cervical were obtained. Impression: 1. No acute fracture or subluxation. [id number] degenerative changes from C3 through C6 with in tervertebral disc space narrowing and anterior osteophytes. Prevertebral soft tissues appear unremark able. Odontoid and lateral bodies are well-approximated.
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
[2025-05-09] MEDS ORDERED: HYDR-3686 PO (21:07)
[2025-05-10] MEDS ORDERED: OLAN-38 PO (03:06)
[2025-05-10] MEDS ORDERED: MIRT45TA90 PO (03:06)
== END 2025-05-09 02:33 | disposition left against medical advice (07) ==
LOC: ER 00:50
DX: G89.29 Other chronic pain (principal); M54.2 Cervicalgia; M25.552 Pain in left hip; I10 Essential (primary) hypertension; F31.9 Bipolar disorder, unspecified; F20.9 Schizophrenia, unspecified; F41.9 Anxiety disorder, unspecified; F15.90 Other stimulant use, unspecified, uncomplicated; Z88.8 Allergy status to other drugs, medicaments and biological substances; Z56.0 Unemployment, unspecified; Z59.00 Homelessness unspecified
CPT/HCPCS: 72040; 72170; 99284

== ENCOUNTER 2025-05-09 20:19 | Emergency (ER) | payer MEDICAID ==
--- NOTE | 2025-05-09 21:05 | Physician Documentation ---
History of Present Illness ~ General Stated Complaint: MULTIPLE COMPLAINTS Time Seen by MD: 20:59 Primary Medical Doctor: None History of Present Illness Initial Comments 44-year-old male history of amphetamine use has stopped using meth approximately 2 days ago is waiting to get [facility]. Patient is having anxiety and difficulty with sleep. Patient denies any cardiac or respiratory history. No other acute concerns Medication Reconciliation Allergies: Coded Allergies: pseudoephedrine (Unverified Allergy, Unknown, 05/09/25) Scheduled Divalproex Sodium DR* (Depakote DR*), 1 TAB PO BID, (Reported) Gabapentin (Gabapentin), 3 CAP PO TID, (Reported) Hydroxyzine Hcl (Atarax), 1 TAB PO Q8H Topiramate (Topiramate), 1 TAB PO BID, (Reported) Trazodone HCl (Trazodone HCl), 1 TAB PO HS, (Reported) Past Medical History Past Medical History: Multiple Sclerosis, Seizures, Hypertension, Hepatitis C, Chronic Back Pain, HIV, Anxiety, Bipolar, Psychosis, Schizophrenia Past Surgical History: no surgical history Alcohol Use: Heavy Drug Use: methamphetamine Lives with: Family Lives In: Homeless Occupation: unemployed, disabled Physical Exam Physical Exam General Appearance: alert, WD/WN, no apparent distress Head: normal inspection; No: tender Respiratory: lungs clear, normal breath sounds, no respiratory distress Chest: no accessory muscle use, chest non-tender Cardiovascular: normal peripheral pulses, regular rate, rhythm, no murmur; No: JVD Medical Decision Making Findings Patient has recently used amphetamine and is having anxiety difficult time sleeping. Patient is going into recovery. Vital signs reassuring. Departure Condition: Stable Referrals: NO PRIMARY CARE PROVIDER (PCP) Education Educated: Patient Signature Scribe Signature: No Scribe Attestation: The note accurately reflects work and decisions made by me.Catherine LIZ 05/09/25 21:07 CATHERINE CROUCH NP May 09, 2025 21:05
[2025-05-09] MEDS ORDERED: HYDR-3686 PO (21:07)
[2025-05-10] MEDS ORDERED: MIRT45TA90 PO (03:06)
[2025-05-10] MEDS ORDERED: OLAN-38 PO (03:06)
== END 2025-05-09 22:39 | disposition home or self-care (01) ==
LOC: ER 20:20
DX: F15.10 Other stimulant abuse, uncomplicated (principal); F41.9 Anxiety disorder, unspecified; F31.9 Bipolar disorder, unspecified; F20.9 Schizophrenia, unspecified; I10 Essential (primary) hypertension; Z88.8 Allergy status to other drugs, medicaments and biological substances; Z79.899 Other long term (current) drug therapy; Z59.00 Homelessness unspecified; Z56.0 Unemployment, unspecified
CPT/HCPCS: 99281

== ENCOUNTER 2025-05-10 02:46 | Emergency (ER) | payer MEDICAID ==
[~2025-05-10] VITALS: Ht 190.5 cm; Wt 88.9 kg
[2025-05-10] MEDS ORDERED: MIRT45TA90 PO (03:06)
[2025-05-10] MEDS ORDERED: OLAN-38 PO (03:06)
--- NOTE | 2025-05-10 04:01 | Physician Documentation ---
History of Present Illness ~ Chief Complaint: Hallucinations Stated Complaint: MULTIPLE ISSUES Time Seen by MD: 03:09 Primary Medical Doctor: None Source: patient Mode of Arrival: POV Exam Limitations: no limitations HPI Patient in who was recently discharged from long-term over the last couple of days. He was in there for 6 months. He states he has been working with community mental health social worker to try to get him housing. He states he had social security checks it had been mailed to him but eventually were mailed back so now that he is out he does not have access to them. He also states that his food stamp card is showing that it is empty. He states that yesterday he felt like walking out into traffic bec ause he is just so overwhelmed with the fact that he can not set anything up. He states it prior to going into long-term he had been a meth user for years and he is currently clean and he wants to stay that way. No homicidal ideation. Medication Reconciliation Allergies: Coded Allergies: pseudoephedrine (Unverified Allergy, Unknown, 05/10/25) Scheduled Divalproex Sodium DR* (Depakote DR*), 3 TAB PO BID, (Reported) Mirtazapine (Remeron), 1 TAB PO HS, (Reported) Olanzapine (Olanzapine), 1 TAB PO BID, (Reported) Discontinued Medications Gabapentin (Gabapentin), 3 CAP PO TID, (Reported) Discontinued Reason: Other Hydroxyzine Hcl (Atarax), 1 TAB PO Q8H Topiramate (Topiramate), 1 TAB PO BID, (Reported) Discontinued Reason: Other Trazodone HCl (Trazodone HCl), 1 TAB PO HS, (Reported) Discontinued Reason: Other Past Medical History Past Medical History: No Pertinent History, Multiple Sclerosis, Seizures, Hypertension, Hepatitis C, Chronic Back Pain, HIV, Anxiety, Bipolar, Psychosis, Schizophrenia Past Surgical History: no surgical history Alcohol Use: Heavy Drug Use: methamphetamine Lives with: Family Lives In: Homeless Occupation: unemployed, disabled Review of Systems All Other Systems at this time: Reviewed and Negative Physical Exam Vital Signs: Temperature: 98.5, Source: Temporal, Heart Rate: 80, Respiratory Rate: 16, BP: 98/71, Pulse Oximetry: 98, Weight: 88.900 Oxygen Flow Rate: 0 Physical Exam General: Alert and oriented x4, well-appearing, well-nourished, no acute distress HEENT: Normocephalic, atraumatic, no visible or palpable masses or depression, extraocular movements intact, PERRLA, no scleral icterus, neck is supple and nontender, mucous membranes moist Heart: Regular rate and rhythm, no murmurs, rubs or gallops Lungs: Clear to auscultation bilaterally, normal work of breathing Abdomen: Soft, nontender, no palpable masses, Back: Spine is without deformity or tenderness, no CVA tenderness Extremities: Full range of motion, no acute deformity, no cyanosis or edema Musculoskeletal: Normal gait, normal tone Neurologic: Cranial nerves 2-12 are intact, Psychiatric: Alert and oriented x4, suicidal Skin: Good turgor, no rashes Progress Results/Orders Results/Orders Orders - MIRELLA HUGHES MD Cbc/Diff (05/10/25 03:22) Med Rec (05/10/25 03:22) 1799.11 (05/10/25 03:22) Close Observation Level (05/10/25 03:22) Covid19 Binax Poc Result Entry (05/10/25 03:22) Substance Use Navigator (05/10/25 03:22) Regular Diet (05/10/25 Breakfast) Ua With Microscopic (05/10/25 04:21) Completed Orders - MIRELLA HUGHES MD Drug Screen, Urine (05/10/25 03:22) Ethanol (05/10/25 03:22) TSH (05/10/25 03:22) BMP (05/10/25 03:22) Vital Signs 05/10/25 05/10/25 02:57 03:18 Temp 98.5 Pulse 80 Resp 18 16 B/P (MAP) 98/71 Pulse Ox 98 O2 Flow Rate 0 Laboratory Tests Test 05/10/25 03:54 05/10/25 04:18 05/10/25 04:21 CBC Comment Sodium Level 150 H Potassium Level 3.8 Chloride Level 111 H Carbon Dioxide Level 33.8 H Anion Gap 5 L Blood Urea Nitrogen 45 H Creatinine 1.82 H Estimated GFR/1.73 m2 40 BUN/Creatinine Ratio 24.7 H Glucose Level 96 Calcium Level 9.0 Albumin 3.5 Thyroid Stimulating Hormone (TSH) 2.04 Chemistry Comments Ethyl Alcohol Level < 10 SARS-CoV-2 Antigen (Rapid) Negative Urine Specimen Description Non-specified Urine Color Yellow Urine Clarity Clear Urine pH 6.0 Urine Specific [place] 1.020 Urine Protein Trace Urine Glucose (UA) Negative Urine Ketones Trace H Urine Occult Blood Negative Urine Nitrite Negative Urine Bilirubin Negative Urine Urobilinogen 1.0 Urine Leukocyte Esterase Negative Volume Urine Centrifuged 10 ml Urine Comment Urine Opiates Screen Negative Urine Methadone Screen Negative Urine Fentanyl Screen Negative Urine Barbiturates Screen Negative Urine Phencyclidine Screen Negative Urine Amphetamines Screen Negative Urine Benzodiazepines Screen Negative Urine Cocaine Screen Negative Urine Cannabinoids Screen Negative Drug Screen Comment Departure Impression: Primary Impression: Suicidal ideation Additional Impression Text Patient with suicidal ideation. Mild renal insufficiency. May be due to dehydration. No prior creatinine for comparison. Can follow-up outpatient. Medically cleared to be evaluated by [facility]. Condition: Stable Referrals: NO PRIMARY CARE PROVIDER (PCP) Signature Scribe Signature: No scribe Attestation: No scribe MIRELLA HUGHES MD May 10, 2025 04:01
[2025-05-10 05:14] LABS: BILIRUBIN,URINE NEGATIVE (Neg); CLARITY,URINE CLEAR (Clear); COLOR,URINE YELLOW (Yellow); GLUCOSE, URINE NEGATIVE (Neg); KETONES,URINE TRACE mg/dl (Neg); LEUKOCYTE ESTERASE ,URINE NEGATIVE (Neg); NITRITES, URINE NEGATIVE (Neg); OCCULT BLOOD,URINE NEGATIVE (Neg); PROTEIN,URINE TRACE mg/dl (Neg)
[2025-05-10 05:15] LABS: UA COLLECTION TYPE NON-SPECIFIED
[2025-05-10 05:23] LABS: ALBUMIN 3.5 G/DL (3.4-5.0); ANION GAP 5 (8-16); BLOOD UREA NITROGEN 45 MG/DL (7-18); BUN/CREATININE RATIO 24.7 (10.0-20.0); CHLORIDE 111 MMOL/L (99-107); CREATININE 1.82 MG/DL (0.60-1.10); ETHANOL < 10 MG/DL (<10); GLUCOSE 96 MG/DL (70-104); POTASSIUM 3.8 MMOL/L (3.5-5.1); SODIUM 150 MMOL/L (135-145); THYROID STIMULATING HORMONE 2.04 ulU/ml (0.34-4.50); TOTAL CARBON DIOXIDE 33.8 MMOL/L (24-32); eCRCL 61 ML/MIN; eGFR 40 ML/MIN
[2025-05-10 05:26] LABS: BASOPHILS % (AUTO) 0.5 % (0-1); EOSINOPHILS # (AUTO) 0.1 X10'3 (0-0.9); EOSINOPHILS % (AUTO) 0.9 % (0-6); HEMOGLOBIN 13.1 g/dl (14.0-17.9); LYMPHOCYTES # (AUTO) 2.5 X10'3 (1.1-4.8); LYMPHOCYTES % (AUTO) 31.8 % (21-51); MEAN CORPUSCULAR HEMOGLOBIN 31.4 PG (27.0-31.0); MEAN CORPUSCULAR HGB CONC 34.4 g/dL (33.0-36.5); MEAN CORPUSCULAR VOLUME 91.3 FL (78-98); MONOCYTES # (AUTO) 0.9 X10'3 (0-0.9); MONOCYTES % (AUTO) 11.3 % (2-12); NEUTROPHILS # (AUTO) 4.3 X10'3 (1.8-7.7); NEUTROPHILS % (AUTO) 55.5 % (42-75); PLATELET COUNT 411 X10'3 (140-440); RED BLOOD COUNT 4.16 X10'6 (4.70-6.10); RED CELL DISTRIBUTION WIDTH 14.2 % (11.5-14.5); WHITE BLOOD COUNT 7.8 X10'3 (4.5-11.0)
[2025-05-10 05:28] LABS: URINE AMPHETAMINE SCREEN NEGATIVE (Neg); URINE BARBITUATE SCREEN NEGATIVE (Neg); URINE BENZODIAZEPINES SCREEN NEGATIVE (Neg); URINE CANNABINOID SCREEN NEGATIVE (Neg); URINE COCAINE SCREEN NEGATIVE (Neg); URINE METHADONE SCREEN NEGATIVE (Neg); URINE OPIATE SCREEN NEGATIVE (Neg); URINE PHENCYCLIDINE SCREEN NEGATIVE (Neg)
[2025-05-10 05:31] LABS: BACTERIA,URINE FEW /HPF (Neg); RBC,URINE 0-2 /HPF (0-2); SQUAMOUS EPITHELIAL CELL,UR FEW /LPF (FEW)
[2025-05-10 05:32] LABS: MUCUS STRANDS FEW /LPF (Neg); SPERM FEW /HPF (NEGATIVE)
[2025-05-10 06:01] VITALS: BP 108/64; PULSE 91; RESP 18; TEMP 97.6; O2SAT 99
== END 2025-05-10 14:15 | disposition home or self-care (01) ==
LOC: ER 02:47
DX: R45.851 Suicidal ideations (principal); F15.90 Other stimulant use, unspecified, uncomplicated; Z88.8 Allergy status to other drugs, medicaments and biological substances; Z79.899 Other long term (current) drug therapy; Z56.0 Unemployment, unspecified; Z59.00 Homelessness unspecified; Z20.822 Contact with and (suspected) exposure to COVID-19
CPT/HCPCS: 36415; 80048; 80305; 80320; 81001; 84443; 85025; 87811; 99284; A6449

== ENCOUNTER 2025-05-11 16:43 | Emergency (ER) | payer MEDICAID ==
[~2025-05-11] VITALS: Ht 190.5 cm; Wt 90.5 kg
[~2025-05-11 16:43] MED LIST changes: +MIRT45TA90 PO; +OLAN-38 PO
[2025-05-11 16:56] VITALS: BP 109/72; PULSE 99; RESP 17; TEMP 98; O2SAT 97
--- NOTE | 2025-05-11 17:14 | Physician Documentation ---
History of Present Illness ~ General Chief Complaint: Multiple Medical Complaints Stated Complaint: CP/TOOTH INFECTION/FEEL SCARED FOR MY LIFE Time Seen by MD: 16:57 OK to notify your PCP?: Yes Primary Medical Doctor: None Source: patient Mode of Arrival: POV Exam Limitations: no limitations History of Present Illness Initial Comments 44-year-old male who is well known to our department presents for many medical complaints. He was last seen yesterday and has been here multiple times this week. This time he is complaining of dental pain, pain in the back of his head and intermittent heart palpitations. Not take any medications for his symptoms prior to arrival. Patient has a strong history of malingering. Patient admits to chest pain and did have EKG done. Medication Reconciliation Allergies: Coded Allergies: pseudoephedrine (Unverified Allergy, Unknown, 05/10/25) Scheduled Divalproex Sodium DR* (Depakote DR*), 3 TAB PO BID, (Reported) Mirtazapine (Remeron), 1 TAB PO HS, (Reported) Olanzapine (Olanzapine), 1 TAB PO BID, (Reported) Discontinued Medications Gabapentin (Gabapentin), 3 CAP PO TID, (Reported) Discontinued Reason: Other Hydroxyzine Hcl (Atarax), 1 TAB PO Q8H Topiramate (Topiramate), 1 TAB PO BID, (Reported) Discontinued Reason: Other Trazodone HCl (Trazodone HCl), 1 TAB PO HS, (Reported) Discontinued Reason: Other Past Medical History Past Medical History: No Pertinent History, Multiple Sclerosis, Seizures, Hypertension, Hepatitis C, Chronic Back Pain, HIV, Anxiety, Bipolar, Psychosis, Schizophrenia Past Surgical History: no surgical history Alcohol Use: Heavy Drug Use: methamphetamine Lives with: Family Lives In: Homeless Occupation: unemployed, disabled Review of Systems All Other Systems at this time: Reviewed and Negative Constitutional: Denies: chills, fever, weakness Eyes: Denies: pain, blurred vision ENT: Denies: ear pain, nose pain, throat pain, mouth pain Respiratory: Denies: cough, shortness of breath Cardiovascular: Denies: chest pain, palpitations Gastrointestinal: Denies: abdominal pain, nausea, vomiting Genitourinary: Denies: burning, dysuria Male Genitalia: Denies: penile discharge, testicular pain Neurological: Denies: headache, dizziness Musculoskeletal: Denies: pain, swelling Integumentary: Denies: rash, lesions Allergic/Immunologic: Denies: hives, itching Hematologic/Lymphatic: Denies: no symptoms reported Psychiatric: Denies: depression, anxiety Physical Exam Physical Exam Vital Signs: RN Vital Signs have been reviewed: Yes, Temperature: 98.0, Heart Rate: 99, Respiratory Rate: 17, BP: 109/72, Pulse Oximetry: 97, Weight: 90.500 Oxygen Flow Rate: 0 Pulse Oximetry Reflects: adequate oxygenation Physical Exam General: Alert, no distress. HEENT: No injection, moist mucous membranes. Neck: Full range of motion. Respiratory: No respiratory distress, equal chest rise and fall. Chest: No accessory muscle use. Cardiovascular: Regular rate and rhythm. Gastrointestinal: Nondistended. Extremities: Normal range of motion, no deformity. Neurologic: Oriented x4. Psychiatric: Normal mood and affect. Skin: Normal color, warm and dry. Progress Results/Orders Results/Orders Vital Signs 05/11/25 16:56 Temp 98.0 Pulse 99 Resp 17 B/P (MAP) 109/72 Pulse Ox 97 O2 Flow Rate 0 EKG/XRAY/CT/US/VASC/MRI EKG : Additional Comment EKG interpreted by myself today shows sinus tachycardia with rate at 111 beats per minute, no sign of ST segment elevation, no ischemic changes, no axis deviation. Medical Decision Making Findings 44-year-old male who is well known to our department presents for many medical complaints. He was last seen yesterday and has been here multiple times this week. This time he is complaining of dental pain, pain in the back of his head and intermittent heart palpitations. Not take any medications for his symptoms prior to arrival. Patient has a strong history of malingering. Patient admits to chest pain and did have EKG done. Patient eloped prior to further exam. Patient will return to ED with any worsening, concerning or changing symptoms. Departure Disposition: 01 HOME / SELF CARE / HOMELESS Impression: Primary Impression: Tachycardia Condition: Stable Additional Instructions: Patient eloped prior to further exam. Patient will return to ED with any worsening, concerning or changing symptoms. Referrals: NO PRIMARY CARE PROVIDER (PCP) Additional Comment Medical Screen Exam This patient recieved a medical screening examination. After reviewing the individual's medical complaints with presenting symptoms and performing an appropriate physical examination, it was determined that no immediate life-threatening emergency medical condition is present. This individual is also not a women having contractions. Signature Scribe Signature: No scribe Attestation: No scribe CASANDRA SHANNON [facility] May 11, 2025 17:14 PEDRO PABLO [facility] May 11, 2025 17:29
--- NOTE | 2025-05-11 17:17 | ELECTROCARDIOGRAPH REPORT ---
[facility] Test Date: 2025-05-11 Test Time: 16:49:40 Pat Name: RAY LANDON Department: EMERGENCY ROOM Room: Gender: M [place]: PM : 1980 Requested By: CASANDRA SHANNON Order Number: [id number] Reading MD: Measurements Intervals [place] Rate: 111 P: 60 GA: 177 QRS: 263 QRSD: 85 T: 62 QT: 319 QTc: 434 Interpretive Statements Sinus tachycardia Probable left atrial enlargement Left anterior fascicular block Probable anteroseptal infarct, old Please click the below link to view image of tracing.
== END 2025-05-11 17:31 | disposition left against medical advice (07) ==
LOC: ER 16:44
DX: R00.0 Tachycardia, unspecified (principal); K08.89 Other specified disorders of teeth and supporting structures; M54.9 Dorsalgia, unspecified
CPT/HCPCS: 93005; 99283

== ENCOUNTER 2025-05-14 00:46 | Emergency (ER) | payer MEDICAID ==
[~2025-05-14] VITALS: Ht 195.6 cm; Wt 93.0 kg
[~2025-05-14 00:46] MED LIST changes: -GABA-530 PO; -TOPI-95 PO; -TRAZ-251 PO
[2025-05-14 00:48] VITALS: BP 131/81; PULSE 95; TEMP 97.9; O2SAT 97
[2025-05-14 01:12] VITALS: RESP 18
== END 2025-05-14 01:40 | disposition left against medical advice (07) ==
LOC: ER 00:47
DX: L90.5 Scar conditions and fibrosis of skin (principal); Z53.21 Procedure and treatment not carried out due to patient leaving prior to being seen by health care provider; Z88.8 Allergy status to other drugs, medicaments and biological substances

== ENCOUNTER 2025-05-17 06:45 | Emergency (ER) | payer MEDICAID ==
[~2025-05-17] VITALS: Ht 195.6 cm; Wt 98.4 kg
[2025-05-17 06:57] VITALS: BP 138/66; PULSE 81; TEMP 97; O2SAT 100
--- NOTE | 2025-05-17 07:31 | Physician Documentation ---
History of Present Illness ~ General Chief Complaint: Multiple Medical Complaints Stated Complaint: MULTIPLE COMPLAINTS Time Seen by MD: 07:13 Primary Medical Doctor: None Mode of Arrival: Ambulatory History of Present Illness Initial Comments 44-year-old male with a history of mental health disorder and substance abuse presenting stating that he wants a checkup to make sure that he is okay. The patient reports that he was recently released from care home and that in the care home it was very dirty and that he fears that he may have caught some type of disease. Reports that his skin on his forearms appears to be swollen and he thinks that he might have a bacterial or viral infection in his body. States that he is ho meless currently but is working on getting his life back together. States that he was told in the past that he may have HIV as well as hepatitis but he is unsure. He would like to get some blood work done to make sure he is okay. He denies any other symptoms such as fever, chills, nausea, vomiting or any other associated symptoms at this time. Medication Reconciliation Allergies: Coded Allergies: pseudoephedrine (Unverified Allergy, Unknown, 05/14/25) Scheduled Divalproex Sodium DR* (Depakote DR*), 3 TAB PO BID, (Reported) Mirtazapine (Remeron), 1 TAB PO HS, (Reported) Olanzapine (Olanzapine), 1 TAB PO BID, (Reported) Discontinued Medications Gabapentin (Gabapentin), 3 CAP PO TID, (Reported) Discontinued Reason: Other Topiramate (Topiramate), 1 TAB PO BID, (Reported) Discontinued Reason: Other Trazodone HCl (Trazodone HCl), 1 TAB PO HS, (Reported) Discontinued Reason: Other Past Medical History Past Medical History: No Pertinent History, Multiple Sclerosis, Seizures, Hypertension, Hepatitis C, Chronic Back Pain, HIV, Anxiety, Bipolar, Psychosis, Schizophrenia Past Surgical History: no surgical history Alcohol Use: Heavy Drug Use: methamphetamine Lives with: Family Lives In: Homeless Occupation: unemployed, disabled Review of Systems All Other Systems at this time: Reviewed and Negative Physical Exam Physical Exam Vital Signs: Temperature: 97.0, Source: Oral, Heart Rate: 81, Respiratory Rate: 18, BP: 138/66, Pulse Oximetry: 100, Weight: 98.400 Physical Exam I have reviewed the triage vitals. CONST: Well developed and well nourished. In no acute distress HENT: Head Atraumatic EYES: Pupils are equal, round and reactive to light. Normal conjunctiva NECK: Normal range of motion. Supple. CARDIO: Normal rate and regular rhythm. No murmurs, rubs, or gallops. S1, S2. PULM/CHEST: No respiratory distress. Lungs clear to auscultation. No wheeze ABD: Soft and nontender. Nondistended. Bowel sounds normal. No guarding. : Exam deferred MSK: No edema. No deformity. NEURO: Alert and oriented to person, place and time. Moving all extremities SKIN: Warm and dry. PSYCH: Normal mood and affect. Good eye contact. Progress Results/Orders Results/Orders Orders - AMADOU VALLE MD Hiv Ab 1&2 Rapid Scn (05/17/25 07:25) Hepatitis C Ab W/Reflex To Pcr (05/17/25 07:25) Hbsag Screen (05/17/25 07:25) Hep B Core Ab, Igm (05/17/25 07:25) Hep A Ab, Igm (05/17/25 07:25) Urinalysis (05/17/25 07:25) Completed Orders - AMADOU VALLE MD Cbc/Diff (05/17/25 07:25) CMP (05/17/25 07:25) Vital Signs 05/17/25 05/17/25 06:57 08:21 Temp 97.0 Pulse 81 Resp 18 16 B/P (MAP) 138/66 Pulse Ox 100 Laboratory Tests Test 05/17/25 08:13 White Blood Count 9.8 Red Blood Count 3.88 L Hemoglobin 12.4 L Hematocrit 36.2 L Mean Corpuscular Volume 93.3 Mean Corpuscular Hemoglobin 32.0 H Mean Corpuscular Hemoglobin Concent 34.3 Red Cell Distribution Width 14.7 H Platelet Count 457 H Mean Platelet Volume 7.4 Neutrophils (%) (Auto) 69.9 Lymphocytes (%) (Auto) 18.4 L Monocytes (%) (Auto) 9.3 Eosinophils (%) (Auto) 1.6 Basophils (%) (Auto) 0.8 Neutrophils # (Auto) 6.9 Lymphocytes # (Auto) 1.8 Monocytes # (Auto) 0.9 Eosinophils # (Auto) 0.2 Basophils # (Auto) 0.1 CBC Comment Sodium Level 144 Potassium Level 3.6 Chloride Level 109 H Carbon Dioxide Level 32.8 H Anion Gap 2 L Blood Urea Nitrogen 15 Creatinine 0.92 Estimated GFR/1.73 m2 89 BUN/Creatinine Ratio 16.3 Glucose Level 78 Calcium Level 8.6 Total Bilirubin 0.2 Aspartate Amino Transf (AST/SGOT) 23 Alanine Aminotransferase (ALT/SGPT) 27 Alkaline Phosphatase 54 Total Protein 6.2 L Albumin 2.9 L Globulin 3.3 Albumin/Globulin Ratio 0.9 L Chemistry Comments Medical Decision Making Differential Diagnosis 44-year-old male presenting for a general medical exam. Patient has history of schizophrenia as well as substance abuse although now he has been clean. Aside from some burning and skin complaints he is otherwise feeling fine. We did do a lab workup including CBC, CMP as well as an HIV and hepatitis panel given his reported history of this. The plan was initially for patient to follow up as an outpatient with his primary care physician after receiving his lab work however the patient eloped prior to being given his final disposition and paperwork. Departure Disposition: 07 LEFT AWOL/ELOPED Impression: Primary Impression: General medical exam Condition: Stable Referrals: NO PRIMARY CARE PROVIDER (PCP) Signature Scribe Signature: 1 Attestation: 1 AMADOU VALLE MD May 17, 2025 07:31
[2025-05-17 08:21] VITALS: RESP 16
[2025-05-17 08:24] LABS: BASOPHILS # (AUTO) 0.1 X10'3 (0-0.2); BASOPHILS % (AUTO) 0.8 % (0-1); EOSINOPHILS # (AUTO) 0.2 X10'3 (0-0.9); EOSINOPHILS % (AUTO) 1.6 % (0-6); HEMATOCRIT 36.2 % (42.0-52.0); HEMOGLOBIN 12.4 g/dl (14.0-17.9); LYMPHOCYTES # (AUTO) 1.8 X10'3 (1.1-4.8); LYMPHOCYTES % (AUTO) 18.4 % (21-51); MEAN CORPUSCULAR HGB CONC 34.3 g/dL (33.0-36.5); MEAN CORPUSCULAR VOLUME 93.3 FL (78-98); MEAN PLATELET VOLUME 7.4 FL (7.4-10.4); MONOCYTES # (AUTO) 0.9 X10'3 (0-0.9); MONOCYTES % (AUTO) 9.3 % (2-12); NEUTROPHILS # (AUTO) 6.9 X10'3 (1.8-7.7); NEUTROPHILS % (AUTO) 69.9 % (42-75); PLATELET COUNT 457 X10'3 (140-440); RED BLOOD COUNT 3.88 X10'6 (4.70-6.10); RED CELL DISTRIBUTION WIDTH 14.7 % (11.5-14.5); WHITE BLOOD COUNT 9.8 X10'3 (4.5-11.0)
[2025-05-17 08:40] LABS: ALANINE AMINOTRANSFERASE 27 U/L (12-78); ALBUMIN 2.9 G/DL (3.4-5.0); ALBUMIN/GLOBULIN RATIO 0.9 (1.1-1.5); ALKALINE PHOSPHATASE 54 IU/L (46-116); ANION GAP 2 (8-16); ASPARTATE AMINO TRANSFERASE 23 U/L (10-37); BILIRUBIN,TOTAL 0.2 MG/DL (0.1-1.0); BLOOD UREA NITROGEN 15 MG/DL (7-18); BUN/CREATININE RATIO 16.3 (10.0-20.0); CALCIUM 8.6 MG/DL (8.5-10.1); CHLORIDE 109 MMOL/L (99-107); CREATININE 0.92 MG/DL (0.60-1.10); GLUCOSE 78 MG/DL (70-104); POTASSIUM 3.6 MMOL/L (3.5-5.1); SODIUM 144 MMOL/L (135-145); TOTAL CARBON DIOXIDE 32.8 MMOL/L (24-32); TOTAL PROTEIN 6.2 G/DL (6.4-8.2); eCRCL 126 ML/MIN; eGFR 89 ML/MIN
[2025-05-17 09:19] LABS: HIV ANTIBODY 1&2 RAPID NON-REACTIVE (Neg)
[2025-05-20 05:14] LABS: HBSAG SCREEN Negative (Negative); HEP A AB, IGM Negative (Negative); HEP B CORE AB, IGM Negative (Negative); HEPATITIS C VIRUS ANTIBODY Non Reactive (Non Reactive)
== END 2025-05-17 08:34 | disposition left against medical advice (07) ==
LOC: ER 06:46
DX: Z00.8 Encounter for other general examination (principal); F10.90 Alcohol use, unspecified, uncomplicated; F15.90 Other stimulant use, unspecified, uncomplicated; Z56.0 Unemployment, unspecified; Z59.00 Homelessness unspecified; Z88.8 Allergy status to other drugs, medicaments and biological substances; Z79.899 Other long term (current) drug therapy; Y90.9 Presence of alcohol in blood, level not specified
CPT/HCPCS: 80053; 85025; 86703; 86705; 86709; 86803; 87340; 87522; 99283

== ENCOUNTER 2025-05-18 13:40 | Emergency (ER) | payer MEDICAID ==
[~2025-05-18] VITALS: Ht 190.5 cm; Wt 85.3 kg
[2025-05-18 13:45] VITALS: BP 108/67; PULSE 90; RESP 16; TEMP 98.2; O2SAT 99
--- NOTE | 2025-05-18 14:25 | Physician Documentation ---
History of Present Illness ~ Chief Complaint: Hand pain Stated Complaint: HANDS SWOLLEN/WAS HERE YESTERDAY BUT LEFT Time Seen by MD: 15:18 OK to notify your PCP?: No Primary Medical Doctor: None HPI This is a 44-year-old male who presents to the emergency department due to pain and swelling to his right hand, patient reports he was seen in the emergency dep artment yesterday however left prior to finding out about his lab results. Tetanus within 5 years: No Medication Reconciliation Allergies: Coded Allergies: pseudoephedrine (Unverified Allergy, Unknown, 05/14/25) Scheduled Divalproex Sodium DR* (Depakote DR*), 3 TAB PO BID, (Reported) Mirtazapine (Remeron), 1 TAB PO HS, (Reported) Olanzapine (Olanzapine), 1 TAB PO BID, (Reported) Past Medical History Past Medical History: No Pertinent History, Multiple Sclerosis, Seizures, Hypertension, Hepatitis C, Chronic Back Pain, HIV, Anxiety, Bipolar, Psychosis, Schizophrenia Past Surgical History: no surgical history Alcohol Use: Heavy Drug Use: methamphetamine Lives with: Family Lives In: Homeless Occupation: unemployed, disabled Review of Systems All Other Systems at this time: Reviewed and Negative ROS Hand pain and swelling as stated above in the HPI, otherwise all systems are reviewed and negative. Physical Exam Vital Signs: Temperature: 98.2, Source: Temporal, Heart Rate: 90, Respiratory Rate: 16, BP: 108/67, Pulse Oximetry: 99, Weight: 85.300 Oxygen Flow Rate: 0 Physical Exam VITALS: Reviewed and as above. GENERAL: Alert, nontoxic appearing, no apparent distress. RESPIRATORY: No increased work of breathing, no respiratory distress, speaking in full clear sentences MUSCULOSKELETAL: Swelling without erythema to the right hand Progress Results/Orders Results/Orders Vital Signs 05/18/25 13:45 Temp 98.2 Pulse 90 Resp 16 B/P (MAP) 108/67 Pulse Ox 99 O2 Flow Rate 0 Medical Decision Making Findings MSE performed in triage and patient returned to ED lobby by nursing staff to await available ED room Attempted to evaluate patient in room 17 did make note of mild swelling in his right hand which he describes nonpainful was going to offer Javier wrap however patient left his room in the ED without allowing treatment that could be completed Departure Disposition: 07 LEFT AWOL/ELOPED Impression: Primary Impression: Hand pain Condition: Stable Signature Scribe Signature: h Attestation: Scribed for Phu Andersen [employer] by Phu Upton NP . 05/18/25 23:24 SAMUEL CARRANZA May 18, 2025 14:25 PHU ANDERSEN NP May 18, 2025 15:22
== END 2025-05-19 08:29 | disposition left against medical advice (07) ==
LOC: ER 13:40
DX: M79.641 Pain in right hand (principal)
CPT/HCPCS: 99281; 99282

== ENCOUNTER 2025-05-19 05:34 | Emergency (ER) | payer MEDICAID ==
[~2025-05-19] VITALS: Ht 190.5 cm; Wt 73.5 kg
[2025-05-19 05:37] VITALS: BP 145/65; PULSE 82; RESP 15; TEMP 96.8; O2SAT 99
== END 2025-05-19 09:18 | disposition left against medical advice (07) ==
LOC: ER 05:35
DX: M79.641 Pain in right hand (principal); Z88.8 Allergy status to other drugs, medicaments and biological substances; Z53.21 Procedure and treatment not carried out due to patient leaving prior to being seen by health care provider

== ENCOUNTER 2025-05-31 17:21 | Emergency (ER) | payer MEDICAID ==
[~2025-05-31] VITALS: Ht 190.5 cm; Wt 90.9 kg
[2025-05-31 17:29] VITALS: BP 139/80; PULSE 96; RESP 18; O2SAT 99
--- NOTE | 2025-05-31 18:11 | Physician Documentation ---
History of Present Illness ~ General Chief Complaint: See Chief Complaint Stated Complaint: KIDNEY/LIVER/BACK PAIN/DRYING OF THE SKIN/YELLOWIN Time Seen by MD: 17:50 Primary Medical Doctor: None Source: patient Mode of Arrival: POV Exam Limitations: no limitations History of Present Illness Initial Comments 44-year-old male who is here due to concern about jaundice. Patient states his skin is yellow and he was stuck by a needle about a year and a half ago in his concerned now that he may have HIV from the needle. He has never followed up wi th the clinic to get tested for HIV or anything. He also states his back is hurting him so he thought this could be an indicator of jaundice. He also reports that his skin is sloughing off like a snake. No hallucinations, chest pain, shortness of breath, abdominal pain, nausea or vomiting. Medication Reconciliation Allergies: Coded Allergies: pseudoephedrine (Unverified Allergy, Unknown, 05/31/25) Scheduled Divalproex Sodium DR* (Depakote DR*), 3 TAB PO BID, (Reported) Mirtazapine (Remeron), 1 TAB PO HS, (Reported) Olanzapine (Olanzapine), 1 TAB PO BID, (Reported) Past Medical History Past Medical History: No Pertinent History, Multiple Sclerosis, Seizures, Hypertension, Hepatitis C, Chronic Back Pain, HIV, Anxiety, Bipolar, Psychosis, Schizophrenia Past Surgical History: no surgical history Alcohol Use: Heavy Drug Use: methamphetamine Lives with: Family Lives In: Homeless Occupation: unemployed, disabled Review of Systems All Other Systems at this time: Reviewed and Negative Physical Exam Physical Exam Vital Signs: Temperature: 98.5, Source: Oral, Heart Rate: 96, Respiratory Rate: 18, BP: 139/80, Pulse Oximetry: 99, Weight: 90.910 Physical Exam GENERAL: Alert, no acute distress. HEENT: NCAT, EOMI, PERRL, normal oropharynx, moist oral mucosa. No scleral icterus. NECK: Supple, trachea midline. CARDIAC: Regular rate and rhythm, no murmurs, rubs, or gallops. PV: Equal distal pulses. No lower extremity edema, cap refill less than 2 seconds. RESPIRATORY: Equal breath sounds, clear to auscultation bilaterally, no respiratory distress. GASTROINTESTINAL: Non distended, soft, nontender, No guarding or rebound. MUSCULOSKELETAL: Normal range of motion, nontender, no swelling. Normal gait. NEUROLOGICAL: Awake, alert, and oriented x 3. SKIN: Warm/dry, no pallor, no rash. PSYCH: Alert and appropriate. Affect congruent with mood. Speech is clear. Good eye contact. Progress Results/Orders Results/Orders Vital Signs 05/31/25 05/31/25 17:29 18:18 Temp 98.5 98.5 Pulse 96 Resp 18 B/P (MAP) 139/80 Pulse Ox 99 Medical Decision Making Differential Diagnosis Patient has no jaundice on exam despite saying that his skin is yellow. He has no ascites. Patient's mentation appears baseline. No hallucinations or concern for elevated ammonia. Departure Time of Disposition: 19:01 Disposition: 01 HOME / SELF CARE / HOMELESS Impression: Primary Impression: General medical examination Condition: Stable Discharge Instructions: General Discharge Instructions Additional Instructions: YOUR VITAL SIGNS ARE ALL NORMAL YOUR EXAM IS ALSO NORMAL I DO NOT APPRECIATE JAUNDICE ON EXAM Referrals: NO PRIMARY CARE PROVIDER (PCP) Education Educated: Patient Educated regarding: diagnosis, treatment, need for follow up Signature Scribe Signature: x Attestation: ALLISON Odonnell May 31, 2025 18:11
[2025-05-31 18:18] VITALS: TEMP 98.5
== END 2025-05-31 18:23 | disposition home or self-care (01) ==
LOC: ER 17:22
DX: Z00.00 Encounter for general adult medical examination without abnormal findings (principal); F15.90 Other stimulant use, unspecified, uncomplicated; F10.90 Alcohol use, unspecified, uncomplicated; Z56.0 Unemployment, unspecified; Z59.00 Homelessness unspecified; Z88.8 Allergy status to other drugs, medicaments and biological substances; Z79.899 Other long term (current) drug therapy; Y90.9 Presence of alcohol in blood, level not specified
CPT/HCPCS: 99282

== ENCOUNTER 2025-06-18 17:22 | Emergency (ER) | payer MEDICAID ==
[~2025-06-18] VITALS: Ht 193 cm; Wt 95.5 kg
[2025-06-18 17:26] VITALS: BP 134/86; PULSE 99; RESP 16; O2SAT 100
[2025-06-18] MEDS ORDERED: AMOX-117 PO (19:00)
--- NOTE | 2025-06-18 19:01 | Physician Documentation ---
HPI ~ General Chief Complaint: Medication Request Stated Complaint: MED REQUEST Time Seen by MD: 17:38 Primary Medical Doctor: None History of Present Illness HPI Comment Patient is seen today with complaints of dental pain of his incisor upper incisor. Patient also complains of pressure in his maxillary sinus. Patient denies any chest pain or shortness of breath or abdominal pain or nausea, vomiting, diarrhea. Patient has no other concern or complaint at this time. Medication Reconciliation Allergies: Coded Allergies: pseudoephedrine (Unverified Allergy, Unknown, 05/31/25) Scheduled Divalproex Sodium DR* (Depakote DR*), 3 TAB PO BID, (Reported) Mirtazapine (Remeron), 1 TAB PO HS, (Reported) Olanzapine (Olanzapine), 1 TAB PO BID, (Reported) Past Medical History Past Medical History: No Pertinent History, Multiple Sclerosis, Seizures, Hypertension, Hepatitis C, Chronic Back Pain, HIV, Anxiety, Bipolar, Psychosis, Schizophrenia Past Surgical History: no surgical history Smoking Status: Current some day smoker Alcohol Use: Heavy Drug Use: methamphetamine Lives with: Family Lives In: Homeless Occupation: unemployed, disabled Review of Systems Constitutional: Denies: chills, fever, weakness Eyes: Denies: pain, blurred vision ENT: Denies: ear pain, nose pain, throat pain, mouth pain Respiratory: Denies: cough, shortness of breath Cardiovascular: Denies: chest pain, palpitations Gastrointestinal: Denies: abdominal pain, nausea, vomiting Genitourinary: Denies: burning, dysuria Male Genitalia: Denies: penile discharge, testicular pain Neurological: Denies: headache, dizziness Musculoskeletal: Denies: pain, swelling Integumentary: Denies: rash, lesions Allergic/Immunologic: Denies: hives, itching Hematologic/Lymphatic: Denies: no symptoms reported Psychiatric: Denies: depression, anxiety Physical Exam Vital Signs: Temperature: 97.9, Heart Rate: 99, Respiratory Rate: 16, BP: 134/86, Pulse Oximetry: 100, Weight: 95.450 Oxygen Flow Rate: 0 Physical Exam General: Awake and Alert, no acute distress. HEENT: Patient on exam does have very poor dentition with multiple dental caries and swelling of his upper gums without any sign of periapical abscess at this time. Patient does have tenderness to palpation of his maxillary sinuses bilaterally. Conjunctiva pink, Sclera clear, Mucus Membranes moist. Neck: Supple without masses and tenderness. Resp: Unlabored. Lungs clear to auscultation bilaterally. Heart: Regular Rate and rhythm, normal S1 and S2 without murmur, rub or gallop. Extremities: No cyanosis,clubbing or edema. Skin: Warm and Dry. Progress Results/Orders Results/Orders Vital Signs 06/18/25 17:26 Temp 97.9 Pulse 99 Resp 16 B/P (MAP) 134/86 Pulse Ox 100 O2 Flow Rate 0 Medical Decision Making Findings Patient is seen today with complaints of dental pain of his incisor upper inc isor. Patient also complains of pressure in his maxillary sinus. Patient denies any chest pain or shortness of breath or abdominal pain or nausea, vomiting, diarrhea. Patient has no other concern or complaint at this time. Prescription of Augmentin 875/125 mg, one tab twice a day for 10 days sent to patient's pharmacy. Patient will follow up with dentist as soon as possible for further eval in his teeth. Patient will return to ED with any worsening, concerning or changing symptoms. Departure Disposition: HOME / SELF CARE / HOMELESS Impression: Primary Impression: Dental abscess Additional Impression: Sinusitis Qualified Codes: J01.00 - Acute maxillary sinusitis, unspecified Condition: Improved Additional Instructions: Prescription of Augmentin 875/125 mg, one tab twice a day for 10 days sent to patient's pharmacy. Patient will follow up with dentist as soon as possible for further eval in his teeth. Patient will return to ED with any worsening, concerning or changing symptoms. Referrals: NO PRIMARY CARE PROVIDER (PCP) Prescriptions Amox Tr/Potassium Clavulanate (Augmentin 875-125 Tablet) 1 Each Tablet 1 TAB PO Q12H for 10 Days, #20 TAB Prov: PEDRO PABLO EDMONDS 06/18/25 Signature Scribe Signature: No scribe Attestation: No scribe PEDRO PABLO EDMONDS PAC Jun 18, 2025 19:01
[2025-06-18 19:09] VITALS: TEMP 97.9
== END 2025-06-18 19:10 | disposition home or self-care (01) ==
LOC: ER 17:23
DX: K04.7 Periapical abscess without sinus (principal); J32.9 Chronic sinusitis, unspecified; F15.90 Other stimulant use, unspecified, uncomplicated; F20.9 Schizophrenia, unspecified; F41.9 Anxiety disorder, unspecified; F31.9 Bipolar disorder, unspecified; F17.200 Nicotine dependence, unspecified, uncomplicated; Z59.00 Homelessness unspecified; Z88.8 Allergy status to other drugs, medicaments and biological substances; Z79.899 Other long term (current) drug therapy; Z56.0 Unemployment, unspecified
CPT/HCPCS: 99283

== ENCOUNTER 2025-11-15 22:07 | Emergency (ER) | payer MEDICAID ==
[~2025-11-15] VITALS: Ht 185.4 cm; Wt 90.9 kg
[~2025-11-15 22:07] MED LIST changes: +DIVA-134 PO; -DIVA-76 PO
--- NOTE | 2025-11-15 22:17 | Physician Documentation ---
History of Present Illness ~ Stated Complaint: L KNEE PAIN Primary Medical Doctor: None HPI This is a 45-year-old male who presents by EMS for left ear pain and discharge, no fever reported. After receiving report from EMS patient was placed in the lobby weight triage, patient eloped immediately from the prior to triage. Medication Reconciliation Allergies: Coded Allergies: pseudoephedrine (Unverified Allergy, Unknown, 11/15/25) Scheduled Divalproex Sodium DR* (Depakote DR*), 3 TAB PO BID, (Reported) Mirtazapine (Remeron), 1 TAB PO HS, (Reported) Olanzapine (Olanzapine), 1 TAB PO BID, (Reported) Past Medical History Past Medical History: No Pertinent History, Multiple Sclerosis, Seizures, Hypertension, Hepatitis C, Chronic Back Pain, HIV, Anxiety, Bipolar, Psychosis, Schizophrenia Past Surgical History: no surgical history Alcohol Use: Heavy Drug Use: methamphetamine Lives with: Family Lives In: Homeless Occupation: unemployed, disabled Review of Systems ROS As stated above in the HPI, otherwise all systems are reviewed and negative. Physical Exam Vital Signs: Heart Rate: 86, Respiratory Rate: 18, BP: 118/75, Pulse Oximetry: 98 Physical Exam VITALS: Reviewed and as above. GENERAL: Alert, nontoxic appearing, no apparent distress. HEENT: No obvious ear discharge, patient has eloped prior to otoscope exam. RESPIRATORY: No increased work of breathing, no respiratory distress, speaking in full clear sentences Progress Results/Orders Results/Orders Vital Signs 11/15/25 11/15/25 22:17 22:22 Temp 98.4 Pulse 86 86 Resp 18 16 B/P (MAP) 135/85 Pulse Ox 98 99 O2 Flow Rate 0 Medical Decision Making Additional information obtaine: N/A Findings MSE performed on presentation on EMS [facility] and patient returned to ED lobby by nursing staff to await triage, patient eloped prior to triage. Ear Diff. Dx: Considerations: Include: Cerumen impaction, Foreign body, Otitis externa, Otitis media, Perforation, Referred pain-dental, Referred pain- pharyngitis, Referred pain-TMJ syn., Tympanic Membrane Injury Eye Diff. Dx: Considerations: Unlikely: Chalazoin, Conjuctivits-allergic, Conjuctivitis-bacterial, Conjuctivits-chlamydial, Conjuctivitis-viral, Corneal abrasion, Corneal laceration, Corneal ulceration, Foreign body-conjuctiva, For eign body-corneal, Foreign body-intraocular, Foreign body-lid, Glaucoma, Globe rupture, Hordeolum, Iritis, Orbital cellulitis, Periobital cellulitis, Retinal artery occulsion, Retinal vein occlusion, Rust ring, Subconjunctival hem, Ultraviolet keratitis, Uveitis, Vitreous hemorrhage, Other Nose Diff. Dx: Considerations: Unlikely: Abrasion, Anterior nasal bleed, Avulsion, Contusion, Coagulopathy, Fracture-nasal bone, Fracture-septum, Hypertension, Laceration, Other, Posterior nasal bleed, Retained foreign body, Septal hematoma Tooth Diff. Dx: Considerations: Unlikely: Alveolar fracture, Aveolar osteitis, ANUG, Facial cellulitis, Periapical abscess, Periodontal abscess, Post- extraction bleeding, Pulpitis, Trigeminal neuralgia, Tooth-avulsion, Tooth- eruption, Tooth-fracture, Tooth-subluxation, Other Throat Diff Dx: Considerations: Unlikely: AIDS, Epiglottitis, Esophageal candidiasis, Hand foot mouth disease, Herpangina, Herpetic stomatitis, Herpes simplex, Infection mononucleosis, Immunodeficiency, Hardy's angina, Peritonsillar abscess, Peritonsillar cellulitis, Pharyngitis-diphtheria, Pharyngitis-strepococcal, Pharyngitis-viral, Thrush, URI, Other Departure Disposition: 07 LEFT AWOL/ELOPED Impression: Primary Impression: Ear pain, left Referrals: NO PRIMARY CARE PROVIDER (PCP) Signature Scribe Signature: No Scribe Attestation: The note accurately reflects work and decisions made by me.SHALONDA Michele 11/16/25 11:54 SAMUEL CARRANZA Nov 15, 2025 22:17
[2025-11-15 22:22] VITALS: BP 135/85; PULSE 86; RESP 16; TEMP 98.4; O2SAT 99
== END 2025-11-15 22:58 | disposition left against medical advice (07) ==
LOC: ER 22:07
DX: H92.02 Otalgia, left ear (principal); F15.90 Other stimulant use, unspecified, uncomplicated; G89.29 Other chronic pain; F41.9 Anxiety disorder, unspecified; F31.9 Bipolar disorder, unspecified; F20.9 Schizophrenia, unspecified; Z59.00 Homelessness unspecified; Z56.0 Unemployment, unspecified
CPT/HCPCS: 99283